=== PATIENT | male | born 1950 | race Caucasian/White ===

== ENCOUNTER 2020-04-01 06:09 | Outpatient (REF) | payer BC, SELFPAY ==
[2020-04-01 07:39] LABS: MANUAL DIFF FLAG NO
[2020-04-01 07:42] LABS: Basophils Percent Auto 0.6 % (0-2); Eosinophils Absolute Auto 0.3 X10*3/uL (0.0-0.4); Eosinophils Percent Auto 5.5 % (0-4); Hematocrit 41.8 % (42-52); Hemoglobin 14.1 g/dl (14.0-18.0); Imm Gran Abs Auto 0.01 X10*3/uL (0.00-0.03); Imm Gran Pct Auto 0.2 % (0.0-0.4); Lymphocytes Absolute Auto 2.1 X10*3/uL (1.2-4.9); Lymphocytes Percent Auto 38.9 % (20-40); Mean Corpuscular HGB Conc 33.7 g/dl (31.0-36.0); Mean Corpuscular Hemoglobin 31.8 pg (27.0-33.0); Mean Corpuscular Volume 94.1 fL (80-98); Mean Platelet Volume 10.7 fL (9.4-12.4); Monocytes Absolute Auto 0.3 X10*3/uL (0.1-1.2); Monocytes Percent Auto 5.9 % (2-11); Neutrophils Absolute Auto 2.6 X10*3/uL (2.0-8.3); Neutrophils Percent Auto 48.9 % (45-73); Platelet Count 244 X10*3/uL (160-400); Red Blood Count 4.44 X10*6/uL (4.60-5.80); Red Cell Distribution Width 11.9 % (11.0-16.0); White Blood Count 5.3 X10*3/uL (4.8-10.8)
[2020-04-01 08:12] LABS: Alanine Aminotransferase 26 U/L (0-40); Albumin Level 4.3 g/dL (3.5-5.0); Alkaline Phosphatase 69 U/L (39-117); Anion Gap 11 (12-20); Aspartate Amino Transferase 19 U/L (5-37); Bilirubin Total 0.5 mg/dL (0.0-1.0); Blood Urea Nitrogen 17 mg/dL (9-16); Calcium 8.5 mg/dL (8.4-10.2); Carbon Dioxide 26 mmol/L (22-29); Chloride 106 mmol/L (96-108); Cholesterol 160 mg/dL; Estimated Glomerular Filt Rate > 60; Glucose Fasting 93 mg/dL (60-99); HDL Cholesterol 41 mg/dL; LDL Cholesterol Calculated 107 mg/dl; Potassium 4.4 mmol/l (3.3-5.1); Sodium 139 mmol/L (135-145); Total Protein 6.2 g/dL (6.5-8.0); Triglycerides 64 mg/dL
[2020-04-01 08:24] LABS: Glucose Urine UA NEG (NEG); Leukocyte Esterase Urine NEG (NEG); Nitrite Urine NEG (NEG); Specific Gravity - Urine 1.025 (1.005-1.025); Urine Blood NEG (NEG); Urine Ketones NEG (NEG); Urine Protein NEG (NEG-TRACE)
[2020-04-01 08:38] LABS: Appearance Urine CLEAR; Color Urine YELLOW; UACC Culture Trigger NO
[2020-04-01 08:42] LABS: Mucus Urine 2+ /LPF; RBC Urine 0 /HPF (0); Squamous Epithelial Cell Urine 1+ /LPF; WBC Urine 0 /HPF (0-4)
== END 2020-04-01 06:10 | disposition home or self-care (01) ==
LOC: HO.LAB 06:09
PROVIDERS: Visit Provider Internal Medicine
DX: E78.5 Hyperlipidemia, unspecified (principal); R73.01 Impaired fasting glucose; M17.9 Osteoarthritis of knee, unspecified; F17.200 Nicotine dependence, unspecified, uncomplicated; N40.0 Benign prostatic hyperplasia without lower urinary tract symptoms; E55.9 Vitamin D deficiency, unspecified; E66.3 Overweight
CPT/HCPCS: 36415; 80053; 80061; 81001; 81003; 82306; 84443; 85025

== ENCOUNTER 2020-05-02 15:05 | Outpatient (REF) | payer MEDICARE, SELFPAY | END 2020-05-02 15:06 | disposition home or self-care (01) | LOC: HO.LAB 15:05 | PROVIDERS: PCP Internal Medicine; Visit Provider Internal Medicine | DX: Z20.828 Contact with and (suspected) exposure to other viral communicable diseases (principal) | CPT/HCPCS: C9803; U0003 ==

== ENCOUNTER 2020-06-07 15:39 | Outpatient (REF) | payer MEDICARE, SELFPAY | END 2020-06-07 15:40 | disposition home or self-care (01) | LOC: HO.LAB 15:39 | PROVIDERS: Visit Provider Internal Medicine | DX: Z20.822 Contact with and (suspected) exposure to COVID-19 (principal) | CPT/HCPCS: 36415; C9803; U0003 ==

== ENCOUNTER 2020-06-28 14:43 | Outpatient (REF) | payer MEDICARE, SELFPAY | END 2020-06-28 14:44 | disposition home or self-care (01) | LOC: HO.LAB 14:43 | PROVIDERS: PCP Internal Medicine; Visit Provider Internal Medicine | DX: Z20.822 Contact with and (suspected) exposure to COVID-19 (principal) | CPT/HCPCS: 36415; C9803; U0003 ==

== ENCOUNTER 2020-07-11 14:45 | Outpatient (REF) | payer MEDICARE, SELFPAY | END 2020-07-11 14:46 | disposition home or self-care (01) | LOC: HO.LAB 14:45 | PROVIDERS: Visit Provider Internal Medicine | DX: Z20.822 Contact with and (suspected) exposure to COVID-19 (principal) | CPT/HCPCS: 36415; C9803; U0003; U0005 ==

== ENCOUNTER 2020-07-23 14:39 | Outpatient (REF) | payer MEDICARE, SELFPAY | END 2020-07-23 14:40 | disposition home or self-care (01) | LOC: HO.LAB 14:39 | PROVIDERS: PCP Internal Medicine; Visit Provider Internal Medicine | DX: Z20.822 Contact with and (suspected) exposure to COVID-19 (principal) | CPT/HCPCS: 36415; C9803; U0003; U0005 ==

== ENCOUNTER 2020-10-07 15:03 | Outpatient (REF) | payer MEDICARE, SELFPAY ==
[2020-10-07 15:23] LABS: COVID-19 Test Negative (Negative)
== END 2020-10-07 15:04 | disposition home or self-care (01) ==
LOC: HO.LAB 15:03
PROVIDERS: Visit Provider Internal Medicine
DX: Z20.822 Contact with and (suspected) exposure to COVID-19 (principal)
CPT/HCPCS: 36415; 87635; C9803

== ENCOUNTER 2021-01-08 15:01 | Outpatient (REF) | payer MEDICARE, SELFPAY | END 2021-01-08 15:02 | disposition home or self-care (01) | LOC: HO.LAB 15:01 | PROVIDERS: PCP Internal Medicine; Visit Provider Internal Medicine | DX: Z20.822 Contact with and (suspected) exposure to COVID-19 (principal) | CPT/HCPCS: C9803; U0003; U0005 ==

== ENCOUNTER 2021-02-06 12:38 | Outpatient (REF) | payer MEDICARE, SELFPAY | END 2021-02-06 12:39 | disposition home or self-care (01) | LOC: HO.LAB 12:38 | PROVIDERS: PCP Internal Medicine; Visit Provider Internal Medicine | DX: Z20.822 Contact with and (suspected) exposure to COVID-19 (principal) | CPT/HCPCS: C9803; U0003; U0005 ==

== ENCOUNTER 2021-05-12 08:56 | Outpatient (REF) | payer MEDICARE, SELFPAY ==
[2021-05-12 09:30] LABS: COVID-19 Test Negative (Negative)
== END 2021-05-12 08:57 | disposition home or self-care (01) ==
LOC: HO.LAB 08:56
PROVIDERS: Visit Provider Internal Medicine
DX: Z20.822 Contact with and (suspected) exposure to COVID-19 (principal)
CPT/HCPCS: 36415; 87635; C9803

== ENCOUNTER 2021-05-22 11:29 | Outpatient (REF) | payer MEDICARE, SELFPAY ==
[2021-05-22 13:19] LABS: COVID-19 Test Negative (Negative)
== END 2021-05-22 11:30 | disposition home or self-care (01) ==
LOC: HO.LAB 11:29
PROVIDERS: Visit Provider Internal Medicine
DX: Z20.822 Contact with and (suspected) exposure to COVID-19 (principal)
CPT/HCPCS: 36415; 87635; C9803

== ENCOUNTER 2021-06-03 10:22 | Outpatient (REF) | payer MEDICARE, SELFPAY ==
[2021-06-03 15:42] LABS: Binax Internal Control QC Valid; Binax Now Covid-19 Ag Negative (Negative)
[2021-06-03 15:43] LABS: Binax Lot number: 9864
== END 2021-06-03 10:23 | disposition home or self-care (01) ==
LOC: HO.LAB 10:22
PROVIDERS: Visit Provider Internal Medicine
DX: Z20.822 Contact with and (suspected) exposure to COVID-19 (principal)
CPT/HCPCS: 36415; C9803

== ENCOUNTER 2021-08-19 06:10 | Outpatient (REF) | payer MEDICARE, SELFPAY ==
[2021-08-19 06:30] LABS: MANUAL DIFF FLAG NO
[2021-08-19 07:30] LABS: Basophils Percent Auto 0.5 % (0-2); Eosinophils Absolute Auto 0.4 X10*3/uL (0.0-0.4); Eosinophils Percent Auto 6.4 % (0-4); Hematocrit 41.4 % (42.0-52.0); Hemoglobin 13.4 g/dl (14.0-18.0); Imm Gran Abs Auto 0.01 X10*3/uL (0.00-0.03); Imm Gran Pct Auto 0.2 % (0.0-0.4); Lymphocytes Absolute Auto 1.8 X10*3/uL (1.2-4.9); Mean Corpuscular HGB Conc 32.4 g/dl (31.0-36.0); Mean Corpuscular Hemoglobin 30.7 pg (27.0-33.0); Mean Platelet Volume 10.5 fL (9.4-12.4); Monocytes Absolute Auto 0.3 X10*3/uL (0.1-1.2); Neutrophils Absolute Auto 3.6 x10*3/uL (2.0-8.3); Neutrophils Percent Auto 58.9 % (45-73); Platelet Count 257 X10*3/uL (160-400); Red Blood Count 4.36 X10*6/uL (4.60-5.80); Red Cell Distribution Width 12.3 % (11.0-16.0); White Blood Count 6.1 X10*3/uL (4.8-10.8)
[2021-08-19 07:42] LABS: Appearance Urine CLEAR; Color Urine YELLOW; Glucose Urine UA NEG (NEG); Leukocyte Esterase Urine NEG (NEG); Nitrite Urine NEG (NEG); Specific Gravity - Urine >= 1.030 (1.005-1.025); Urine Blood NEG (NEG); Urine Ketones NEG (NEG); Urine Protein NEG (NEG-TRACE)
[2021-08-19 08:05] LABS: Estimated Average Glucose 111 mg/dL; Hemoglobin A1c % 5.5 %
[2021-08-19 08:08] LABS: Alanine Aminotransferase 23 U/L (0-40); Albumin Level 4.3 g/dL (3.5-5.0); Alkaline Phosphatase 89 U/L (39-117); Anion Gap 12 (12-20); Aspartate Amino Transferase 19 U/L (5-37); Bilirubin Total 0.7 mg/dL (0.0-1.0); Blood Urea Nitrogen 18 mg/dL (9-16); Calcium 9.7 mg/dL (8.4-10.2); Carbon Dioxide 27 mmol/L (22-29); Chloride 105 mmol/L (96-108); Cholesterol 160 mg/dL; Estimated Glomerular Filt Rate > 60; Glucose Fasting 103 mg/dL (60-99); HDL Cholesterol 47 mg/dL; Sodium 140 mmol/L (135-145); Total Protein 6.5 g/dL (6.5-8.0)
[2021-08-19 08:12] LABS: LDL Cholesterol Calculated 104 mg/dl; Triglycerides 48 mg/dL
[2021-08-19 08:34] LABS: TSH reflex Free T4 1.27 uIU/mL (0.32-4.0)
[2021-08-19 09:04] LABS: Folate 14.2 ng/mL (> or = 4.0); Vitamin B12 208 pg/mL (200-900)
[2021-08-20 07:43] LABS: Syphilis Screen Nonreactive (Nonreactive)
[2021-08-21 14:29] LABS: Vitamin D 25-OH Total 27.4 ng/mL (>30)
== END 2021-08-19 06:11 | disposition home or self-care (01) ==
LOC: HO.LAB 06:10
PROVIDERS: PCP Internal Medicine; Visit Provider Internal Medicine
DX: I10 Essential (primary) hypertension (principal); R73.01 Impaired fasting glucose; R41.3 Other amnesia; E78.00 Pure hypercholesterolemia, unspecified; E55.9 Vitamin D deficiency, unspecified
CPT/HCPCS: 36415; 80053; 80061; 81003; 82306; 82607; 82746; 83036; 84443; 85025; 86780

== ENCOUNTER 2021-09-29 09:37 | Outpatient (REF) | payer MEDICARE, SELFPAY ==
[2021-09-29 11:26] LABS: COVID-19 Test Negative (Negative); IDNOW Serial# 55D5AD1C
== END 2021-09-29 09:38 | disposition home or self-care (01) ==
LOC: HO.LAB 09:37
PROVIDERS: Visit Provider Internal Medicine
DX: Z20.822 Contact with and (suspected) exposure to COVID-19 (principal)
CPT/HCPCS: 87635; C9803

== ENCOUNTER 2022-02-12 09:09 | Day surgery (SDC) | payer MEDICARE, SELFPAY ==
[2022-02-06 11:05] VITALS: BMI 29.0
[2022-02-12 09:41] VITALS: BMI 25.0
[2022-02-12 09:46] VITALS: BP 117/55; PULSE 51; RESP 16; TEMP 36.8; O2SAT 98
--- NOTE | 2022-02-12 10:26 | W.PM.OPN ---
Operative Note Operative Note Date of Service: 02/12/22 Narrative: Preop diagnosis: 1. Right Carpal tunnel syndrome Postop diagnosis: same Procedure: 1. Right Carpal tunnel release Surgeon: Yesenia Poole MD Anesthesia: local block using 1% lidocaine with epinephrine Findings: Thickened transverse carpal ligament. EBL: Less than 5 mL Specimens: None Complications: None Disposition: Brought to recovery room in stable condition Plan: Follow-up for 10-14 days for wound check and suture removal Indications: The patient is a 72 years old, with right carpal tunnel syndrome that has been unresponsive to nonoperative management. The risks and benefits of operative treatment including but not limited to risk of damage to blood vessels, nerves, tendons, infection, persistent pain, persistent symptoms, or possible need for additional surgery were discussed with the patient and the patient wishes to proceed with surgery. Procedure: Once consent was obtained a local block was performed using a combination of 1% lidocaine with epinephrine. The patient was then brought back to the operating suite and placed on the operative table in supine position. A tourniquet was applied to the proximal aspect of the right upper extremity and the limb was prepped and draped in a standard surgical fashion. Once assured that we had a good block, a 2.0 cm longitudinal incision was made centered over the carpal tunnel. The incision was made through the skin to the subcutaneous tissues using a #15 blade. Dissection was made down to the level of the transverse carpal ligament with care being taken to protect the palmar cutaneous nerve. Once the transverse carpal ligament was clearly visualized, a longitudinal incision was made in the transverse carpal ligament 1st using a #15 blade, then using tenotomy scissors under direct visualization. Care was taken to look for and protect the motor branch of the median nerve when seen in this area. Once satisfied with our carpal tunnel release the wound was copiously irrigated with normal saline and hemostasis was obtained with a brief period of local pressure. The skin edges were reapproximated with some 5.0 nylon suture material and a sterile dressing was applied. The patient appears to have tolerated the procedure well and with no complications. All digits were well vascularized at the conclusion of the case.
[2022-02-12 12:09] VITALS: BP 135/62; PULSE 50; RESP 18; O2SAT 98
== END 2022-02-12 12:20 | disposition home or self-care (01) ==
PROVIDERS: PCP Internal Medicine; Visit Provider Orthopaedic Surgery
PROC: (CPT 64721; principal; 2022-02-12 10:40)
DX: G56.01 Carpal tunnel syndrome, right upper limb (principal); R20.0 Anesthesia of skin; R73.01 Impaired fasting glucose; M17.0 Bilateral primary osteoarthritis of knee; E66.3 Overweight; E55.9 Vitamin D deficiency, unspecified; E53.8 Deficiency of other specified B group vitamins; Z68.29 Body mass index [BMI] 29.0-29.9, adult; F17.210 Nicotine dependence, cigarettes, uncomplicated
CPT/HCPCS: 64721; J0171; J2795

== ENCOUNTER 2022-04-15 14:03 | Outpatient (REF) | payer MEDICARE, SELFPAY ==
--- NOTE | 2022-04-15 09:30 | EMG_ITS ---
Please see scanned EMG / Nerve Conduction Report. MTDD
== END 2022-04-15 14:04 | disposition home or self-care (01) ==
LOC: HO.NEURO 14:03
PROVIDERS: PCP Internal Medicine; Visit Provider Nurse Practitioner Family
DX: R20.2 Paresthesia of skin (principal)
CPT/HCPCS: 95885; 95913

== ENCOUNTER 2023-02-18 05:55 | Outpatient (REF) | payer MEDICARE, SELFPAY ==
[2023-02-18 06:12] LABS: MANUAL DIFF FLAG NO
[2023-02-18 07:33] LABS: Appearance Urine Clear; Color Urine Yellow; Glucose Urine UA Negative (Negative); Leukocyte Esterase Urine Negative (Negative); Nitrite Urine Negative (Negative); PH 5.5 (5.0-9.0); Specific Gravity - Urine >= 1.030 (1.005-1.025); Urine Blood Negative (Negative); Urine Ketones Negative (Negative); Urine Protein Trace mg/dL (Neg-Trace)
[2023-02-18 07:38] LABS: Basophils Percent Auto 0.6 % (0-2); Eosinophils Absolute Auto 0.1 X10*3/uL (0.0-0.4); Eosinophils Percent Auto 3.9 % (0-4); Hematocrit 38.8 % (42.0-52.0); Imm Gran Abs Auto 0.01 X10*3/uL (0.00-0.03); Imm Gran Pct Auto 0.3 % (0.0-0.4); Lymphocytes Absolute Auto 1.4 X10*3/uL (1.2-4.9); Mean Corpuscular HGB Conc 33.5 g/dl (31.0-36.0); Mean Corpuscular Hemoglobin 32.9 pg (27.0-33.0); Mean Corpuscular Volume 98.2 fL (80.0-98.0); Mean Platelet Volume 10.4 fL (9.4-12.4); Monocytes Absolute Auto 0.1 X10*3/uL (0.1-1.2); Neutrophils Absolute Auto 1.7 x10*3/uL (2.0-8.3); Neutrophils Percent Auto 50.2 % (45-73); Platelet Count 180 X10*3/uL (160-400); Red Blood Count 3.95 X10*6/uL (4.60-5.80); Red Cell Distribution Width 12.8 % (11.0-16.0); White Blood Count 3.3 X10*3/uL (4.8-10.8)
[2023-02-18 07:53] LABS: Estimated Average Glucose 108 mg/dL; Hemoglobin A1c % 5.4 % (<6.0)
[2023-02-18 08:17] LABS: Alanine Aminotransferase 24 U/L (0-40); Albumin Level 4.1 g/dL (3.5-5.0); Alkaline Phosphatase 67 U/L (39-117); Anion Gap 10 (12-20); Aspartate Amino Transferase 18 U/L (5-37); Bilirubin Total 0.5 mg/dL (0.0-1.0); Blood Urea Nitrogen 17 mg/dL (9-16); Carbon Dioxide 27 mmol/L (22-29); Chloride 109 mmol/L (96-108); Cholesterol 147 mg/dL (<200); Estimated Glomerular Filt Rate > 60; Glucose Fasting 92 mg/dL (60-99); HDL Cholesterol 53 mg/dL (>40); LDL Cholesterol Calculated 88 mg/dL (<100); Potassium 3.8 mmol/L (3.3-5.1); Sodium 142 mmol/L (135-145); Triglycerides 32 mg/dL (<150)
[2023-02-18 08:41] LABS: Vitamin D 25-OH Total 40.6 ng/mL (>30)
[2023-02-18 08:46] LABS: Prostate Specific Antigen 3.68 ng/mL (<0.05-4.0); Vitamin B12 350 pg/mL (200-900)
== END 2023-02-18 05:56 | disposition home or self-care (01) ==
LOC: HO.LAB 05:55
PROVIDERS: PCP Internal Medicine; Visit Provider Internal Medicine
DX: Z00.00 Encounter for general adult medical examination without abnormal findings (principal); E55.9 Vitamin D deficiency, unspecified; E53.8 Deficiency of other specified B group vitamins; E78.00 Pure hypercholesterolemia, unspecified; N40.0 Benign prostatic hyperplasia without lower urinary tract symptoms; R73.9 Hyperglycemia, unspecified; R30.0 Dysuria; Z12.5 Encounter for screening for malignant neoplasm of prostate
CPT/HCPCS: 36415; 80053; 80061; 81003; 82306; 82607; 82746; 83036; 84153; 84443; 85025

== ENCOUNTER 2023-02-18 11:54 | Outpatient (AMB) | payer MEDICARE, SELFPAY ==
[2023-02-18 12:28] VITALS: BP 132/80; PULSE 57; O2SAT 98; BMI 25.0
--- NOTE | 2023-02-18 12:28 | MHC.PC.OV ---
Vital Signs 02/18/23 12:28 Height 6 ft Weight 184 lb 8 oz BMI 25.0 BP 132/80 Blood Pressure Location Lt brachial Position Sitting Pulse 57 Pulse Source Pulse Oximeter Pulse Oximetry (%) 98 Oxygen Delivery Method Room Air Intake Visit Reasons: Retinal detachment repair on R eye, 02/22 Cytology Supervisor Required: No Accompanied by: Self / Same As Patient Allergies No Known Allergies [No Known Allergies*] Allergy (Verified 02/18/23 12:47) Medication List - Last Reconciled 02/18/23 by Monroe Boswell MD cholecalciferol (vitamin D3) 50 mcg PO DAILY ibuprofen 800 mg PO TID PRN mecobalamin (vitamin B12) 1,000 mcg PO DAILY 90 days oxycodone-acetaminophen 10-325 mg 1 tab PO .3 to 4 times a day PRN 28 days terazosin 2 mg PO DAILY 90 days Tobacco use date assessed: 02/18/23 Fall risk assessment: No Falls in past year Last assessed Fall Risk: 02/18/23 Dental Screening Dental Screen Date: 02/18/23 Did you have a dental visit in the last 12 months?: No Did you have a dental problem in the last 6 months where you did not have access to dental care?: No Was dental information given to patient?: No HPI Retinal detachment repair on R eye, 02/22 HPI Details Patient comes in today at the request of Dr. Clem Fuchs for a preoperative medical examination for clearance for surgery He is scheduled for a retinal detachment repair on his right eye under local anesthesia with IV sedation on 02/22/2023 at 1 PM Patient states that he feels okay presently He denies any headaches or dizziness Denies any chest pains, no shortness of breath No nausea/ vomiting, no abdominal pain No change in bowel habits noted States that his chronic joint pains remain adequately controlled on his current medications Had his follow-up labs done earlier today - would like to discuss and go over his results States that he still has not been scheduled for his colonoscopy yet and would like to get his referral renewed again [facility] Medical History Vitamin B12 deficiency Osteoarthritis of knees, bilateral Overweight (BMI 25.0-29.9) Smoker Erectile dysfunction Chronic left shoulder pain Vitamin D deficiency Benign prostatic hyperplasia Impaired fasting glucose Osteoarthritis of knee Dyslipidemia Surgical History Hx of appendectomy No pertinent past surgical history Family History Father CVD (cardiovascular disease) Mother Medical history unknown Social History Housing: House Alcohol intake: never Patient Tobacco Use Status: Current everyday Tobacco user Tobacco use type: Cigarette Cigarette Packs Per Day: 0.5 Cigarettes Per Day: 10 e-Cigarette/Vaping Use: Never Used Second Hand Smoke Exposure: Yes service: No Current occupational status: employed and retired 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 1. Little interest or pleasure in doing things: not at all 2. Feeling down, depressed, or hopeless: not at all 3. Trouble falling or staying asleep, or sleeping too much: not at all 4. Feeling tired or having little energy: not at all 5. Poor appetite or overeating: not at all 6. Feeling bad about yourself - or that you are a failure or have let yourself or your family down: not at all 7. Trouble concentrating on things, such as reading the newspaper or watching television: not at all 8. Moving or speaking so slowly that other people could have noticed. Or the opposite - being so fidgety or restless that you have been moving around a lot more than usual: not at all 9. Thoughts that you would be better off or of hurting yourself in some way: not at all Total score: 0 Depression Screening Interpretation: Negative 51616 - PHQ-9 Billing: Yes Source: Developed by Drs. Erick Gurrola, Genie New, Ector Rosas and colleagues, with an educational neo from [employer]. Thrive Questionnaire Date Thrive assessed: 02/18/23 I am a: Patient What is your living situation today?: I have a steady place to live Within the past 12 months, did the food you bought not last and you didn't have the money to get more?: Never true Within the past 12 months, did you worry whether your food would run out before you got money to buy more?: Never true Do you have trouble paying for medicines?: No Do you have trouble getting transportation to medical appointments?: No Do you have trouble paying your heating and electricity bill?: No Do you have trouble taking care of your child, family member or friend?: No Do you have trouble with day-to-day activities such as bathing, preparing meals, shopping, managing finances, etc.?: No Are you currently unemployed and looking for a job?: No Are you interested in more education?: No Please select the resources that you would like help with: None Currently or been in a relationship where the following occur: no concerns reported AUDIT C Alcohol Use Questionnaire (AUDIT-C) 1. How often do you have a drink containing alcohol?: Never 3. How often do you have six or more drinks on one occasion?: Never Total Score: 0 Score Reviewed/Action Taken: Yes YOLI-7 AMB Questionnaire YOLI-7 Date YOLI - 7 assessed: 02/18/23 Feeling nervous, anxious, or on edge: 0 = Not at all Not being able to stop or control worryin = Not at all Worrying too much about different things: 0 = Not at all Trouble relaxin = Not at all Being so restless that it is hard to sit still: 0 = Not at all Becoming easily annoyed or irritable: 0 = Not at all Feeling afraid as if something awful might happen: 0 = Not at all Total YOLI-7 score (0-4 normal; 5-9 mild; 10-14 moderate; 15-21 severe): 0 Source: Developed by Drs. Erick Gurrola, Genie New, Ector Rosas and colleagues, with an educational neo from [employer]. Review of Systems Const Denies fatigue, Denies fever(s) and Denies headache(s) ENT Denies dysphagia, Denies dizziness, Denies otalgia, Denies headache(s), Denies neck pain, Denies odynophagia and Denies sore throat Card Denies chest pain, Denies rapid heart rate, Denies irregular heart rhythm, Denies palpitations and Denies dyspnea Resp Denies chest congestion, Denies cough, Denies dyspnea and Denies wheezing GI Denies abdominal pain, Denies constipation, Denies dysphagia, Denies diarrhea, Denies nausea, Denies odynophagia and Denies vomiting Denies dysuria, Reports nocturia (improved with Terazosin) and Denies urinary frequency Musc Denies back pain, Reports arthralgias (in both knees (chronic); left shoulder) and Denies neck pain Skin/Breast Denies rash Neuro Denies dizziness, Denies headache(s) and Denies paresthesias Endo Denies fatigue and Denies palpitations Aller/Immun Denies wheezing Physical exam (Primary Care) Vital Signs: Last Vital Signs Pulse 57 02/18/23 12:28 BP 132/80 02/18/23 12:28 Pulse Ox 98 02/18/23 12:28 Oxygen Delivery Method Room Air 02/18/23 12:28 BMI result Body Mass Index 25.0 Tobacco/Smoking Status: Tobacco use Status Tobacco use date assessed 02/18/23 02/18/23 12:33 Patient Tobacco Use Status Current everyday Tobacco 02/18/23 12:33 Tobacco use type Cigarette 02/18/23 12:33 e-Cigarette/Vaping Use Never Used 02/18/23 12:33 PHQ-9: PHQ-9 Score PHQ-9: Total score 0 02/18/23 13:55 Depression Screening Interpretation: Negative Thrive Assessment: Date of Thrive Assessment Date Thrive assessed 02/18/23 02/18/23 12:33 Currently or been in a relationship where the following occur: no concerns reported Const General: no acute distress and alert HENMT Ears: TM's normal bilaterally and EAC's normal Throat: Yes posterior oropharynx normal and Yes tonsils normal (no TP congestion) Neck Neck: Yes no lymphadenopathy and Yes supple Thyroid: Thyroid normal Resp Auscultation: clear to auscultation bilaterally, no rales and no wheezes Cardio Rate: regular rate Rhythm: regular rhythm Heart sounds: no murmurs GI Palpation (GI): Soft to palpation and nontender Auscultation: normal bowel sounds General: Yes no CVA tenderness Back/Spine/Pelvis Back: no CVA tenderness Skin Rashes: no rashes Extrem General: Yes no clubbing, cyanosis or edema Left upper extremity: shoulder/upper arm Details: tenderness Location: of the A-C joint and normal ROM Right lower extremity: knee Details: tenderness; no swelling Left lower extremity: knee Details: tenderness; no swelling Results Reviewed Results Reviewed: Laboratory Tests 02/18/23 06:10 WBC 3.3 L Hgb 13.0 L Hct 38.8 L Plt Count 180 D Sodium 142 Potassium 3.8 Creatinine 0.75 Estimated GFR > 60 Fasting Glucose 92 Hemoglobin A1c % 5.4 Calcium 9.0 D AST 18 ALT 24 Triglycerides 32 Cholesterol 147 LDL Cholesterol, Calc 88 HDL Cholesterol 53 Prostate Specific Ag 3.68 Vitamin B12 350 25-OH Vitamin D Total 40.6 TSH 1.60 Ur Specific Ceiba >= 1.030 H Urine Protein Trace Urine Glucose (UA) Negative Urine Blood Negative Assessment and Plan Assessment & Plan (1) Preoperative examination: Code(s): Z01.818 - Encounter for other preprocedural examination Plan: Patient presents with acceptable risks for planned low cardiac risk procedure He does not have any significant cardiac or pulmonary history and has no contraindications to undergo planned surgery Results of his labs done earlier today reviewed and discussed with patient (2) Retinal detachment, right: Code(s): H33.21 - Serous retinal detachment, right eye Plan: He is scheduled for retinal detachment repair of his right eye under local anesthesia with IV sedation on 02/22/[address] Clem Fuchs (3) Dyslipidemia: Code(s): E78.5 - Hyperlipidemia, unspecified Plan: Reinforced low cholesterol diet (4) Osteoarthritis of knees, bilateral: Code(s): M17.0 - Bilateral primary osteoarthritis of knee Qualifiers: Osteoarthritis type: primary Qualified Code(s): M17.0 - Bilateral primary osteoarthritis of knee Plan: Continue Ibuprofen 800 mg TID PRN and Oxycodone-Acetaminophen 10-325 mg 1 tablet 3 to 4 times a day as needed for increased pain; he is reminded to wean hold his Ibuprofen until his upcoming eye surgery is completed Follow up with orthopedics as scheduled (5) Chronic left shoulder pain: Code(s): M25.512 - Pain in left shoulder; G89.29 - Other chronic pain Plan: States that his shoulder pain has been controlled with cortisone injections from orthopedics every few months when needed Follow up with orthopedics as scheduled (6) Impaired fasting glucose: Code(s): R73.01 - Impaired fasting glucose Plan: Both his HgbA1c (5.4%) and FBS (92 mg/dl) were normal on his labs done earlier today Reinforced low calorie/low carb diet (7) Vitamin D deficiency: Code(s): E55.9 - Vitamin D deficiency, unspecified Plan: Continue Vitamin D3 2000 units QD (8) Vitamin B12 deficiency: Code(s): E53.8 - Deficiency of other specified B group vitamins Plan: Continue Vitamin B12 1000 mcg QD (9) Benign prostatic hyperplasia: Comment: S/P laser prostatectomy Code(s): N40.0 - Benign prostatic hyperplasia without lower urinary tract symptoms Qualifiers: Lower urinary tract symptom detail: urinary frequency Lower urinary tract symptom presence: symptoms present Qualified Code(s): N40.1 - Benign prostatic hyperplasia with lower urinary tract symptoms; R35.0 - Frequency of micturition Plan: Continue Terazosin 2 mg Q HS Advised that his serum PSA level remains mostly unchanged from previous at 3.68 on his recent labs Follow up with urology as scheduled (10) Erectile dysfunction: Code(s): N52.9 - Male erectile dysfunction, unspecified Qualifiers: Erectile dysfunction type: unspecified Qualified Code(s): N52.9 - Male erectile dysfunction, unspecified Plan: Continue Cialis 20 mg QD PRN (11) Smoker: Code(s): F17.200 - Nicotine dependence, unspecified, uncomplicated Plan: Counseled again on smoking cessation (12) Colon cancer screening: Code(s): Z12.11 - Encounter for screening for malignant neoplasm of colon Plan: Per patient request, will refer him again for screening colonoscopy He has been previously referred a few times over the past 2 to 3 years but he was never scheduled Plan He is currently medically optimized and has no medical contraindications to undergo eye surgery as planned - is CLEARED for SURGERY Follow up in 4 months Orders: Referrals Gastroenterology Referral Z12.11 - Encounter for screening for malignant neoplasm of colon Coding Level of Care Code Est Pt Level 4 (21107) Diagnoses Preoperative examination Z01.818 Retinal detachment, right H33.21 Dyslipidemia E78.5 Primary osteoarthritis of both knees M17.0 Osteoarthritis type: primary Chronic left shoulder pain M25.512; G89.29 Impaired fasting glucose R73.01 Vitamin D deficiency E55.9 Vitamin B12 deficiency E53.8 Benign prostatic hyperplasia with urinary frequency N40.1; R35.0 Lower urinary tract symptom detail: urinary frequency Lower urinary tract symptom presence: symptoms present Erectile dysfunction, unspecified erectile dysfunction type N52.9 Erectile dysfunction type: unspecified Smoker F17.200 Colon cancer screening Z12.11
== END 2023-02-18 12:59 | disposition home or self-care (01) ==
PROVIDERS: PCP Internal Medicine; Visit Provider Internal Medicine
DX: H33.21 Serous retinal detachment, right eye (principal); E55.9 Vitamin D deficiency, unspecified; Z01.818 Encounter for other preprocedural examination; F17.210 Nicotine dependence, cigarettes, uncomplicated; E78.5 Hyperlipidemia, unspecified; M17.0 Bilateral primary osteoarthritis of knee; M25.512 Pain in left shoulder; R73.01 Impaired fasting glucose; E53.8 Deficiency of other specified B group vitamins; N40.1 Benign prostatic hyperplasia with lower urinary tract symptoms; R35.0 Frequency of micturition; N52.9 Male erectile dysfunction, unspecified
CPT/HCPCS: 99214

== ENCOUNTER 2023-05-03 12:37 | Outpatient (AMB) | payer MEDICARE, SELFPAY ==
--- NOTE | 2023-05-03 13:05 | HO.NEPHOV ---
HPI Colonoscopy screening HPI Details 73 year old? female here today for pre colonoscopy screening.? Patient was sent to us by his PCP.? This is his first colonoscopy screening.? Patient denies any gastrointestinal symptoms in the past or at present.? Denies any personal or family history of gastrointestinal disease, colon polyps, or cancer.? Denies history of difficulty with sedation or anesthesia in the past.? Negative for history of sleep apnea.? Denies any history of cardiac, renal, pulmonary, or hepatic disease.?? No history of infectious? diseases like hepatitis A, B, C, HIV or tuberculosis.? Patient is not on any anticoagulation therapy. [facility] Medical History Vitamin B12 deficiency Osteoarthritis of knees, bilateral Overweight (BMI 25.0-29.9) Smoker Erectile dysfunction Chronic left shoulder pain Vitamin D deficiency Benign prostatic hyperplasia Impaired fasting glucose Osteoarthritis of knee Dyslipidemia Surgical History Hx of appendectomy No pertinent past surgical history Family History Father CVD (cardiovascular disease) Mother Medical history unknown Social History Housing: House Alcohol intake: never Patient Tobacco Use Status: Current everyday Tobacco user Tobacco use type: Cigarette Cigarette Packs Per Day: 0.5 Cigarettes Per Day: 10 e-Cigarette/Vaping Use: Never Used Second Hand Smoke Exposure: Yes service: No Current occupational status: employed and retired 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 Denies any issues with anesthesia in the past.? Denies any history of sleep apnea.? No history infectious diseases in the past or present.? Not on any anticoagulation therapy.? No family or personal history of colon cancer or polyps.? Patient denies melena, hematochezia, unintentional weight loss or ribbon like stools.? Discussed at length the pre-procedure,? prep, diet & medications as well as what to expect prior, during and after the procedure.?? Stressed the importance of good bowel prep. ?Recommended the use of Vaseline or Calmoseptine OTC & baby wipes with bowel movements to promote comfort.? ?Patient verbalizes understanding and agrees to plan of care.? He was given the opportunity to ask questions and all questions answered.? We will see him after the procedure. Coding Diagnoses Colon cancer screening Z12.11 Results Reviewed Nephrology Results: Hgb 13.0 g/dl (14.0-18.0) L 02/18/23 WBC 3.3 X10*3/uL (4.8-10.8) L 02/18/23 Plt Count 180 X10*3/uL (160-400) 02/18/23 Sodium 142 mmol/L (135-145) 02/18/23 Potassium 3.8 mmol/L (3.3-5.1) 02/18/23 Chloride 109 mmol/L (96-108) H 02/18/23 Carbon Dioxide 27 mmol/L (22-29) 02/18/23 BUN 17 mg/dL (9-16) H 02/18/23 Creatinine 0.75 mg/dL (0.5-1.4) 02/18/23 Calcium 9.0 mg/dL (8.4-10.2) 02/18/23 Urine Protein Trace mg/dL (Neg-Trace) 02/18/23
[2023-05-03 13:06] VITALS: BP 118/61; PULSE 66; BMI 25.8
--- NOTE | 2023-05-03 13:23 | MHC.OFFVIS ---
Intake Vital Signs 05/03/23 13:06 Height 6 ft Weight 190 lb 7.67 oz BMI 25.8 BP 118/61 Blood Pressure Location Lt brachial Position Sitting Pulse 66 Intake Visit Reasons: Colonoscopy screening Intake Note: Patient presents to in office visit today as a new patient for colonoscopy screening. CC: Patient denies having any GI symptoms and states he has never had a colonoscopy. Want Ad Clerk Required: No Allergies No Known Allergies [No Known Allergies*] Allergy (Verified 05/03/23 13:14) HPI Colonoscopy screening HPI Details 73 year old? male here today for pre colonoscopy screening.? Patient was sent to us by his PCP.? This is his first colonoscopy screening.? Patient denies any gastrointestinal symptoms in the past or at present.? Denies any personal or family history of gastrointestinal disease, colon polyps, or cancer.? Denies history of difficulty with sedation or anesthesia in the past.? Negative for history of sleep apnea.? Denies any history of cardiac, renal, pulmonary, or hepatic disease.?? No history of infectious? diseases like hepatitis A, B, C, HIV or tuberculosis.? Patient is not on any anticoagulation therapy. [facility] Medical History Vitamin B12 deficiency Osteoarthritis of knees, bilateral Overweight (BMI 25.0-29.9) Smoker Erectile dysfunction Chronic left shoulder pain Vitamin D deficiency Benign prostatic hyperplasia Impaired fasting glucose Osteoarthritis of knee Dyslipidemia Surgical History Hx of appendectomy No pertinent past surgical history Family History Father CVD (cardiovascular disease) Mother Medical history unknown Social History Housing: House Alcohol intake: never Patient Tobacco Use Status: Current everyday Tobacco user Tobacco use type: Cigarette Cigarette Packs Per Day: 0.5 Cigarettes Per Day: 10 e-Cigarette/Vaping Use: Never Used Second Hand Smoke Exposure: Yes service: No Current occupational status: employed and retired 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 Cognitive needs: No Hearing needs: No Vision needs: Yes Review of Systems Const Denies weight gain and Denies weight loss ENT Reports no additional complaints, Denies dysphagia and Denies odynophagia Card Reports no additional complaints Resp Reports no additional complaints GI Denies abdominal pain, Denies belching, Denies melena, Denies bloating, Denies change in bowel habits, Denies dysphagia, Denies excessive flatus, Denies dyspepsia, Denies heartburn, Denies diarrhea, Denies loose stools, Denies nausea, Denies odynophagia and Denies vomiting Reports no additional complaints Musc Reports no additional complaints Neuro Reports no additional complaints Psych Reports no additional complaints Endo Reports no additional complaints Physical Exam Vital Signs: Last Vital Signs Pulse 66 05/03/23 13:06 BP 118/61 05/03/23 13:06 BMI result Body Mass Index 25.8 Const General: healthy appearing, no acute distress and well developed Nutritional Appearance: well nourished Orientation/consciousness: patient oriented x3 HEENT Head: Yes normal to inspection, Yes normocephalic and Yes atraumatic Face and sinus: Yes normal facial exam Mouth: Normal oral and palatal mucosa present Throat: Yes posterior oropharynx normal, Yes tonsils normal and Yes uvula midline Eyes General: appearance normal, both eyes and all related structures Neck Neck: Yes normal visual inspection, Yes full ROM and Yes trachea midline Thyroid: Thyroid normal Resp Effort & Inspection: normal respiratory effort, able to speak in complete sentences, no tracheal deviation and symmetric chest movement Auscultation: clear to auscultation bilaterally Cardio Rate: regular rate GI Inspection: Yes normal to inspection and No distended Palpation (GI): Soft to palpation, not firm, nontender and No hepatosplenomegaly present Auscultation: normal bowel sounds General: Yes no CVA tenderness Back/Spine/Pelvis Back: no CVA tenderness Skin General skin exam: elasticity normal, turgor normal and dry skin Neuro General: patient oriented x3 Psych Appearance: grossly normal Mental Status: mental status grossly normal Affect: normal affect Assessment & Plan Assessment & Plan (1) Colon cancer screening: Code(s): Z12.11 - Encounter for screening for malignant neoplasm of colon Plan Patient denies any GI, cardiac or respiratory symptoms.? Denies any issues with anesthesia in the past.? Denies any history of sleep apnea.? No history infectious diseases in the past or present.? Not on any anticoagulation therapy.? No family or personal history of colon cancer or polyps.? Patient denies melena, hematochezia, unintentional weight loss or ribbon like stools.? Discussed at length the pre-procedure,? prep, diet & medications as well as what to expect prior, during and after the procedure.?? Stressed the importance of good bowel prep. ?Recommended the use of Vaseline or Calmoseptine OTC & baby wipes with bowel movements to promote comfort.? ?Patient verbalizes understanding and agrees to plan of care.? He was given the opportunity to ask questions and all questions answered.? We will see him after the procedure.? Medications: New bisacodyl (Dulcolax (bisacodyl)) take 4 tabs at noon the day before your colonoscopy 20 mg (4 x 5 mg) PO ONCE 1 day 4 tabs 0RF constipation Z12.11 - Encounter for screening for malignant neoplasm of colon polyethylene glycol 3350 (Miralax) As directed by gastroenterology department at [facility] 238 grams PO ONCE 238 grams 0RF Z12.11 - Encounter for screening for malignant neoplasm of colon Coding Level of Care Code New Pt Level 3 (85571) Diagnoses Colon cancer screening Z12.11 Time Spent (min) 40 Comment 30 minutes spent with patient and additional 10 minutes spent reviewing his records
== END 2023-05-03 13:36 | disposition home or self-care (01) ==
PROVIDERS: PCP Internal Medicine; Visit Provider Nurse Practitioner Family
DX: Z01.818 Encounter for other preprocedural examination (principal); Z12.11 Encounter for screening for malignant neoplasm of colon
CPT/HCPCS: 99202

== ENCOUNTER → 2023-05-03 12:37 | Outpatient (BNVA) | payer MEDICARE, SELFPAY | PROVIDERS: PCP Internal Medicine; Visit Provider Nurse Practitioner Family | DX: Z12.11 Encounter for screening for malignant neoplasm of colon (principal) | CPT/HCPCS: 99202 ==

== ENCOUNTER 2023-06-21 14:26 | Outpatient (AMB) | payer MEDICARE, SELFPAY ==
[2023-06-21 14:29] VITALS: BP 132/86; PULSE 82; O2SAT 98; BMI 25.4
--- NOTE | 2023-06-21 14:29 | MHC.PC.OV ---
Vital Signs 06/21/23 14:29 Height 6 ft Weight 187 lb 4 oz BMI 25.4 BP 132/86 Blood Pressure Location Lt brachial Position Sitting Pulse 82 Pulse Source Pulse Oximeter Pulse Oximetry (%) 98 Oxygen Delivery Method Room Air Intake Visit Reasons[facility] Evs Attendant Required: No Accompanied by: Self / Same As Patient Allergies No Known Allergies [No Known Allergies*] Allergy (Verified 07/22/23 12:36) Tobacco use date assessed: 06/21/23 Fall risk assessment: No Falls in past year Last assessed Fall Risk: 06/21/23 Dental Screening Dental Screen Date: 06/21/23 Did you have a dental visit in the last 12 months?: No Did you have a dental problem in the last 6 months where you did not have access to dental care?: No Was dental information given to patient?: No HPI [facility] HPI Details Patient comes in today for his follow up visit States that he has been experiencing increased fatigued lately Has also noticed that he feels very tired and sleepy throughout the day more often than before over the past several weeks and wants to see if he can get tested for sleep apnea He denies any headaches or dizziness Denies any chest pains, no SOB No nausea/vomiting, no abdominal pain No change in bowel habits noted States that his chronic joint pains remain adequately controlled on his current medications - needs his pain med Rx and Vitamin B12 Rx refilled Adds that he still has ED (ongoing for a few years now) and that his previous Rx of Cialis does not seem to be helping him much lately No follow up labs were ordered or needed for him after he was last seen in January 2023 [facility] Medical History Vitamin B12 deficiency Osteoarthritis of knees, bilateral Overweight (BMI 25.0-29.9) Smoker Erectile dysfunction Chronic left shoulder pain Vitamin D deficiency Benign prostatic hyperplasia Impaired fasting glucose Osteoarthritis of knee Dyslipidemia Surgical History Hx of appendectomy No pertinent past surgical history Family History Father CVD (cardiovascular disease) Mother Medical history unknown Social History Housing: House Alcohol intake: never Patient Tobacco Use Status: Current everyday Tobacco user Tobacco use type: Cigarette Cigarette Packs Per Day: 0.5 Cigarettes Per Day: 10 e-Cigarette/Vaping Use: Never Used Second Hand Smoke Exposure: Yes service: No Current occupational status: employed and retired 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 1. Little interest or pleasure in doing things: not at all 2. Feeling down, depressed, or hopeless: not at all 3. Trouble falling or staying asleep, or sleeping too much: not at all 4. Feeling tired or having little energy: not at all 5. Poor appetite or overeating: not at all 6. Feeling bad about yourself - or that you are a failure or have let yourself or your family down: not at all 7. Trouble concentrating on things, such as reading the newspaper or watching television: not at all 8. Moving or speaking so slowly that other people could have noticed. Or the opposite - being so fidgety or restless that you have been moving around a lot more than usual: not at all 9. Thoughts that you would be better off or of hurting yourself in some way: not at all Total score: 0 Depression Screening Interpretation: Negative Depression Screening Done: Yes 58327 - PHQ-9 Billing: Yes Source: Developed by Drs. Erick Gurrola, Genie New, Ector Rosas and colleagues, with an educational neo from [employer]. Thrive Questionnaire Date Thrive assessed: 06/21/23 I am a: Patient What is your living situation today?: I have a steady place to live Within the past 12 months, did the food you bought not last and you didn't have the money to get more?: Never true Within the past 12 months, did you worry whether your food would run out before you got money to buy more?: Never true Do you have trouble paying for medicines?: No Do you have trouble getting transportation to medical appointments?: No Do you have trouble paying your heating and electricity bill?: No Do you have trouble taking care of your child, family member or friend?: No Do you have trouble with day-to-day activities such as bathing, preparing meals, shopping, managing finances, etc.?: No Are you currently unemployed and looking for a job?: No Are you interested in more education?: No Please select the resources that you would like help with: None Currently or been in a relationship where the following occur: no concerns reported THRIVE Score: 0 AUDIT C Alcohol Use Questionnaire (AUDIT-C) 1. How often do you have a drink containing alcohol?: Never 3. How often do you have six or more drinks on one occasion?: Never Total Score: 0 Score Reviewed/Action Taken: Yes YOLI-7 AMB Questionnaire YOLI-7 Date YOLI - 7 assessed: 06/21/23 Feeling nervous, anxious, or on edge: 0 = Not at all Not being able to stop or control worryin = Not at all Worrying too much about different things: 0 = Not at all Trouble relaxin = Not at all Being so restless that it is hard to sit still: 0 = Not at all Becoming easily annoyed or irritable: 0 = Not at all Feeling afraid as if something awful might happen: 0 = Not at all Total YOLI-7 score (0-4 normal; 5-9 mild; 10-14 moderate; 15-21 severe): 0 Source: Developed by Drs. Erick Gurrola, Genie New, Ector oRsas and colleagues, with an educational neo from [employer]. Review of Systems Const Denies chills, Reports daytime sleepiness, Reports fatigue (increased lately), Denies fever(s) and Denies headache(s) ENT Denies dysphagia, Denies dizziness, Denies otalgia, Denies headache(s), Denies neck pain, Denies odynophagia and Denies sore throat Card Denies chest pain, Denies rapid heart rate, Denies irregular heart rhythm, Denies palpitations and Denies dyspnea Resp Denies chest congestion, Denies cough, Denies dyspnea and Denies wheezing GI Denies abdominal pain, Denies constipation, Denies dysphagia, Denies diarrhea, Denies nausea, Denies odynophagia and Denies vomiting Reports erectile dysfunction, Denies dysuria, Denies nocturia (improved with Terazosin) and Denies urinary frequency Musc Denies back pain, Reports arthralgias (in both knees (chronic); in the left shoulder) and Denies neck pain Skin/Breast Denies rash Neuro Denies dizziness, Denies headache(s) and Denies paresthesias Endo Reports fatigue (increased lately) and Denies palpitations Aller/Immun Denies wheezing Physical exam (Primary Care) Vital Signs: Last Vital Signs Pulse 82 06/21/23 14:29 BP 132/86 06/21/23 14:29 Pulse Ox 98 06/21/23 14:29 Oxygen Delivery Method Room Air 06/21/23 14:29 BMI result Body Mass Index 25.4 Tobacco/Smoking Status: Tobacco use Status Tobacco use date assessed 06/21/23 06/21/23 14:34 Patient Tobacco Use Status Current everyday Tobacco 06/21/23 14:34 Tobacco use type Cigarette 06/21/23 14:34 e-Cigarette/Vaping Use Never Used 06/21/23 14:34 PHQ-9: PHQ-9 Score PHQ-9: Total score 0 06/21/23 15:14 Depression Screening Interpretation: Negative Thrive Assessment: Date of Thrive Assessment Date Thrive assessed 06/21/23 06/21/23 14:34 Currently or been in a relationship where the following occur: no concerns reported Const General: no acute distress and alert HENMT Ears: TM's normal bilaterally and EAC's normal Throat: Yes posterior oropharynx normal and Yes tonsils normal (no TP congestion) Neck Neck: Yes no lymphadenopathy and Yes supple Thyroid: Thyroid normal Resp Auscultation: clear to auscultation bilaterally, no rales and no wheezes Cardio Rate: regular rate Rhythm: regular rhythm Heart sounds: no murmurs GI Palpation (GI): Soft to palpation and nontender Auscultation: normal bowel sounds General: Yes no CVA tenderness Back/Spine/Pelvis Back: no CVA tenderness Thoracic/Lumbar Spine: No lumbar spinal tenderness Skin Rashes: no rashes Extrem General: Yes no clubbing, cyanosis or edema Left upper extremity: shoulder/upper arm Details: tenderness Location: of the A-C joint and normal ROM Right lower extremity: knee Details: tenderness; no swelling Left lower extremity: knee Details: tenderness; no swelling Assessment and Plan Assessment & Plan (1) Fatigue: Code(s): R53.83 - Other fatigue Qualifiers: Fatigue type: unspecified Qualified Code(s): R53.83 - Other fatigue Plan: Have discussed with patient that his recently increasing fatigue is likely multifactorial, including the fact that he is on opioid Rx on a chronic basis, as well as his difficulty sleeping through the night due to his prostate issues As he is concerned about the possibility of sleep apnea, will refer him to Sleep Medicine for further evaluation and management (2) Daytime somnolence: Code(s): R40.0 - Somnolence Plan: Will refer him to Sleep Medicine for further evaluation and to assess for sleep apnea (3) Dyslipidemia: Code(s): E78.5 - Hyperlipidemia, unspecified Plan: Reinforced low cholesterol diet His fasting lipids when last checked in January 2023 were within normal range/at or near goal Will recheck his labs and fasting lipids in a couple of months for follow up (4) Osteoarthritis of knees, bilateral: Code(s): M17.0 - Bilateral primary osteoarthritis of knee Qualifiers: Osteoarthritis type: primary Qualified Code(s): M17.0 - Bilateral primary osteoarthritis of knee Plan: Continue Ibuprofen 800 mg TID PRN and Oxycodone-Acetaminophen 10-325 mg 1 tablet 3 to 4 times a day as needed for increased pain (Rx refilled) Follow up with orthopedics as scheduled (5) Chronic left shoulder pain: Code(s): M25.512 - Pain in left shoulder; G89.29 - Other chronic pain Plan: States that his shoulder pain has been adequately controlled/managed with cortisone injections from orthopedics every few months when needed Follow up with orthopedics as scheduled (6) Impaired fasting glucose: Code(s): R73.01 - Impaired fasting glucose Plan: Both his HgbA1c (5.4%) and FBS (92 mg/dl) were normal on his labs done back in January 2023 Reinforced low calorie/low carb diet (7) Vitamin D deficiency: Code(s): E55.9 - Vitamin D deficiency, unspecified Plan: Continue Vitamin D3 2000 units QD (8) Vitamin B12 deficiency: Code(s): E53.8 - Deficiency of other specified B group vitamins Plan: Continue Vitamin B12 1000 mcg QD (9) Benign prostatic hyperplasia: Comment: S/P laser prostatectomy Code(s): N40.0 - Benign prostatic hyperplasia without lower urinary tract symptoms Qualifiers: Lower urinary tract symptom presence: symptoms present Lower urinary tract symptom detail: urinary frequency Qualified Code(s): N40.1 - Benign prostatic hyperplasia with lower urinary tract symptoms; R35.0 - Frequency of micturition Plan: Continue Terazosin 2 mg Q HS His serum PSA level remained mostly unchanged from previous at 3.68 on his most recent labs Follow up with urology as scheduled (10) Erectile dysfunction: Code(s): N52.9 - Male erectile dysfunction, unspecified Qualifiers: Erectile dysfunction type: unspecified Qualified Code(s): N52.9 - Male erectile dysfunction, unspecified Plan: Was on Cialis 20 mg QD PRN in the past but he states that they are no longer helping as much Will try switching him over to Sildenafil 50 mg PRN (11) Smoker: Code(s): F17.200 - Nicotine dependence, unspecified, uncomplicated Plan: Counseled again on smoking cessation Plan To return in July 2023 for his preop exam and follow up Orders: Orders Complete Blood Count Auto Diff 08/09/23 D64.9 - Anemia, unspecified Vitamin D 25-OH Total 08/09/23 E55.9 - Vitamin D deficiency, unspecified Comprehensive [place]. Panel Fast 08/09/23 E78.00 - Pure hypercholesterolemia, unspecified Lipid Panel 08/09/23 E78.00 - Pure hypercholesterolemia, unspecified TSH reflex Free T4 08/09/23 E78.00 - Pure hypercholesterolemia, unspecified UA CC w/rflx Micro + Cult 08/09/23 R30.0 - Dysuria Referrals Sleep Medicine Referral R53.83 - Other fatigue, R40.0 - Somnolence Medications: New sildenafil administer 30 minutes to 4 hours before activity 50 mg PO DAILY PRN 6 tabs 0RF sexual activity Changed From mecobalamin (vitamin B12) 1,000 mcg PO DAILY 90 days 90 tabs 1RF To mecobalamin (vitamin B12) 1,000 mcg PO DAILY 90 tabs 1RF 90 days Refilled oxycodone-acetaminophen 10-325 mg 1 tab PO .3 to 4 times a day PRN 112 tabs 0RF pain 28 days Coding Level of Care Code Est Pt Level 4 (44002) Diagnoses Fatigue, unspecified type R53.83 Fatigue type: unspecified Daytime somnolence R40.0 Dyslipidemia E78.5 Primary osteoarthritis of both knees M17.0 Osteoarthritis type: primary Chronic left shoulder pain M25.512; G89.29 Impaired fasting glucose R73.01 Vitamin D deficiency E55.9 Vitamin B12 deficiency E53.8 Benign prostatic hyperplasia with urinary frequency N40.1; R35.0 Lower urinary tract symptom presence: symptoms present Lower urinary tract symptom detail: urinary frequency Erectile dysfunction, unspecified erectile dysfunction type N52.9 Erectile dysfunction type: unspecified Smoker F17.200
== END 2023-06-21 15:17 | disposition home or self-care (01) ==
PROVIDERS: PCP Internal Medicine; Visit Provider Internal Medicine
DX: R53.83 Other fatigue (principal); R40.0 Somnolence; E78.5 Hyperlipidemia, unspecified; M17.0 Bilateral primary osteoarthritis of knee; M25.512 Pain in left shoulder; G89.29 Other chronic pain; R73.01 Impaired fasting glucose; E55.9 Vitamin D deficiency, unspecified; E53.8 Deficiency of other specified B group vitamins; N40.1 Benign prostatic hyperplasia with lower urinary tract symptoms; R35.0 Frequency of micturition; N52.9 Male erectile dysfunction, unspecified; F17.200 Nicotine dependence, unspecified, uncomplicated
CPT/HCPCS: 99214

== ENCOUNTER 2023-07-22 11:25 | Outpatient (AMB) | payer MEDICARE, SELFPAY ==
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
== END 2023-07-22 13:05 | disposition home or self-care (01) ==
LOC: HO.HMGH 11:26
PROVIDERS: PCP Internal Medicine; Visit Provider Internal Medicine
DX: F43.10 Post-traumatic stress disorder, unspecified (principal); F32.A Depression, unspecified
CPT/HCPCS: 99442

== ENCOUNTER 2023-09-15 13:14 | Outpatient (AMB) | payer MEDICARE, SELFPAY ==
--- NOTE | 2023-09-15 13:15 | MHC.PC.OV ---
Vital Signs 09/15/23 13:21 Height 6 ft Weight 181 lb 4 oz BMI 24.6 BP 118/56 L Blood Pressure Location Lt brachial Position Sitting Respiration 16 Pulse 70 Pulse Source Pulse Oximeter Pulse Oximetry (%) 97 Oxygen Delivery Method Room Air Intake Visit Reasons: Left eye Cataracts -09/16/23 Intake Note: Patient is here for a Pre-op for Right eye Cataracts surgery scheduled with Dr. Swift on 09/16/23, . 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 Accompanied by: Self / Same As Patient Allergies No Known Allergies [No Known Allergies*] Allergy (Verified 09/15/23 14:18) Medication List - Last Reconciled 09/15/23 by Monroe Boswell MD atropine 1% drps ophthalmic (eye) bisacodyl (Dulcolax (bisacodyl)) 20 mg (4 x 5 mg) PO ONCE 1 day cholecalciferol (vitamin D3) 50 mcg PO DAILY mecobalamin (vitamin B12) 1,000 mcg PO DAILY 90 days oxycodone-acetaminophen 10-325 mg 1 tab PO .3 to 4 times a day PRN 28 days polyethylene glycol 3350 (Miralax) 238 grams PO ONCE prednisolone acetate 1% 1 drp ophthalmic (eye) BID sildenafil 50 mg PO DAILY PRN terazosin 2 mg PO DAILY 90 days Tobacco use date assessed: 07/22/23 Fall risk assessment: No Falls in past year Last assessed Fall Risk: 09/15/23 Dental Screening Dental Screen Date: 07/22/23 HPI Left eye Cataracts -09/16/23 HPI Details Patient comes in today at the request of Dr. Miracle Swift for a preoperative medical examination for clearance for surgery He is scheduled for cataract extraction/phacoemulsification with IOL of the right eye under MAC tomorrow, 09/16/2023 Patient states that he currently feels okay He denies any headaches or dizziness Denies any chest pains, no SOB No nausea/vomiting, no abdominal pain No change in bowel habits noted States that he needs a couple of his Rx refilled PFSH Medical History Vitamin B12 deficiency Osteoarthritis of knees, bilateral Overweight (BMI 25.0-29.9) Smoker Erectile dysfunction Chronic left shoulder pain Vitamin D deficiency Benign prostatic hyperplasia Impaired fasting glucose Osteoarthritis of knee Dyslipidemia Surgical History Hx of appendectomy No pertinent past surgical history Family History Father CVD (cardiovascular disease) Mother Medical history unknown Social History Housing: House Alcohol intake: never Patient Tobacco Use Status: Current everyday Tobacco user Tobacco use type: Cigarette Cigarette Packs Per Day: 0.5 Cigarettes Per Day: 10 e-Cigarette/Vaping Use: Never Used Second Hand Smoke Exposure: Yes service: No Current occupational status: employed and retired 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 Erick Gurrola, Genie New, Ector Rosas and colleagues, with an educational neo from [employer]. Review of Systems Const Reports difficulty sleeping, Denies fatigue, Denies fever(s) and Denies headache(s) Eyes Reports blurry vision (in the right eye) ENT Denies dysphagia, Denies dizziness, Denies otalgia, Denies headache(s), Denies neck pain, Denies odynophagia and Denies sore throat Card Denies chest pain, Denies rapid heart rate, Denies irregular heart rhythm, Denies palpitations and Denies dyspnea Resp Denies chest congestion, Denies cough and Denies dyspnea GI Denies abdominal pain, Denies constipation, Denies dysphagia, Denies diarrhea, Denies nausea, Denies odynophagia and Denies vomiting Denies dysuria, Denies nocturia (improved with Terazosin) and Denies urinary frequency Musc Denies back pain, Reports arthralgias (in both knees (chronic); in the left shoulder) and Denies neck pain Skin/Breast Denies rash Neuro Denies dizziness, Denies headache(s) and Denies paresthesias Psych Reports anxiety and Denies suicidal ideation Endo Denies fatigue and Denies palpitations Physical exam (Primary Care) Vital Signs: Last Vital Signs Pulse 70 09/15/23 13:21 Resp 16 09/15/23 13:21 BP 118/56 L 09/15/23 13:21 Pulse Ox 97 09/15/23 13:21 Oxygen Delivery Method Room Air 09/15/23 13:21 BMI result Body Mass Index 24.6 Tobacco/Smoking Status: Tobacco use Status Tobacco use date assessed 07/22/23 09/15/23 13:15 Patient Tobacco Use Status Current everyday Tobacco 09/15/23 13:15 Tobacco use type Cigarette 09/15/23 13:15 e-Cigarette/Vaping Use Never Used 09/15/23 13:15 Thrive Assessment: Date of Thrive Assessment Date Thrive assessed 07/22/23 09/15/23 13:15 Const General: no acute distress and alert HENMT Throat: Yes posterior oropharynx normal and Yes tonsils normal (no TP congestion) Neck Neck: Yes no lymphadenopathy and Yes supple Thyroid: Thyroid normal Resp Auscultation: clear to auscultation bilaterally, no rales and no wheezes Cardio Rate: regular rate Rhythm: regular rhythm Heart sounds: no murmurs GI Palpation (GI): Soft to palpation and nontender Auscultation: normal bowel sounds General: Yes no CVA tenderness Back/Spine/Pelvis Back: no CVA tenderness Thoracic/Lumbar Spine: No lumbar spinal tenderness Skin Rashes: no rashes Extrem General: Yes no clubbing, cyanosis or edema Left upper extremity: shoulder/upper arm Details: tenderness Location: of the A-C joint and normal ROM Right lower extremity: knee Details: tenderness; no swelling Left lower extremity: knee Details: tenderness; no swelling Assessment and Plan Assessment & Plan (1) Preoperative examination: Code(s): Z01.818 - Encounter for other preprocedural examination Plan: Patient presents with acceptable risks for planned low cardiac risk procedure He currently does not appear to have any medical contraindication for the proposed surgery as he has no significant cardiac history (2) Cataract of right eye: Code(s): H26.9 - Unspecified cataract Qualifiers: Cataract type: unspecified Qualified Code(s): H26.9 - Unspecified cataract Plan: He is scheduled for cataract extraction/phacoemulsification with IOL of the right eye under MAC tomorrow, 09/16/2023, with Dr. Miracle Swift (3) Dyslipidemia: Code(s): E78.5 - Hyperlipidemia, unspecified Plan: Reinforced low cholesterol diet His fasting lipids when last checked in January 2023 were within normal range/at or near goal (4) Osteoarthritis of knees, bilateral: Code(s): M17.0 - Bilateral primary osteoarthritis of knee Qualifiers: Osteoarthritis type: primary Qualified Code(s): M17.0 - Bilateral primary osteoarthritis of knee Plan: Continue Ibuprofen 800 mg TID PRN and Oxycodone-Acetaminophen 10-325 mg 1 tablet 3 to 4 times a day as needed for increased pain (Rx refilled) Follow up with orthopedics as scheduled He is reminded NOT to take his Ibuprofen until his surgery is completed (5) Chronic left shoulder pain: Code(s): M25.512 - Pain in left shoulder; G89.29 - Other chronic pain Plan: States that his shoulder pain has been adequately controlled/managed with cortisone injections from orthopedics every few months when needed Follow up with orthopedics as scheduled (6) Impaired fasting glucose: Code(s): R73.01 - Impaired fasting glucose Plan: Improved / resolved as both his HgbA1c (5.4%) and FBS (92 mg/dl) were normal on his labs done back in January 2023 Reinforced low calorie/low carb diet (7) Vitamin D deficiency: Code(s): E55.9 - Vitamin D deficiency, unspecified Plan: Continue Vitamin D3 2000 units QD (8) Vitamin B12 deficiency: Code(s): E53.8 - Deficiency of other specified B group vitamins Plan: Continue Vitamin B12 1000 mcg QD (9) Benign prostatic hyperplasia: Comment: S/P laser prostatectomy Code(s): N40.0 - Benign prostatic hyperplasia without lower urinary tract symptoms Qualifiers: Lower urinary tract symptom presence: symptoms present Lower urinary tract symptom detail: urinary frequency Qualified Code(s): N40.1 - Benign prostatic hyperplasia with lower urinary tract symptoms; R35.0 - Frequency of micturition Plan: Continue Terazosin 2 mg Q HS His serum PSA level remained mostly unchanged from previous at 3.68 on his most recent labs Follow up with urology as scheduled (10) Erectile dysfunction: Code(s): N52.9 - Male erectile dysfunction, unspecified Qualifiers: Erectile dysfunction type: unspecified Qualified Code(s): N52.9 - Male erectile dysfunction, unspecified Plan: Continue Sildenafil 50 mg PRN as instructed - Rx refilled per request (11) Smoker: Code(s): F17.200 - Nicotine dependence, unspecified, uncomplicated Plan: Counseled again on smoking cessation Plan Patient currently appears medically optimized and has no medical contraindications to undergo right eye surgery as planned - he is MEDICALLY CLEARED for proposed cataract surgery of the right eye under MAC with Dr. Swift tomorrow Follow up in 4 months Medications: Refilled oxycodone-acetaminophen 10-325 mg 1 tab PO .3 to 4 times a day 28 days PRN 112 tabs 0RF pain sildenafil administer 30 minutes to 4 hours before activity 50 mg PO DAILY PRN 6 tabs 0RF sexual activity Coding Level of Care Code Est Pt Level 4 (62712) Diagnoses Preoperative examination Z01.818 Cataract of right eye, unspecified cataract type H26.9 Cataract type: unspecified Dyslipidemia E78.5 Primary osteoarthritis of both knees M17.0 Osteoarthritis type: primary Chronic left shoulder pain M25.512; G89.29 Impaired fasting glucose R73.01 Vitamin D deficiency E55.9 Vitamin B12 deficiency E53.8 Benign prostatic hyperplasia with urinary frequency N40.1; R35.0 Lower urinary tract symptom presence: symptoms present Lower urinary tract symptom detail: urinary frequency Erectile dysfunction, unspecified erectile dysfunction type N52.9 Erectile dysfunction type: unspecified Smoker F17.200
[2023-09-15 13:21] VITALS: BP 118/56; PULSE 70; RESP 16; O2SAT 97; BMI 24.6
== END 2023-09-15 14:29 | disposition home or self-care (01) ==
PROVIDERS: PCP Internal Medicine; Visit Provider Internal Medicine
DX: Z01.818 Encounter for other preprocedural examination (principal); H26.9 Unspecified cataract; E78.5 Hyperlipidemia, unspecified; M17.0 Bilateral primary osteoarthritis of knee; M25.512 Pain in left shoulder; G89.29 Other chronic pain; R73.01 Impaired fasting glucose; E55.9 Vitamin D deficiency, unspecified; E53.8 Deficiency of other specified B group vitamins; N40.1 Benign prostatic hyperplasia with lower urinary tract symptoms; R35.0 Frequency of micturition; N52.9 Male erectile dysfunction, unspecified; F17.200 Nicotine dependence, unspecified, uncomplicated
CPT/HCPCS: 99214

== ENCOUNTER 2023-12-30 12:32 | Outpatient (REF) | payer MEDICARE, SELFPAY ==
--- NOTE | ~2023-12-30 | US_ITS ---
EXAMINATION: US EXTRACRANIAL CAROTID DUPLEX, BILATERAL CLINICAL INFORMATION: Occlusion and stenosis of the carotid arteries COMPARISON: None available. TECHNIQUE: Real-time ultrasound and Doppler techniques (integrating B-mode 2-D vascular images, Doppler spectral analysis and color-flow Doppler imaging) were utilized to interrogate the extracranial carotid arteries, the vertebral arteries and proximal subclavian arteries bilaterally. The degree of stenosis is determined by criteria similar to NASCET. FINDINGS: Right Side: 1. There is no significant atherosclerotic plaque seen in the bifurcation/proximal ICA region. 2. The common carotid artery PSV proximally is 82 cm/s and distally 82 cm/s. 3. The proximal internal carotid artery velocities are 83 cm/s systolic and 35 cm/s diastolic. 4. The proximal external carotid artery PSV is 77 cm/s. 5. The vertebral artery shows antegrade flow. 6. The subclavian artery waveforms are normal. Left Side: 1. There is no significant atherosclerotic plaque seen in the bifurcation/proximal ICA region. 2. The common carotid artery PSV proximally is 126 cm/s and distally 73 cm/s. 3. The proximal internal carotid artery velocities are 58 cm/s systolic and 23 cm/s diastolic. 4. The proximal external carotid artery PSV is 136 cm/s. 5. The vertebral artery shows antegrade flow. 6. The subclavian artery waveforms are normal. US/US carotid duplex BI IMPRESSION: 1. RIGHT: Normal right internal carotid artery without atherosclerotic plaque or hemodynamically significant stenosis. 2. LEFT: Normal left internal carotid artery without atherosclerotic plaque or hemodynamically significant stenosis.
[2023-12-30 13:08] LABS: Eosinophils Absolute Auto 0.1 X10*3/uL (0.0-0.4); Eosinophils Percent Auto 2.4 % (0-4); Hematocrit 36.1 % (42.0-52.0); Hemoglobin 12.6 g/dl (14.0-18.0); Imm Gran Abs Auto 0.01 X10*3/uL (0.00-0.03); Imm Gran Pct Auto 0.2 % (0.0-0.4); Lymphocytes Absolute Auto 2.1 X10*3/uL (1.2-4.9); MANUAL DIFF FLAG SCAN; Mean Corpuscular HGB Conc 34.9 g/dl (31.0-36.0); Mean Corpuscular Hemoglobin 34.4 pg (27.0-33.0); Mean Corpuscular Volume 98.6 fL (80.0-98.0); Monocytes Absolute Auto 0.1 X10*3/uL (0.1-1.2); Monocytes Percent Auto 2.9 % (2-11); Neutrophils Absolute Auto 1.8 x10*3/uL (2.0-8.3); Neutrophils Percent Auto 43.5 % (45-73); Platelet Count 143 X10*3/uL (160-400); Red Blood Count 3.66 X10*6/uL (4.60-5.80); Red Cell Distribution Width 12.8 % (11.0-16.0); SCAN SMEAR FLAG 1; White Blood Count 4.1 X10*3/uL (4.8-10.8)
[2023-12-30 13:10] LABS: Appearance Urine Clear; Color Urine Dark Yellow; Glucose Urine UA Negative (Negative); Leukocyte Esterase Urine Negative (Negative); Nitrite Urine Negative (Negative); PH 5.5 (5.0-9.0); Specific Gravity - Urine >= 1.030 (1.005-1.025); Urine Blood Negative (Negative); Urine Ketones Trace mg/dL (Negative); Urine Protein Trace mg/dL (Neg-Trace)
[2023-12-30 13:19] LABS: Estimated Average Glucose 105 mg/dL; Hemoglobin A1c % 5.3 % (<6.0)
[2023-12-30 13:43] LABS: Alanine Aminotransferase 18 U/L (0-40); Albumin Level 4.3 g/dL (3.5-5.0); Alkaline Phosphatase 66 U/L (39-117); Anion Gap 10 (12-20); Aspartate Amino Transferase 16 U/L (5-37); Bilirubin Total 0.7 mg/dL (0.0-1.0); Blood Urea Nitrogen 19 mg/dL (9-16); Calcium 9.5 mg/dL (8.4-10.2); Carbon Dioxide 27 mmol/L (22-29); Chloride 111 mmol/L (96-108); Cholesterol 168 mg/dL (<200); Estimated Glomerular Filt Rate > 60; Glucose Fasting 99 mg/dL (60-99); HDL Cholesterol 47 mg/dL (>40); LDL Cholesterol Calculated 111 mg/dL (<100); Potassium 3.7 mmol/L (3.3-5.1); Sodium 144 mmol/L (135-145); Total Protein 6.5 g/dL (6.5-8.0); Triglycerides 52 mg/dL (<150)
[2023-12-30 13:44] LABS: SLIDE REVIEW VERIFIED
[2023-12-30 14:00] LABS: TSH reflex Free T4 1.21 uIU/mL (0.32-4.0); Vitamin D 25-OH Total 31.8 ng/mL (>30)
== END 2023-12-30 12:33 | disposition home or self-care (01) ==
LOC: HO.US 12:32
PROVIDERS: PCP Internal Medicine; Visit Provider Internal Medicine
DX: I65.29 Occlusion and stenosis of unspecified carotid artery (principal); R73.9 Hyperglycemia, unspecified; E78.00 Pure hypercholesterolemia, unspecified; R30.0 Dysuria; D64.9 Anemia, unspecified; E55.9 Vitamin D deficiency, unspecified
CPT/HCPCS: 36415; 80053; 80061; 81003; 82306; 83036; 84443; 85025; 93880

== ENCOUNTER 2024-01-28 15:16 | Outpatient (AMB) | payer MEDICARE, SELFPAY ==
[2024-01-28 15:19] VITALS: BP 124/76; PULSE 58; O2SAT 96; BMI 24.3
--- NOTE | 2024-01-28 15:19 | MHC.PC.OV ---
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 Required: No Accompanied by: Self / Same As Patient Allergies No Known Allergies [No Known Allergies*] Allergy (Verified 01/28/24 15:37) Medication List - Last Reconciled 01/28/24 by Monroe Boswell MD atropine 1% drps ophthalmic (eye) bisacodyl (Dulcolax (bisacodyl)) 20 mg (4 x 5 mg) PO ONCE 1 day cholecalciferol (vitamin D3) 50 mcg PO DAILY mecobalamin (vitamin B12) 1,000 mcg PO DAILY 90 days oxycodone-acetaminophen 10-325 mg 1 tab PO .3 to 4 times a day PRN 28 days polyethylene glycol 3350 (Miralax) 238 grams PO ONCE prednisolone acetate 1% 1 drp ophthalmic (eye) BID sildenafil 50 mg PO DAILY PRN terazosin 2 mg PO DAILY 90 days Tobacco use date assessed: 01/28/24 Fall risk assessment: No Falls in past year Last assessed Fall Risk: 01/28/24 Dental Screening Dental Screen Date: 01/28/24 Did you have a dental visit in the last 12 months?: No Did you have a dental problem in the last 6 months where you did not have access to dental care?: No Was dental information given to patient?: No HPI [facility] f/u HPI Details Patient comes in today for his follow up visit States that he feels okay He denies any headaches or dizziness Denies any chest pains, no SOB No nausea/vomiting, no abdominal pain No change in bowel habits noted States that his chronic joint pains remain adequately controlled on his current medications States that Sildenafil has worked better for his ED than his previous Tadalafil and needs his Rx refilled He had his follow up labs done a few weeks ago - to discuss his results [facility] Medical History Vitamin B12 deficiency Osteoarthritis of knees, bilateral Overweight (BMI 25.0-29.9) Smoker Erectile dysfunction Chronic left shoulder pain Vitamin D deficiency Benign prostatic hyperplasia Impaired fasting glucose Osteoarthritis of knee Dyslipidemia Surgical History Hx of appendectomy Family History Father CVD (cardiovascular disease) Mother Medical history unknown Social History Housing: House Alcohol intake: never Patient Tobacco Use Status: Current everyday Tobacco user Tobacco use type: Cigarette Cigarette Packs Per Day: 0.5 Cigarettes Per Day: 10 e-Cigarette/Vaping Use: Never Used Second Hand Smoke Exposure: Yes service: No Current occupational status: employed and retired 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 1. Little interest or pleasure in doing things: more than half the days 2. Feeling down, depressed, or hopeless: not at all 3. Trouble falling or staying asleep, or sleeping too much: nearly every day 4. Feeling tired or having little energy: nearly every day 5. Poor appetite or overeating: not at all 6. Feeling bad about yourself - or that you are a failure or have let yourself or your family down: nearly every day 7. Trouble concentrating on things, such as reading the newspaper or watching television: not at all 8. Moving or speaking so slowly that other people could have noticed. Or the opposite - being so fidgety or restless that you have been moving around a lot more than usual: not at all 9. Thoughts that you would be better off or of hurting yourself in some way: several days Total score: 12 Depression Screening Interpretation: Positive Depression Screening Follow-up: Existing condition and Community Mental Health Worker F/U Depression Screening Done: Yes 79738 - PHQ-9 Billing: Yes Source: Developed by Drs. Erick Gurrola, Genie New, Ector Rosas and colleagues, with an educational neo from [employer]. Thrive Questionnaire Date Thrive assessed: 01/28/24 I am a: Patient What is your living situation today?: I have a steady place to live Within the past 12 months, did the food you bought not last and you didn't have the money to get more?: Never true Within the past 12 months, did you worry whether your food would run out before you got money to buy more?: Never true Do you have trouble paying for medicines?: No Do you have trouble getting transportation to medical appointments?: No Do you have trouble paying your heating and electricity bill?: No Do you have trouble taking care of your child, family member or friend?: No Do you have trouble with day-to-day activities such as bathing, preparing meals, shopping, managing finances, etc.?: No Are you currently unemployed and looking for a job?: No Are you interested in more education?: No Please select the resources that you would like help with: None Currently or been in a relationship where the following occur: No concerns reported THRIVE Score: 0 AUDIT C Alcohol Use Questionnaire (AUDIT-C) 1. How often do you have a drink containing alcohol?: Never 3. How often do you have six or more drinks on one occasion?: Never Total Score: 0 Score Reviewed/Action Taken: Yes YOLI-7 AMB Questionnaire YOLI-7 Date YOLI - 7 assessed: 01/28/24 Feeling nervous, anxious, or on edge: 0 = Not at all Not being able to stop or control worryin = Not at all Worrying too much about different things: 0 = Not at all Trouble relaxin = Not at all Being so restless that it is hard to sit still: 0 = Not at all Becoming easily annoyed or irritable: 0 = Not at all Feeling afraid as if something awful might happen: 0 = Not at all Total YOLI-7 score (0-4 normal; 5-9 mild; 10-14 moderate; 15-21 severe): 0 Source: Developed by Drs. Erick Gurrola, Genie New, Ector Rosas and colleagues, with an educational neo from [employer]. Review of Systems Const Reports difficulty sleeping, Denies fatigue, Denies fever(s) and Denies headache(s) ENT Denies dysphagia, Denies dizziness, Denies headache(s), Denies neck pain, Denies odynophagia and Denies sore throat Card Denies chest pain, Denies rapid heart rate, Denies irregular heart rhythm, Denies palpitations and Denies dyspnea Resp Denies chest congestion, Denies cough, Denies dyspnea and Denies wheezing GI Denies abdominal pain, Denies constipation, Denies dysphagia, Denies diarrhea, Denies nausea, Denies odynophagia and Denies vomiting Reports erectile dysfunction, Denies dysuria, Denies nocturia (improved with Terazosin) and Denies urinary frequency Musc Denies back pain, Reports arthralgias (in both knees (chronic); left shoulder) and Denies neck pain Skin/Breast Denies rash Neuro Denies dizziness, Denies headache(s) and Denies paresthesias Psych Reports anxiety (better controlled lately) Endo Denies fatigue and Denies palpitations Aller/Immun Denies wheezing Physical exam (Primary Care) Vital Signs: Last Vital Signs Pulse 58 01/28/24 15:19 BP 124/76 01/28/24 15:19 Pulse Ox 96 01/28/24 15:19 Oxygen Delivery Method Room Air 01/28/24 15:19 BMI result Body Mass Index 24.3 Tobacco/Smoking Status: Tobacco use Status Tobacco use date assessed 01/28/24 01/28/24 15:27 Patient Tobacco Use Status Current everyday Tobacco 01/28/24 15:27 Tobacco use type Cigarette 01/28/24 15:27 e-Cigarette/Vaping Use Never Used 01/28/24 15:27 PHQ-9: PHQ-9 Score PHQ-9: Total score 12 01/28/24 15:27 Depression Screening Interpretation: Positive Depression Screening Follow-up: Existing condition and Community Mental Health Worker F/U Thrive Assessment: Date of Thrive Assessment Date Thrive assessed 01/28/24 01/28/24 15:27 Currently or been in a relationship where the following occur: No concerns reported Const General: no acute distress and alert HENMT Ears: TM's normal bilaterally and EAC's normal Throat: Yes posterior oropharynx normal and Yes tonsils normal (no TP congestion) Neck Neck: Yes no lymphadenopathy and Yes supple Thyroid: Thyroid normal Resp Auscultation: clear to auscultation bilaterally, no rales and no wheezes Cardio Rate: regular rate Rhythm: regular rhythm Heart sounds: no murmurs GI Palpation (GI): Soft to palpation and nontender Auscultation: normal bowel sounds General: Yes no CVA tenderness Back/Spine/Pelvis Back: no CVA tenderness Thoracic/Lumbar Spine: No lumbar spinal tenderness Skin Rashes: no rashes Extrem General: Yes no clubbing, cyanosis or edema Left upper extremity: shoulder/upper arm Details: tenderness Location: of the A-C joint and normal ROM Right lower extremity: knee Details: tenderness; no swelling Left lower extremity: knee Details: tenderness; no swelling Results Reviewed Results Reviewed: Laboratory Tests 12/30/23 12/30/23 12:37 12:45 WBC 4.1 L Hgb 12.6 L Hct 36.1 L Plt Count 143 L Sodium 144 Potassium 3.7 Creatinine 0.77 Estimated GFR > 60 Fasting Glucose 99 Hemoglobin A1c % 5.3 Calcium 9.5 AST 16 ALT 18 Triglycerides 52 Cholesterol 168 LDL Cholesterol, Calc 111 H HDL Cholesterol 47 25-OH Vitamin D Total 31.8 TSH 1.21 Ur Specific Prosser >= 1.030 H Urine Protein Trace Urine Glucose (UA) Negative Urine Blood Negative Urine Nitrite Negative Ur Leukocyte Esterase Negative Assessment and Plan Assessment & Plan (1) Fatigue: Code(s): R53.83 - Other fatigue Qualifiers: Fatigue type: unspecified Qualified Code(s): R53.83 - Other fatigue Plan: Have discussed previously with patient that his increasing fatigue is likely multifactorial, including the fact that he is on opioid Rx on a chronic basis, as well as his difficulty sleeping through the night due to his prostate issues As he is concerned about the possibility of sleep apnea, we have referred him to Sleep Medicine for further evaluation and management - states that he had to cancel his appt recently and he is now rescheduled to be seen for initial visit by sleep medicine on 04/26/2024 (2) Daytime somnolence: Code(s): R40.0 - Somnolence Plan: He has been referred to Sleep Medicine for further evaluation and to assess for sleep apnea - is scheduled to be seen now on 04/26/2024 (3) Dyslipidemia: Code(s): E78.5 - Hyperlipidemia, unspecified Plan: Results of his labs done a few weeks ago reviewed and discussed with patient - is advised that his cholesterol levels are still within normal range but they have increased from last year (January 2023) Reinforced low cholesterol diet Will recheck his labs and fasting lipids in 4 months for follow up (4) Mild chronic anemia: Code(s): D64.9 - Anemia, unspecified Plan: Patient is advised that he continues to present with mild anemia on his recent follow up labs He has never had a screening colonoscopy done in the past (by personal choice) but is now agreeable to get one done to further evaluation his chronic anemia Will refer him to GI for screening colonoscopy (5) Osteoarthritis of knees, bilateral: Code(s): M17.0 - Bilateral primary osteoarthritis of knee Qualifiers: Osteoarthritis type: primary Qualified Code(s): M17.0 - Bilateral primary osteoarthritis of knee Plan: Continue Ibuprofen 800 mg TID PRN and Oxycodone-Acetaminophen 10-325 mg 1 tablet 3 to 4 times a day as needed for increased pain Follow up with orthopedics as scheduled (6) Chronic left shoulder pain: Code(s): M25.512 - Pain in left shoulder; G89.29 - Other chronic pain Plan: States that his shoulder pain has been adequately controlled/managed with cortisone injections from orthopedics every few months when needed Follow up with orthopedics as scheduled (7) Impaired fasting glucose: Code(s): R73.01 - Impaired fasting glucose Plan: Both his HgbA1c (5.3%) and FBS (99 mg/dl) were normal on his labs done a few weeks ago Reinforced low calorie/low carb diet (8) Vitamin D deficiency: Code(s): E55.9 - Vitamin D deficiency, unspecified Plan: Continue Vitamin D3 2000 units QD (9) Vitamin B12 deficiency: Code(s): E53.8 - Deficiency of other specified B group vitamins Plan: Continue Vitamin B12 1000 mcg QD (10) Benign prostatic hyperplasia: Comment: S/P laser prostatectomy Code(s): N40.0 - Benign prostatic hyperplasia without lower urinary tract symptoms Qualifiers: Lower urinary tract symptom presence: symptoms present Lower urinary tract symptom detail: urinary frequency Qualified Code(s): N40.1 - Benign prostatic hyperplasia with lower urinary tract symptoms; R35.0 - Frequency of micturition Plan: Continue Terazosin 2 mg Q HS His serum PSA level remained mostly unchanged from previous at 3.68 when last checked Follow up with urology as scheduled (11) Erectile dysfunction: Code(s): N52.9 - Male erectile dysfunction, unspecified Qualifiers: Erectile dysfunction type: unspecified Qualified Code(s): N52.9 - Male erectile dysfunction, unspecified Plan: Continue Sildenafil 50 mg PRN - Rx refilled (12) Smoker: Code(s): F17.200 - Nicotine dependence, unspecified, uncomplicated Plan: Counseled again on smoking cessation Plan Follow up in 4 months Orders: Orders UA CC w/rflx Micro + Cult 4 Months R30.0 - Dysuria Complete Blood Count Auto Diff 4 Months D64.9 - Anemia, unspecified Lipid Panel 4 Months E78.00 - Pure hypercholesterolemia, unspecified Comprehensive Holiday. Panel Fast 4 Months E78.00 - Pure hypercholesterolemia, unspecified Vitamin D 25-OH Total 4 Months E55.9 - Vitamin D deficiency, unspecified Vitamin B12 and Folate 4 Months E53.8 - Deficiency of other specified B group vitamins Referrals Gastroenterology Referral Z12.11 - Encounter for screening for malignant neoplasm of colon Medications: Refilled sildenafil administer 30 minutes to 4 hours before activity 50 mg PO DAILY PRN 6 tabs 2RF sexual activity Coding Level of Care Code Est Pt Level 4 (88914) Complex EM visit Add On G2211 Diagnoses Fatigue, unspecified type R53.83 Fatigue type: unspecified Daytime somnolence R40.0 Dyslipidemia E78.5 Mild chronic anemia D64.9 Primary osteoarthritis of both knees M17.0 Osteoarthritis type: primary Chronic left shoulder pain M25.512; G89.29 Impaired fasting glucose R73.01 Vitamin D deficiency E55.9 Vitamin B12 deficiency E53.8 Benign prostatic hyperplasia with urinary frequency N40.1; R35.0 Lower urinary tract symptom presence: symptoms present Lower urinary tract symptom detail: urinary frequency Erectile dysfunction, unspecified erectile dysfunction type N52.9 Erectile dysfunction type: unspecified Smoker F17.200
== END 2024-01-28 15:50 | disposition home or self-care (01) ==
PROVIDERS: PCP Internal Medicine; Visit Provider Internal Medicine
DX: R53.83 Other fatigue (principal); R40.0 Somnolence; E78.5 Hyperlipidemia, unspecified; D64.9 Anemia, unspecified; M17.0 Bilateral primary osteoarthritis of knee; M25.512 Pain in left shoulder; G89.29 Other chronic pain; R73.01 Impaired fasting glucose; E55.9 Vitamin D deficiency, unspecified; E53.8 Deficiency of other specified B group vitamins; N40.1 Benign prostatic hyperplasia with lower urinary tract symptoms; R35.0 Frequency of micturition; N52.9 Male erectile dysfunction, unspecified; F17.200 Nicotine dependence, unspecified, uncomplicated
CPT/HCPCS: 99214; G2211

== ENCOUNTER 2024-04-26 12:08 | Outpatient (REF) | payer MEDICARE, SELFPAY ==
[2024-04-26 13:36] LABS: Appearance Urine Clear; Color Urine Orange; Leukocyte Esterase Urine Negative (Negative); UMIC TRIGGER UACC YES; Urine Blood Negative (Negative); Urine Ketones Negative (Negative)
[2024-04-26 13:42] LABS: Bacteria Urine None Seen (None Seen); Hyaline Casts Urine 0-2 /LPF (0-2); RBC Urine 0-2 /HPF (0-2); Squamous Epithelial Cell Urine 0-2 /HPF (0-2); WBC Urine 0-5 /HPF (0-5)
== END 2024-04-26 12:09 | disposition home or self-care (01) ==
LOC: HO.LAB 12:08
PROVIDERS: PCP Internal Medicine; Visit Provider Internal Medicine
DX: R06.83 Snoring (principal); G47.10 Hypersomnia, unspecified; G47.50 Parasomnia, unspecified; W10.8XXA Fall (on) (from) other stairs and steps, initial encounter; R30.0 Dysuria
CPT/HCPCS: 81001; 99202

== ENCOUNTER 2024-04-26 14:18 | Outpatient (AMB) | payer MEDICARE, SELFPAY ==
--- NOTE | 2024-04-26 14:26 | MHC.OFFVIS ---
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: No Accompanied by: Daughter Allergies No Known Allergies [No Known Allergies*] Allergy (Verified 04/26/24 14:28) Medication List - Last Reconciled 04/26/24 by REBECCA Vargas atropine 1% krishna ophthalmic (eye) bisacodyl (Dulcolax (bisacodyl)) 20 mg PO ONCE PRN cholecalciferol (vitamin D3) 50 mcg PO DAILY mecobalamin (vitamin B12) 1,000 mcg PO DAILY 90 days oxycodone-acetaminophen 10-325 mg 1 tab PO .3 to 4 times a day PRN 28 days polyethylene glycol 3350 (Miralax) 238 grams PO ONCE PRN sildenafil 50 mg PO DAILY PRN terazosin 2 mg PO DAILY 90 days HPI Comments Details: 74-yr-old male presents for new in-person patient visit for sleep consultation. Pt is accompanied by his dtrLaura. Patient reports he has had loud snoring even with using breathe-right type nasal strips. Pt also notes he recently moved in with his dtr/dtr's family apporx 5 weeks ago due to his health issues. He notes he had a fall 6 weeks ago, became dizzy and fell down a flight of stairs, was found laying on the floor by his roommate and when he tried to get up, fell back down. He denies LOC, however it is not clear that he did not have LOC. He did not seek medical attention for this. His dtr states that the fall was likely triggered by a COVID-19 inefction, and taking Paxlovid w/ his usual oxycodone dose. Dtr also notes that pt seems more fidgety w/ his hands, gait changes- shuffling, STM difficulties, parasomnias. Pt denies tremor, restlessness, significant memory issues. States writing is scribbly. Sleep history questionnaire: Have you ever been diagnosed with a sleep disorder? No Have you ever had a sleep study in the past? No Have you ever been treated for a sleep disorder? No Do you take medications/supplements for a sleep disorder? No Current sleep symptom questionnaire: Pt reports he easily falls asleep. Pt reports daytime sleepiness, easily falls asleep when inactive. Pt reports snoring, nocturnal gasping. Pt reprots drooling- during the day and night Pt reports endentulous status Pt reports occasional constipation. Scheduled for a routine colonoscopy. Pt reports nocturia, 2 times per night and easily falls back asleep. Pt denies RLS. Pt dtr reports hand movement in sleep, and some hand fidgeting when awake. Pt's dtr reports occasional sleep talking, yelling out in his sleep. Pt reports his memory is not as good as it used to be- some difficulty w/ name recall. 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 Pt endorses family h/o similar sleep s/s- father was a heavy snorer. 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 Usual bedtime is at 6-8pm Usual time to fall asleep 6-8pm Usual wake-up time 4am Usual out of bed time is at 4am Naps: Takes unintentional unscheduled naps Sleep environment: comfortable, cool, quiet Electronic use in bedroom: TV- sleeps w/ TV on and volume low Exercise: Regular exercise: takes a 1/2 mile walk a day Caffeine or other stimulants: 1 cups of coffee per day in am only. [facility] Medical History Vitamin B12 deficiency Osteoarthritis of knees, bilateral Overweight (BMI 25.0-29.9) Smoker Erectile dysfunction Chronic left shoulder pain Vitamin D deficiency Benign prostatic hyperplasia Impaired fasting glucose Osteoarthritis of knee Dyslipidemia Surgical History Hx of appendectomy Family History Father CVD (cardiovascular disease) Mother Medical history unknown Social History Housing: House Alcohol intake: never Patient Tobacco Use Status: Current everyday Tobacco user Tobacco use type: Cigarette Cigarette Packs Per Day: 0.5 Cigarettes Per Day: 10 e-Cigarette/Vaping Use: Never Used Second Hand Smoke Exposure: Yes service: No Current occupational status: employed and retired 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 Cognitive needs: No Hearing needs: No Vision needs: Yes Physical Exam Vital Signs: Last Vital Signs Pulse 61 04/26/24 14:28 BP 114/60 04/26/24 14:28 Pulse Ox 97 04/26/24 14:28 Oxygen Delivery Method Room Air 04/26/24 14:28 BMI result Body Mass Index 24.9 Const General: no acute distress Orientation/consciousness: patient oriented x3 HEENT Other: Mallampati stage 4 Resp Effort & Inspection: normal respiratory effort and able to speak in complete sentences Auscultation: clear to auscultation bilaterally Cardio Rate: regular rate Rhythm: regular rhythm Neuro Other: Soft voice Hand fidgeting with edge of shirt at rest. BUE mild rigidity Stands slowly, slight stoop, right shoulder drooped, decreased arm swing w/ right hand finger movements, shorter steps w/ feet scuffing the floor. General: patient oriented x3 Psych Mental Status: mental status grossly normal Speech and movement: Clear speech present Attitude: cooperative Assessment & Plan Assessment & Plan (1) Snoring: Code(s): R06.83 - Snoring Category: Medical (2) Hypersomnia: Code(s): G47.10 - Hypersomnia, unspecified Category: Medical (3) Parasomnia: Code(s): G47.50 - Parasomnia, unspecified Category: Medical (4) Fall down stairs: Code(s): W10.8XXA - Fall (on) (from) other stairs and steps, initial encounter Category: Medical Plan Pt is advised to undergo in-lab sleep study to assess for sleep apnea. Upon review of sleep study results, will f/u with pt to discuss results and appropriate treatment options. Pt advised to undergo brain MRI w/o to assess for intracranial process s/p fall down a flight of stairs in setting of gait changes, STM loss, parasomnias. Alprazolam prior to MRI. Monitor clinical s/s of movement d/o- drooling, fidgeting, ? hallucinations, parasomnias, STM difficulties, gait changes. Pt seen in c/w Dr Perlita Foley . Orders: Orders RT PSG in-lab sleep study Today REBECCA Vargas G47.10 - Hypersomnia, unspecified, G47.50 - Parasomnia, unspecified, R06.83 - Snoring MR head/brain wo con Today REBECCA Vargas G47.50 - Parasomnia, unspecified, R26.9 - Unspecified abnormalities of gait and mobility, W10.8XXA - Fall (on) (from) other stairs and steps, initial encounter Medications: New alprazolam 0.25 mg orally 1 tab 30 minutes prior to MRI, may repeat x's 1; 1 day 2 tabs 0RF REBECCA Vargas Changed From bisacodyl (Dulcolax (bisacodyl)) take 4 tabs at noon the day before your colonoscopy 20 mg (4 x 5 mg) PO ONCE 1 day 4 tabs 0RF constipation Z12.11 - Encounter for screening for malignant neoplasm of colon To bisacodyl (Dulcolax (bisacodyl)) take 4 tabs at noon the day before your colonoscopy 20 mg PO ONCE PRN constipation Z12.11 - Encounter for screening for malignant neoplasm of colon REBECCA Short-BC From polyethylene glycol 3350 (Miralax) As directed by gastroenterology department at [facility] 238 grams PO ONCE 238 grams 0RF Z12.11 - Encounter for screening for malignant neoplasm of colon To polyethylene glycol 3350 (Miralax) As directed by gastroenterology department at [facility] 238 grams PO ONCE PRN Z12.11 - Encounter for screening for malignant neoplasm of colon REBECCA Short-BC Coding Level of Care Code New Pt Level 4 (16470) Diagnoses Snoring R06.83 Hypersomnia G47.10 Parasomnia G47.50 Fall down stairs W10.8XXA [place] Sleepiness Scale Questions Sitting and reading: high chance of dozing Watching TV: high chance of dozing Sitting inactive in a theater, movie etc.: high chance of dozing As a passenger in a car for an hour without break: high chance of dozing Lying down in the afternoon when circumstances permit: high chance of dozing Sitting and talking to someone: would never doze Sitting quietly after lunch without alcohol: high chance of dozing In a car, while stopped for a few minutes in the traffic: would never doze ESS < 10: normal, ESS > 12: pathologic: 18
[2024-04-26 14:28] VITALS: BP 114/60; PULSE 61; O2SAT 97; BMI 24.9
== END 2024-04-26 15:16 | disposition home or self-care (01) ==
PROVIDERS: PCP Internal Medicine; Visit Provider Nurse Practitioner Family
DX: R06.83 Snoring (principal); G47.10 Hypersomnia, unspecified; G47.50 Parasomnia, unspecified; W10.8XXA Fall (on) (from) other stairs and steps, initial encounter
CPT/HCPCS: 99204

== ENCOUNTER 2024-05-22 12:39 | Outpatient (AMB) | payer MEDICARE, SELFPAY ==
[2024-05-22 12:41] VITALS: BP 122/80; PULSE 47; O2SAT 98; BMI 25.3
--- NOTE | 2024-05-22 12:41 | MHC.PC.OV ---
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 Required: No Accompanied by: Daughter Allergies No Known Allergies [No Known Allergies*] Allergy (Verified 05/22/24 15:22) Medication List - Last Reconciled 05/22/24 by Monroe Boswell MD alprazolam 0.25 mg orally 1 tab 30 minutes prior to MRI, september repeat x's 1; 1 day atropine 1% drps ophthalmic (eye) bisacodyl (Dulcolax (bisacodyl)) 20 mg PO ONCE PRN cholecalciferol (vitamin D3) 50 mcg PO DAILY mecobalamin (vitamin B12) 1,000 mcg PO DAILY 90 days oxycodone-acetaminophen 10-325 mg 1 tab PO .3 to 4 times a day PRN 28 days polyethylene glycol 3350 (Miralax) 238 grams PO ONCE PRN sildenafil 50 mg PO DAILY PRN terazosin 2 mg PO DAILY 90 days Tobacco use date assessed: 05/22/24 Fall risk assessment: 2 + Falls in past year Last assessed Fall Risk: 05/22/24 Dental Screening Dental Screen Date: 05/22/24 Did you have a dental visit in the last 12 months?: No Did you have a dental problem in the last 6 months where you did not have access to dental care?: No Was dental information given to patient?: No HPI 4 mo f/u HPI Details Patient comes in today for his follow up visit - is accompanied by his daughter today (Laura) Patient states that he is no longer driving due to problems with his vision States that he has very limited vision in his right eye - he is currently still seeing a retina specialist and needs his referral [facility] renewed He first suffered a retinal detachment in his right eye earlier this year and he underwent surgery to reattach his retina He also had cataract surgery done but his vision did not improve much with surgery as he supposedly had an increased growth of blood vessels and he is currently receiving injections into his eye to help control this Review of his report from the retina surgeon indicated central retinal vein occlusion as well as neovascular glaucoma as to what he currently has He is scheduled for laser surgery to his eye next month to attempt salvaging some of his vision Patient also admits to experiencing on and off visual hallucinations for a few months now, often seeing people that are not there His daughter has mentioned that patient has also been declining cognitively for the past couple of years and has had episodes of confusion and agitation at times in addition to increasing forgetfulness and states that these are mostly the reasons that she is no longer allowing patient to drive Patient denies any headaches or dizziness Denies any chest pains, no increased SOB No nausea/vomiting, no abdominal pain No change in bowel habits noted He was seen by Sleep Medicine last month and is being sent for MRI of the brain for further evaluation - this is scheduled for 06/11/2024 He also has an in-lab sleep study scheduled for 06/04/2024 to help assess him for sleep apnea He was not able to get his follow up labs done prior to his appointment today [facility] Medical History (Updated 05/22/24 @ 18:56 by Monroe Boswell MD) 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) Vitamin B12 deficiency Osteoarthritis of knees, bilateral Overweight (BMI 25.0-29.9) Smoker Erectile dysfunction Chronic left shoulder pain Vitamin D deficiency Benign prostatic hyperplasia Impaired fasting glucose Osteoarthritis of knee Dyslipidemia Surgical History Hx of appendectomy Family History Father CVD (cardiovascular disease) Mother Medical history unknown Social History Housing: House Alcohol intake: never Patient Tobacco Use Status: Current everyday Tobacco user Tobacco use type: Cigarette Cigarette Packs Per Day: 0.5 Cigarettes Per Day: 10 e-Cigarette/Vaping Use: Never Used Second Hand Smoke Exposure: Yes service: No Current occupational status: employed and retired 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 1. Little interest or pleasure in doing things: more than half the days 2. Feeling down, depressed, or hopeless: not at all 3. Trouble falling or staying asleep, or sleeping too much: nearly every day 4. Feeling tired or having little energy: nearly every day 5. Poor appetite or overeating: not at all 6. Feeling bad about yourself - or that you are a failure or have let yourself or your family down: nearly every day 7. Trouble concentrating on things, such as reading the newspaper or watching television: not at all 8. Moving or speaking so slowly that other people could have noticed. Or the opposite - being so fidgety or restless that you have been moving around a lot more than usual: not at all 9. Thoughts that you would be better off or of hurting yourself in some way: several days Total score: 12 Depression Screening Interpretation: Positive Depression Screening Follow-up: Existing condition and Community Mental Health Worker F/U Depression Screening Done: Yes 43186 - PHQ-9 Billing: Yes Source: Developed by Drs. Erick Gurrola, Genie New, Ector Rosas and colleagues, with an educational neo from [employer] Thrive Questionnaire Date Thrive assessed: 05/22/24 I am a: Patient What is your living situation today?: I have a steady place to live Within the past 12 months, did the food you bought not last and you didn't have the money to get more?: Never true Within the past 12 months, did you worry whether your food would run out before you got money to buy more?: Never true Do you have trouble paying for medicines?: No Do you have trouble getting transportation to medical appointments?: No Do you have trouble paying your heating and electricity bill?: No Do you have trouble taking care of your child, family member or friend?: No Do you have trouble with day-to-day activities such as bathing, preparing meals, shopping, managing finances, etc.?: No Are you currently unemployed and looking for a job?: No Are you interested in more education?: No Please select the resources that you would like help with: None Currently or been in a relationship where the following occur: No concerns reported THRIVE Score: 0 AUDIT C Alcohol Use Questionnaire (AUDIT-C) 1. How often do you have a drink containing alcohol?: Never 3. How often do you have six or more drinks on one occasion?: Never Total Score: 0 Score Reviewed/Action Taken: Yes YOLI-7 AMB Questionnaire YOLI-7 Date YOLI - 7 assessed: 05/22/24 Feeling nervous, anxious, or on edge: 0 = Not at all Not being able to stop or control worryin = Not at all Worrying too much about different things: 0 = Not at all Trouble relaxin = Not at all Being so restless that it is hard to sit still: 0 = Not at all Becoming easily annoyed or irritable: 0 = Not at all Feeling afraid as if something awful might happen: 0 = Not at all Total YOLI-7 score (0-4 normal; 5-9 mild; 10-14 moderate; 15-21 severe): 0 Source: Developed by Drs. Erick Gurrola, Genie New, Ector Rosas and colleagues, with an educational neo from [employer] Review of Systems Const Denies chills, Reports difficulty sleeping, Denies fatigue, Denies fever(s) and Denies headache(s) Eyes Reports blurry vision (in the right eye) ENT Denies dysphagia, Denies dizziness, Denies headache(s), Denies neck pain, Denies odynophagia and Denies sore throat Card Denies chest pain, Denies rapid heart rate, Denies irregular heart rhythm, Denies palpitations and Denies dyspnea Resp Denies chest congestion, Denies cough, Denies dyspnea and Denies wheezing GI Denies abdominal pain, Denies constipation, Denies dysphagia, Denies diarrhea, Denies nausea, Denies odynophagia and Denies vomiting Reports erectile dysfunction, Denies dysuria, Denies nocturia (improved with Terazosin) and Denies urinary frequency Musc Denies back pain, Reports arthralgias (in both knees (chronic); left shoulder) and Denies neck pain Skin/Breast Denies rash Neuro Reports behavioral changes (agitation at times), Denies dizziness, Denies headache(s), Reports memory loss (per daughter) and Denies paresthesias Psych Reports anxiety (better controlled lately), Reports behavioral changes (agitation at times), Reports memory loss (per daughter) and Reports visual hallucinations Endo Denies fatigue and Denies palpitations Aller/Immun Denies wheezing Physical exam (Primary Care) Vital Signs: Last Vital Signs Pulse 47 L 05/22/24 12:41 BP 122/80 05/22/24 12:41 Pulse Ox 98 05/22/24 12:41 Oxygen Delivery Method Room Air 05/22/24 12:41 BMI result Body Mass Index 25.3 Tobacco/Smoking Status: Tobacco use Status Tobacco use date assessed 05/22/24 05/22/24 12:46 Patient Tobacco Use Status Current everyday Tobacco 05/22/24 12:46 Tobacco use type Cigarette 05/22/24 12:46 e-Cigarette/Vaping Use Never Used 05/22/24 12:46 PHQ-9: PHQ-9 Score PHQ-9: Total score 12 05/22/24 17:33 Depression Screening Interpretation: Positive Depression Screening Follow-up: Existing condition and Community Mental Health Worker F/U Thrive Assessment: Date of Thrive Assessment Date Thrive assessed 05/22/24 05/22/24 12:46 Currently or been in a relationship where the following occur: No concerns reported Const General: no acute distress and alert HENMT Ears: TM's normal bilaterally and EAC's normal Throat: Yes posterior oropharynx normal and Yes tonsils normal (no TP congestion) Neck Neck: Yes no meningeal signs, Yes supple and No lymphadenopathy Thyroid: Thyroid normal Resp Auscultation: clear to auscultation bilaterally, no rales and no wheezes Cardio Rate: regular rate Rhythm: regular rhythm Heart sounds: no murmurs GI Palpation (GI): Soft to palpation and nontender Auscultation: normal bowel sounds General: Yes no CVA tenderness Back/Spine/Pelvis Back: no CVA tenderness Thoracic/Lumbar Spine: No lumbar spinal tenderness Skin Rashes: no rashes Neuro Other: (+) on and off confusion - per patient's daughter General: moves all extremities, no meningeal signs, no focal motor deficits and CN's II-XI intact bilaterally Extrem General: Yes no clubbing, cyanosis or edema Left upper extremity: shoulder/upper arm Details: tenderness Location: of the A-C joint and normal ROM Right lower extremity: knee Details: tenderness; no swelling Left lower extremity: knee Details: tenderness; no swelling Coding Level of Care Code Est Pt Level 4 (38837) Diagnoses Fatigue, unspecified type R53.83 Fatigue type: unspecified Dyslipidemia E78.5 Mild chronic anemia D64.9 Primary osteoarthritis of both knees M17.0 Osteoarthritis type: primary Chronic left shoulder pain M25.512; G89.29 Impaired fasting glucose R73.01 Vitamin D deficiency E55.9 Vitamin B12 deficiency E53.8 Retinal detachment, right H33.21 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) H40.50X0; H34.8192 Memory impairment R41.3 Visual hallucinations R44.1 Benign prostatic hyperplasia with urinary frequency N40.1; R35.0 Lower urinary tract symptom detail: urinary frequency Lower urinary tract symptom presence: symptoms present Smoker F17.200 Additional Codes PHQ-9 - 63459 - PHQ-9 Billing: Yes ([id number]) Assessment & Plan Assessment & Plan (1) Fatigue: Code(s): R53.83 - Other fatigue Category: Medical Qualifiers: Fatigue type: unspecified Qualified Code(s): R53.83 - Other fatigue Plan: Have again discussed with patient that his increasing fatigue over the past year is likely multifactorial, including the fact that he is on opioid Rx on a chronic basis, as well as his difficulty sleeping through the night due to his prostate issues He was also referred to Sleep Medicine to assess for the possibility of sleep apnea and he is currently scheduled to have an in-lab sleep study done early next month (2) Dyslipidemia: Code(s): E78.5 - Hyperlipidemia, unspecified Category: Medical Plan: He was not able to get his follow up labs done prior to his appointment today and he is advised to try to get these done JORGE Reinforced low cholesterol diet (3) Mild chronic anemia: Code(s): D64.9 - Anemia, unspecified Category: Medical Plan: Patient has been presenting with mild anemia on his follow up labs often over the past year He has never had a screening colonoscopy done in the past (by personal choice) but agreed to get one done to further evaluation his chronic anemia He is now also scheduled to have a screening colonoscopy done early next month (4) Osteoarthritis of knees, bilateral: Code(s): M17.0 - Bilateral primary osteoarthritis of knee Category: Medical Qualifiers: Osteoarthritis type: primary Qualified Code(s): M17.0 - Bilateral primary osteoarthritis of knee Plan: He is on Ibuprofen 800 mg TID PRN and Oxycodone-Acetaminophen 10-325 mg 1 tablet 3 to 4 times a day as needed for increased pain but is currently advised to try cutting back on his Rx, especially his opioid Rx, in light of his recent and ongoing visual hallucinations and per his daughter, some cognitive changes lately Follow up with orthopedics as scheduled (5) Chronic left shoulder pain: Code(s): M25.512 - Pain in left shoulder; G89.29 - Other chronic pain Category: Medical Plan: Patient states that his shoulder pain has been adequately controlled/managed with cortisone injections from orthopedics every few months when needed Follow up with orthopedics as scheduled (6) Impaired fasting glucose: Code(s): R73.01 - Impaired fasting glucose Category: Medical Plan: Both his HgbA1c (5.3%) and FBS (99 mg/dl) were normal when they were previously checked Reinforced low calorie/low carb diet He is instructed to try getting his previously ordered follow up labs done JORGE (7) Vitamin D deficiency: Code(s): E55.9 - Vitamin D deficiency, unspecified Category: Medical Plan: Continue Vitamin D3 2000 units QD (8) Vitamin B12 deficiency: Code(s): E53.8 - Deficiency of other specified B group vitamins Category: Medical Plan: Continue Vitamin B12 1000 mcg QD (9) Retinal detachment, right: Code(s): H33.21 - Serous retinal detachment, right eye Category: Medical Plan: Patient suffered a retinal detachment in his right eye earlier this year S/P surgical repair but he continues to have problems with vision in his right eye Follow up with ophthalmology/retina specialist as scheduled - per request, referral to [facility] renewed (10) 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): Code(s): H40.50X0 - Glaucoma secondary to other eye disorders, unspecified eye, stage unspecified; H34.8192 - Central retinal vein occlusion, unspecified eye, stable Category: Medical Plan: He is currently receiving injections into his right eye from ophthalmology Follow up with ophthalmology as scheduled (11) Memory impairment: Code(s): R41.3 - Other amnesia Category: Medical Plan: Discussed concerns about possibility of cognitive impairment/decline He is currently seeing neurology for further evaluation and management and is scheduled for MRI of the brain for further evaluation in a couple of months Have advised patient's daughter to help patient manage his meds, especially his opioids, and not to let patient handle his meds on his own until his neurologic evaluation is complete and it is determined that he does not have any significant cognitive impairment Have also discussed with patient that we should plan on cutting back on his opioid Rx, especially if he is determined to have some cognitive impairment or condition, as continuing on opioids in these situations can be detrimental to his overall condition (12) Visual hallucinations: Code(s): R44.1 - Visual hallucinations Category: Medical Plan: Discussed possibility of dementia as a source of these hallucinations Due to his current ophthalmic impairment, Chris Bonnet Syndrome is also a likely consideration He is currently scheduled to have a brain MRI done in a couple of months for further evaluation Follow up with neurology as scheduled (13) Benign prostatic hyperplasia: Comment: S/P laser prostatectomy Code(s): N40.0 - Benign prostatic hyperplasia without lower urinary tract symptoms Category: Medical Qualifiers: Lower urinary tract symptom detail: urinary frequency Lower urinary tract symptom presence: symptoms present Qualified Code(s): N40.1 - Benign prostatic hyperplasia with lower urinary tract symptoms; R35.0 - Frequency of micturition Plan: Continue Terazosin 2 mg Q HS Follow up with urology as scheduled (14) Smoker: Code(s): F17.200 - Nicotine dependence, unspecified, uncomplicated Category: Social Hx Plan: Patient is counseled again on complete smoking cessation Plan To return as scheduled in July 2024 for his next annual physical examination Orders: Referrals Ophthalmology Referral H33.21 - Serous retinal detachment, right eye
== END 2024-05-22 13:45 | disposition home or self-care (01) ==
PROVIDERS: PCP Internal Medicine; Visit Provider Internal Medicine
DX: R53.83 Other fatigue (principal); E78.5 Hyperlipidemia, unspecified; D64.9 Anemia, unspecified; H34.8192 Central retinal vein occlusion, unspecified eye, stable; M17.0 Bilateral primary osteoarthritis of knee; M25.512 Pain in left shoulder; G89.29 Other chronic pain; R73.01 Impaired fasting glucose; E55.9 Vitamin D deficiency, unspecified; E53.8 Deficiency of other specified B group vitamins; H33.21 Serous retinal detachment, right eye; H40.50X0 Glaucoma secondary to other eye disorders, unspecified eye, stage unspecified

== ENCOUNTER → 2024-05-22 12:39 | Outpatient (BNVA) | payer MEDICARE, SELFPAY | PROVIDERS: PCP Internal Medicine; Visit Provider Internal Medicine | DX: R53.83 Other fatigue (principal); E78.5 Hyperlipidemia, unspecified; D64.9 Anemia, unspecified; M17.0 Bilateral primary osteoarthritis of knee; M25.512 Pain in left shoulder; G89.29 Other chronic pain; R73.01 Impaired fasting glucose; E55.9 Vitamin D deficiency, unspecified; E53.8 Deficiency of other specified B group vitamins; H33.21 Serous retinal detachment, right eye; H40.50X0 Glaucoma secondary to other eye disorders, unspecified eye, stage unspecified; R41.3 Other amnesia; R44.1 Visual hallucinations; N40.1 Benign prostatic hyperplasia with lower urinary tract symptoms; R35.0 Frequency of micturition; F17.200 Nicotine dependence, unspecified, uncomplicated; Z71.6 Tobacco abuse counseling | CPT/HCPCS: 96127; 99212 ==

== ENCOUNTER → 2024-06-11 09:13 | Outpatient (BNV) | payer MEDICARE, SELFPAY | PROVIDERS: PCP Internal Medicine; Visit Provider Radiology Diagnostic Radiology | DX: R40.0 Somnolence (principal) | CPT/HCPCS: 70551 ==

== ENCOUNTER 2024-06-11 09:15 | Outpatient (REF) | payer MEDICARE, SELFPAY ==
--- NOTE | ~2024-06-11 | MR_ITS ---
EXAMINATION: MR BRAIN WITHOUT IV CONTRAST HISTORY: W10.8XXA - Fall (on) (from) other stairs and steps, initial encounter TECHNIQUE: Sagittal T1, coronal FLAIR, and axial T1, FLAIR, T2, gradient echo, and diffusion weighted MR images of the brain were obtained. COMPARISON: None FINDINGS: There is mild prominence of the ventricular system and cortical sulci, consistent with atrophy. Bacon/white differentiation is normal. There is no mass effect or midline shift. No intra or extra-axial fluid collections are identified. There are no foci of restricted diffusion. Normal vascular flow voids are noted in the basilar and carotid arteries. The visualized paranasal sinuses are clear. MR/MR head/brain wo con IMPRESSION: No acute intracranial abnormality. Electronically signed by: Erick Cruz MD 06/13/2024 08:10 AM [facility] [place]
== END 2024-06-11 09:16 | disposition home or self-care (01) ==
LOC: HO.MRI 09:15
PROVIDERS: PCP Internal Medicine; Visit Provider Nurse Practitioner Family
DX: R26.9 Unspecified abnormalities of gait and mobility (principal); G47.50 Parasomnia, unspecified; W10.8XXD Fall (on) (from) other stairs and steps, subsequent encounter
CPT/HCPCS: 70551

== ENCOUNTER 2024-07-05 09:20 | Outpatient (AMB) | payer MEDICARE, SELFPAY ==
--- NOTE | 2024-07-05 09:22 | MHC.OFFVIS ---
Vital Signs 07/05/24 09:23 Height 6 ft Weight 189 lb BMI 25.6 BP 124/80 Blood Pressure Location Rt brachial Position Sitting Pulse 50 Pulse Source Pulse Oximeter Pulse Oximetry (%) 95 Oxygen Delivery Method Room Air Intake Visit Reasons: Follow up Intake Note: wants to take about medication before taking, also next steps regarding MRI. Allergies No Known Allergies [No Known Allergies*] Allergy (Verified 07/05/24 09:25) HPI Comments Details: 74-yr-old male presents for urgent follow-up of worsening hallucinations.. Pt is accompanied by his dtrLaura. Pt's dtr had called last week with concerns that pt is having increased hallucinations. Patient has not been having signs of active infection. We had placed in an order for Quetiapine, however pt was hesitant to take these d/t risk for side effects- including the black box warning, risk for cataracts. They describe his hallucinations as seeing people in or outside [facility]. He may talk to the people. He may try to bring them food or clothes or tell them to leave. He states that some of the people do talk to him- dtr reinforces that pt is having a back and forth conversation with them. Sometimes when he comes around the corner, they will stop working or leave as they know he will go right through them . Sometimes they moves stuff on him. He continues to have difficulty sleeping. His sleep study is scheduled for later this month. Dtr notes he has had a couple of falls. Is using a cane. He has had issues with retinal detachment since Feb 2023, and underwent cataract surgery August 2023, and has been living with [facility] since fall. He served from [id number], in the [email or web address]. [facility]. 04/26/2025, Initial HPI: 74-yr-old male presents for new in-person patient visit for sleep consultation. Pt is accompanied by his dtrLaura. Patient reports he has had loud snoring even with using breathe-right type nasal strips. Pt also notes he recently moved in with his dtr/dtr's family apporx 5 weeks ago due to his health issues. He notes he had a fall 6 weeks ago, became dizzy and fell down a flight of stairs, was found laying on the floor by his roommate and when he tried to get up, fell back down. He denies LOC, however it is not clear that he did not have LOC. He did not seek medical attention for this. His dtr states that the fall was likely triggered by a COVID-19 inefction, and taking Paxlovid w/ his usual oxycodone dose. Dtr also notes that pt seems more fidgety w/ his hands, gait changes- shuffling, STM difficulties, parasomnias. Pt denies tremor, restlessness, significant memory issues. States writing is scribbly. Sleep history questionnaire: Have you ever been diagnosed with a sleep disorder? No Have you ever had a sleep study in the past? No Have you ever been treated for a sleep disorder? No Do you take medications/supplements for a sleep disorder? No Current sleep symptom questionnaire: Pt reports he easily falls asleep. Pt reports daytime sleepiness, easily falls asleep when inactive. Pt reports snoring, nocturnal gasping. Pt reprots drooling- during the day and night Pt reports endentulous status Pt reports occasional constipation. Scheduled for a routine colonoscopy. Pt reports nocturia, 2 times per night and easily falls back asleep. Pt denies RLS. Pt dtr reports hand movement in sleep, and some hand fidgeting when awake. Pt's dtr reports occasional sleep talking, yelling out in his sleep. Pt reports his memory is not as good as it used to be- some difficulty w/ name recall. 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 Pt endorses family h/o similar sleep s/s- father was a heavy snorer. 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 Usual bedtime is at 6-8pm Usual time to fall asleep 6-8pm Usual wake-up time 4am Usual out of bed time is at 4am Naps: Takes unintentional unscheduled naps Sleep environment: comfortable, cool, quiet Electronic use in bedroom: TV- sleeps w/ TV on and volume low Exercise: Regular exercise: takes a 1/2 mile walk a day Caffeine or other stimulants: 1 cups of coffee per day in am only. 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) Vitamin B12 deficiency Osteoarthritis of knees, bilateral Overweight (BMI 25.0-29.9) Smoker Erectile dysfunction Chronic left shoulder pain Vitamin D deficiency Benign prostatic hyperplasia Impaired fasting glucose Osteoarthritis of knee Dyslipidemia Surgical History Hx of appendectomy Family History Father CVD (cardiovascular disease) Mother Medical history unknown Social History Housing: House Alcohol intake: never Patient Tobacco Use Status: Current everyday Tobacco user Tobacco use type: Cigarette Cigarette Packs Per Day: 0.5 Cigarettes Per Day: 10 e-Cigarette/Vaping Use: Never Used Second Hand Smoke Exposure: Yes service: No Current occupational status: employed and retired 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 No rest or postural tremor. BUE REM, slightly decreased bilaterally. BUE, left greater than right, mild rigidity Fine finger movements, decreased bilaterally, more so on left Foot taps slightly decreased bilaterally. Stands slowly, slight stoop, right shoulder drooped, decreased arm swing w/ right hand finger movements, shorter steps w/ antalgic gait with low floor clearance was obtained. Unsteady with retropulsion during quick turn. General: patient oriented x3 Psych Mental Status: mental status grossly normal Speech and movement: Clear speech present Attitude: cooperative Results Reviewed Results Reviewed: Date of Service: 06/11/24 Procedure(s): MR head/brain wo con COMPARISON: None FINDINGS: There is mild prominence of the ventricular system and cortical sulci, consistent with atrophy. Bacon/white differentiation is normal. There is no mass effect or midline shift. No intra or extra-axial fluid collections are identified. There are no foci of restricted diffusion. Normal vascular flow voids are noted in the basilar and carotid arteries. The visualized paranasal sinuses are clear. IMPRESSION: No acute intracranial abnormality. Assessment & Plan Assessment & Plan (1) Visual hallucinations: Code(s): R44.1 - Visual hallucinations Category: Medical (2) Hallucinations: Code(s): R44.3 - Hallucinations, unspecified Category: Medical (3) Gait abnormality: Code(s): R26.9 - Unspecified abnormalities of gait and mobility Category: Medical (4) Parasomnia: Code(s): G47.50 - Parasomnia, unspecified Category: Medical (5) Hypersomnia: Code(s): G47.10 - Hypersomnia, unspecified Category: Medical Plan Reviewed brain MRI- no findings to account for pt's symptoms. Discussed that though visual hallucinations can be seen in visual disorders and Chris Bonnet syndrome, however pt is having complex auditory hallucinations/delusions, which are not c/w a Chris- Bonnet Syndrome. Thus, pt is advised to undergo DaTscan to assess for dopaminergic neurodegenerative process. Reviewed benefits and risks of trying Quetipaine, reducing risk for harm/injury r/t bothersome hallucinations/delusions. Pt agrees to trial quetiapine, 12.5mg qhs, with 12.5mg qd prn hallucinations. Sleep study as ordered. Orders: Orders DaTscan 07/05/24 R26.9 - Unspecified abnormalities of gait and mobility, R29.6 - Repeated falls, R44.1 - Visual hallucinations, R44.3 - Hallucinations, unspecified Coding Level of Care Code Est Pt Level 4 ([id number]) Diagnoses Visual hallucinations R44.1 Hallucinations R44.3 Gait abnormality R26.9 Parasomnia G47.50 Hypersomnia G47.10
[2024-07-05 09:23] VITALS: BP 124/80; PULSE 50; O2SAT 95; BMI 25.6
== END 2024-07-05 10:25 | disposition home or self-care (01) ==
PROVIDERS: PCP Internal Medicine; Visit Provider Nurse Practitioner Family
DX: R44.1 Visual hallucinations (principal); R44.3 Hallucinations, unspecified; R26.9 Unspecified abnormalities of gait and mobility; G47.50 Parasomnia, unspecified; G47.10 Hypersomnia, unspecified
CPT/HCPCS: 99214

== ENCOUNTER → 2024-07-05 09:20 | Outpatient (BNVA) | payer MEDICARE, SELFPAY | PROVIDERS: PCP Internal Medicine; Visit Provider Nurse Practitioner Family | DX: R44.1 Visual hallucinations (principal); R26.9 Unspecified abnormalities of gait and mobility; G47.50 Parasomnia, unspecified; G47.10 Hypersomnia, unspecified; R29.6 Repeated falls | CPT/HCPCS: 99212 ==

== ENCOUNTER 2024-07-10 12:15 | Outpatient (REF) | payer MEDICARE, SELFPAY ==
[2024-07-10 12:35] LABS: MANUAL DIFF FLAG NO
[2024-07-10 12:39] LABS: Basophils Percent Auto 0.3 % (0-2); Eosinophils Absolute Auto 0.1 X10*3/uL (0.0-0.4); Eosinophils Percent Auto 3.5 % (0-4); Hematocrit 38.8 % (42.0-52.0); Hemoglobin 13.1 g/dl (14.0-18.0); Lymphocytes Absolute Auto 1.2 X10*3/uL (1.2-4.9); Lymphocytes Percent Auto 40.3 % (20-40); Mean Corpuscular HGB Conc 33.8 g/dl (31.0-36.0); Mean Corpuscular Hemoglobin 32.5 pg (27.0-33.0); Mean Corpuscular Volume 96.3 fL (80.0-98.0); Mean Platelet Volume 9.3 fL (9.4-12.4); Monocytes Absolute Auto 0.1 X10*3/uL (0.1-1.2); Monocytes Percent Auto 3.8 % (2-11); Neutrophils Absolute Auto 1.5 x10*3/uL (2.0-8.3); Neutrophils Percent Auto 52.1 % (45-73); Platelet Count 179 X10*3/uL (160-400); Red Blood Count 4.03 X10*6/uL (4.60-5.80); Red Cell Distribution Width 12.9 % (11.0-16.0); White Blood Count 2.9 X10*3/uL (4.8-10.8)
[2024-07-10 13:16] LABS: Alanine Aminotransferase 24 U/L (0-40); Albumin Level 4.1 g/dL (3.5-5.0); Alkaline Phosphatase 109 U/L (39-117); Anion Gap 10 (12-20); Aspartate Amino Transferase 23 U/L (5-37); Bilirubin Total 0.4 mg/dL (0.0-1.0); Blood Urea Nitrogen 17 mg/dL (9-16); Calcium 8.6 mg/dL (8.4-10.2); Carbon Dioxide 25 mmol/L (22-29); Chloride 112 mmol/L (96-108); Cholesterol 166 mg/dL (<200); Estimated Glomerular Filt Rate > 60; Glucose Fasting 91 mg/dL (60-99); HDL Cholesterol 40 mg/dL (>40); LDL Cholesterol Calculated 109 mg/dL (<100); Potassium 3.9 mmol/L (3.3-5.1); Sodium 143 mmol/L (135-145); Total Protein 6.7 g/dL (6.5-8.0); Triglycerides 87 mg/dL (<150)
[2024-07-10 13:30] LABS: Vitamin D 25-OH Total 30.3 ng/mL (>30)
[2024-07-10 13:41] LABS: Folate 11.4 ng/mL (> or = 4.0); Vitamin B12 950 pg/mL (200-900)
[2024-07-10 13:55] LABS: Appearance Urine Clear; Color Urine Yellow; Glucose Urine UA Negative (Negative); Leukocyte Esterase Urine Negative (Negative); Nitrite Urine Negative (Negative); Specific Gravity - Urine 1.025 (1.005-1.025); Urine Blood Negative (Negative); Urine Ketones Negative (Negative); Urine Protein Negative (Neg-Trace)
== END 2024-07-10 12:16 | disposition home or self-care (01) ==
LOC: HO.LAB 12:15
PROVIDERS: PCP Internal Medicine; Visit Provider Internal Medicine
DX: D64.9 Anemia, unspecified (principal); E55.9 Vitamin D deficiency, unspecified; R30.0 Dysuria; E78.00 Pure hypercholesterolemia, unspecified; E53.8 Deficiency of other specified B group vitamins
CPT/HCPCS: 36415; 80053; 80061; 81003; 82306; 82607; 82746; 85025

== ENCOUNTER 2024-07-11 15:55 | Outpatient (AMB) | payer MEDICARE, SELFPAY ==
[2024-07-11 16:23] VITALS: BP 138/86; PULSE 68; O2SAT 97; BMI 26.0
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
== END 2024-07-11 17:02 | disposition home or self-care (01) ==
PROVIDERS: PCP Internal Medicine; Visit Provider Internal Medicine
DX: Z00.00 Encounter for general adult medical examination without abnormal findings (principal); E78.5 Hyperlipidemia, unspecified; D64.9 Anemia, unspecified; M17.0 Bilateral primary osteoarthritis of knee; M25.512 Pain in left shoulder; G89.29 Other chronic pain; R73.01 Impaired fasting glucose; E55.9 Vitamin D deficiency, unspecified; E53.8 Deficiency of other specified B group vitamins; H33.21 Serous retinal detachment, right eye; H40.50X0 Glaucoma secondary to other eye disorders, unspecified eye, stage unspecified; H34.8192 Central retinal vein occlusion, unspecified eye, stable; R41.3 Other amnesia; R44.1 Visual hallucinations; N40.1 Benign prostatic hyperplasia with lower urinary tract symptoms; R35.0 Frequency of micturition; F17.200 Nicotine dependence, unspecified, uncomplicated; Z12.11 Encounter for screening for malignant neoplasm of colon

== ENCOUNTER → 2024-07-11 15:55 | Outpatient (BNVA) | payer MEDICARE, SELFPAY | PROVIDERS: PCP Internal Medicine; Visit Provider Internal Medicine | DX: Z00.01 Encounter for general adult medical examination with abnormal findings (principal); E78.5 Hyperlipidemia, unspecified; D64.9 Anemia, unspecified; M17.0 Bilateral primary osteoarthritis of knee; M25.512 Pain in left shoulder; G89.29 Other chronic pain; R73.01 Impaired fasting glucose; E55.9 Vitamin D deficiency, unspecified; E53.8 Deficiency of other specified B group vitamins; H33.21 Serous retinal detachment, right eye; R41.3 Other amnesia; R44.1 Visual hallucinations; N40.1 Benign prostatic hyperplasia with lower urinary tract symptoms; R35.0 Frequency of micturition; H40.50X0 Glaucoma secondary to other eye disorders, unspecified eye, stage unspecified; H34.8192 Central retinal vein occlusion, unspecified eye, stable; F17.200 Nicotine dependence, unspecified, uncomplicated; Z71.6 Tobacco abuse counseling | CPT/HCPCS: 96127; 99397 ==

== ENCOUNTER 2024-08-16 14:06 | Outpatient (AMB) | payer MEDICARE, SELFPAY ==
[2024-08-16 14:11] VITALS: BP 108/80; PULSE 66; O2SAT 95; BMI 26.0
--- NOTE | 2024-08-16 14:11 | A.OFFPC_ITS ---
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: No Accompanied by: Self / Same As Patient Allergies No Known Allergies [No Known Allergies*] Allergy (Verified 08/16/24 14:24) Medication List - Last Reconciled 08/16/24 by Monroe Boswell MD alprazolam 0.25 mg orally 1 tab 30 minutes prior to MRI, may repeat x's 1; 1 day atropine 1% drps ophthalmic (eye) bisacodyl (Dulcolax (bisacodyl)) 20 mg PO ONCE PRN cholecalciferol (vitamin D3) 50 mcg PO DAILY mecobalamin (vitamin B12) 1,000 mcg PO DAILY 90 days oxycodone-acetaminophen 10-325 mg 1 tab PO .3 to 4 times a day PRN 28 days polyethylene glycol 3350 (Miralax) 238 grams PO ONCE PRN quetiapine 25 mg PO BID 30 days sildenafil 50 mg PO DAILY PRN terazosin 2 mg PO DAILY 90 days Tobacco use date assessed: 08/16/24 Fall risk assessment: 2 + Falls in past year Last assessed Fall Risk: 08/16/24 Dental Screening Dental Screen Date: 08/16/24 Did you have a dental visit in the last 12 months?: No Did you have a dental problem in the last 6 months where you did not have access to dental care?: No Was dental information given to patient?: No HPI follow up prescription HPI Details Patient comes in today for his follow up visit - he is again accompanied by his daughter Laura, who helps him get to his appointments as he is still not allowed to drive a motor vehicle at this time States that he is still experiencing on and off visual hallucinations, which has been going on since last year - he reports often seeing people that are not there and at times engages in conversations and interactions with these hallucinatory people He continues to follow up with [facility] and had a brain MRI done in May 2024 that came out negative He was sent for a Dopamine Transporter scan, which was done at [facility] last month, and the study came back (+) for a significantly decreased radiotracer uptake in the left putamen He has been previously referred to and is scheduled to see Dr. Aleman next month for a 2nd opinion I suspect at this time that patient is suffering from Lewy body dementia based on his recent symptoms but we will wait and see what Dr. Aleman recommends next month Patient has been started on Quetiapine 25 mg at dinner and at bedtime (4 hours apart) by neurology - he initially was very hesitant about starting this medication but he finally agreed to start taking this and just started on the Rx 2 days ago He continues to struggle with decreased vision in his right eye from a retinal detachment that he suffered last year He underwent surgery to reattach his retina and also had cataract surgery done and has been receiving injections into his right eye to help control his neovascular glaucoma and to help correct his central retinal vein occlusion but he reports no significant improvement in his vision so far He supposedly also underwent laser surgery to his eye a couple of months ago, wi th limited improvement He denies any headaches or dizziness Denies any chest pains, no increased shortness of breath No nausea/vomiting, no abdominal pain No change in bowel habits noted [facility] Medical History (Updated 08/16/24 @ 14:49 by Monroe Boswell MD) Lewy body dementia with mood disturbance 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) Vitamin B12 deficiency Osteoarthritis of knees, bilateral Overweight (BMI 25.0-29.9) Smoker Erectile dysfunction Chronic left shoulder pain Vitamin D deficiency Benign prostatic hyperplasia Impaired fasting glucose Osteoarthritis of knee Dyslipidemia Surgical History Hx of appendectomy Family History Father CVD (cardiovascular disease) Mother Medical history unknown Social History Housing: House Alcohol intake: never Patient Tobacco Use Status: Current everyday Tobacco user Tobacco use type: Cigarette Cigarette Packs Per Day: 0.5 Cigarettes Per Day: 10 e-Cigarette/Vaping Use: Never Used Second Hand Smoke Exposure: Yes service: No Current occupational status: employed and retired 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 1. Little interest or pleasure in doing things: several days 2. Feeling down, depressed, or hopeless: not at all 3. Trouble falling or staying asleep, or sleeping too much: more than half the days 4. Feeling tired or having little energy: several days 5. Poor appetite or overeating: not at all 6. Feeling bad about yourself - or that you are a failure or have let yourself or your family down: not at all 7. Trouble concentrating on things, such as reading the newspaper or watching television: not at all 8. Moving or speaking so slowly that other people could have noticed. Or the opposite - being so fidgety or restless that you have been moving around a lot more than usual: not at all 9. Thoughts that you would be better off or of hurting yourself in some way: not at all Total score: 4 Depression Screening Interpretation: Positive Depression Screening Follow-up: Existing condition and In treatment Depression Screening Done: Yes 31393 - PHQ-9 Billing: Yes Source: Developed by Drs. Erick Gurrola, Genie New, Ector Rosas and colleagues, with an educational neo from [employer]. Thrive Questionnaire Date Thrive assessed: 08/16/24 I am a: Patient What is your living situation today?: I have a steady place to live Within the past 12 months, did the food you bought not last and you didn't have the money to get more?: Never true Within the past 12 months, did you worry whether your food would run out before you got money to buy more?: Never true Do you have trouble paying for medicines?: I choose not to answer this question Do you have trouble getting transportation to medical appointments?: I choose not to answer this question Do you have trouble paying your heating and electricity bill?: No Do you have trouble taking care of your child, family member or friend?: No Do you have trouble with day-to-day activities such as bathing, preparing meals, shopping, managing finances, etc.?: I choose not to answer this question Are you currently unemployed and looking for a job?: No Are you interested in more education?: No Please select the resources that you would like help with: Care for elder or disabled Currently or been in a relationship where the following occur: I choose not to answer THRIVE Score: 0 AUDIT C Alcohol Use Questionnaire (AUDIT-C) 1. How often do you have a drink containing alcohol?: Never 3. How often do you have six or more drinks on one occasion?: Never Total Score: 0 Score Reviewed/Action Taken: Yes YOLI-7 AMB Questionnaire YLOI-7 Date YOLI - 7 assessed: 08/16/24 Feeling nervous, anxious, or on edge: 1 = Several days Not being able to stop or control worryin = Several days Worrying too much about different things: 0 = Not at all Trouble relaxin = Several days Being so restless that it is hard to sit still: 1 = Several days Becoming easily annoyed or irritable: 1 = Several days Feeling afraid as if something awful might happen: 0 = Not at all Total YOLI-7 score (0-4 normal; 5-9 mild; 10-14 moderate; 15-21 severe): 5 Source: Developed by Drs. Erick Gurrola, Genie New, Ector Rosas and colleagues, with an educational neo from [employer]. Review of Systems Const Denies chills, Denies fatigue, Denies fever(s) and Denies headache(s) Eyes Reports blurry vision (in the right eye - see HPI), Denies irritation, Denies itchy eyes, Denies eye pain and Denies photophobia ENT Denies dysphagia, Denies dizziness, Denies otalgia, Denies headache(s), Denies nasal congestion, Denies neck pain, Denies odynophagia and Denies sore throat Card Denies chest pain, Denies rapid heart rate, Denies irregular heart rhythm, Denies palpitations and Denies dyspnea Resp Denies chest congestion, Denies cough and Denies dyspnea GI Denies abdominal pain, Denies constipation, Denies dysphagia, Denies heartburn, Denies diarrhea, Denies nausea, Denies odynophagia and Denies vomiting Denies hematuria, Denies difficulty urinating, Denies dysuria and Denies urinary frequency Musc Denies back pain, Reports arthralgias (in both knees (chronic) and left shoulder) and Denies neck pain Skin/Breast Denies rash Neuro Reports behavioral changes (agitation at times), Denies dizziness, Denies headache(s), Reports memory loss (per daughter) and Denies paresthesias Psych Reports anxiety (better controlled ), Reports behavioral changes (agitation at times), Reports memory loss (per daughter) and Reports visual hallucinations (see HPI) Endo Denies fatigue and Denies palpitations Aller/Immun Denies itchy eyes Physical exam (Primary Care) Vital Signs: Last Vital Signs Pulse 66 08/16/24 14:11 BP 108/80 08/16/24 14:11 Pulse Ox 95 08/16/24 14:11 Oxygen Delivery Method Room Air 08/16/24 14:11 BMI result Body Mass Index 26.0 Tobacco/Smoking Status: Tobacco use Status Tobacco use date assessed 08/16/24 08/16/24 14:16 Patient Tobacco Use Status Current everyday Tobacco 08/16/24 14:16 Tobacco use type Cigarette 08/16/24 14:16 e-Cigarette/Vaping Use Never Used 08/16/24 14:16 PHQ-9: PHQ-9 Score PHQ-9: Total score 4 08/16/24 14:28 Depression Screening Interpretation: Positive Depression Screening Follow-up: Existing condition and In treatment Thrive Assessment: Date of Thrive Assessment Date Thrive assessed 08/16/24 08/16/24 14:16 Currently or been in a relationship where the following occur: I choose not to answer Const General: no acute distress and alert HENMT Ears: TM's normal bilaterally and EAC's normal Throat: Yes posterior oropharynx normal and Yes tonsils normal (no TP congestion) Eyes Direct Ophthalmoscopy: No photophobia Neck Neck: Yes supple and No lymphadenopathy Thyroid: Thyroid normal Resp Auscultation: clear to auscultation bilaterally, no rales and no wheezes Cardio Rate: regular rate Rhythm: regular rhythm Heart sounds: no murmurs GI Palpation (GI): Soft to palpation and nontender Auscultation: normal bowel sounds General: Yes no CVA tenderness Back/Spine/Pelvis Back: no CVA tenderness Thoracic/Lumbar Spine: No lumbar spinal tenderness Skin Rashes: no rashes Neuro Other: (+) on and off confusion - per patient's daughter Extrem General: Yes no clubbing, cyanosis or edema Left upper extremity: shoulder/upper arm Details: tenderness Location: of the A- C joint and normal ROM Right lower extremity: knee Details: tenderness; no swelling Left lower extremity: knee Details: tenderness; no swelling Coding Level of Care Code Est Pt Level 4 (38275) Complex EM visit Add On G2211 Diagnoses Lewy body dementia with mood disturbance, unspecified dementia severity G31.83; F02.83 Dementia severity: unspecified severity Memory impairment R41.3 Dyslipidemia E78.5 Mild chronic anemia D64.9 Primary osteoarthritis of both knees M17.0 Osteoarthritis type: primary Chronic left shoulder pain M25.512; G89.29 Impaired fasting glucose R73.01 Vitamin D deficiency E55.9 Vitamin B12 deficiency E53.8 Retinal detachment, right H33.21 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) H40.50X0; H34.8192 Benign prostatic hyperplasia with urinary frequency N40.1; R35.0 Lower urinary tract symptom presence: symptoms present Lower urinary tract symptom detail: urinary frequency Smoker F17.200 Additional Codes PHQ-9 - 83324 - PHQ-9 Billing: Yes ([id number]) Assessment & Plan Assessment & Plan (1) Lewy body dementia with mood disturbance: Code(s): G31.83 - Neurocognitive disorder with Lewy bodies; F02.83 - Dementia in other diseases classified elsewhere, unspecified severity, with mood disturbance Category: Medical Qualifiers: Dementia severity: unspecified severity Qualified Code(s): G31.83 - Neurocognitive disorder with Lewy bodies; F02.83 - Dementia in other diseases classified elsewhere, unspecified severity, with mood disturbance Plan: I suspect that patient is suffering from Lewy body dementia, based on his recent symptoms and hallucinations and apparent cognitive decline He continues to report experiencing visual hallucinations and per his daughter, has had conversations and interactions with these hallucinations He had a brain MRI done a couple months ago that came out negative He was sent for a dopamine transporter scan, which he had done at [facility] last month, and the scan came back showing significantly decreased radiotracer uptake in the left putamen His Quetiapine was just recently increased to 25 mg at dinner and at bedtime by [facility], and per his daughter, patient just started taking this about 2 days ago He has been referred to Dr. Aleman, per his daughter's request, for a second opinion and he is now scheduled to be seen by Dr. Aleman next month (2) Memory impairment: Code(s): R41.3 - Other amnesia Category: Medical Plan: Have discussed with patient again my concerns about the likelihood of cognitive impairment/decline on his part and patient himself has admitted that he has been getting more forgetful lately He is currently following up with [facility] but he is also scheduled to see Dr. Aleman next month for a 2nd opinion Have advised patient's daughter again to help patient manage his medications, especially his opioids, and to not let patient handle his meds on his own Have also discussed with patient that we should also plan on cutting back on his opioid Rx, especially if he is determined to have some cognitive impairment or condition, as continuing on opioids in these situations can be detrimental to his overall condition Patient's daughter states that she would sometimes not give the patient his pain meds unless he asks for them and has noticed that he can sometimes go for a whole day without taking them until he somehow remembers them Have advised patient's daughter that as patient himself is apparently not able to manage his medications on his own at this time, I will try to cut back on his dose to half his original dose when his next refill is up and we will see how he does on the reduced dose (3) Dyslipidemia: Code(s): E78.5 - Hyperlipidemia, unspecified Category: Medical Plan: Reinforced low cholesterol diet (4) Mild chronic anemia: Code(s): D64.9 - Anemia, unspecified Category: Medical Plan: Patient has been presenting with mild anemia on his follow up labs often over the past year and he still has mild anemia on his most recent labs He has never had a screening colonoscopy done in the past (by personal choice) but agreed to get one done to further evaluation his chronic anemia He has been referred to gastroenterology for a screening colonoscopy and he is now scheduled to be seen by GI for a pre colonoscopy visit in September 2024 (5) Osteoarthritis of knees, bilateral: Code(s): M17.0 - Bilateral primary osteoarthritis of knee Category: Medical Qualifiers: Osteoarthritis type: primary Qualified Code(s): M17.0 - Bilateral primary osteoarthritis of knee Plan: He is on Oxycodone-Acetaminophen 10-325 mg 1 tablet 3 to 4 times a day as needed for increased pain but is again advised to try cutting back on his opioid Rx, especially in light of his recent and ongoing visual hallucinations and cognitive changes Have advised patient's daughter that when his next prescription is up for refill, I am considering cutting back on his dose gradually and we will see how he does on his reduced dose Follow up with orthopedics as scheduled (6) Chronic left shoulder pain: Code(s): M25.512 - Pain in left shoulder; G89.29 - Other chronic pain Category: Medical Plan: Patient states that his shoulder pain has been adequately controlled/managed with cortisone injections from orthopedics every few months when needed Follow up with orthopedics as scheduled (7) Impaired fasting glucose: Code(s): R73.01 - Impaired fasting glucose Category: Medical Plan: Both his HgbA1c (5.3%) and FBS (99 mg/dl) were normal when they were previously checked His fasting glucose was again normal at 91 mg/dL on his recent labs Reinforced low calorie/low carb diet (8) Vitamin D deficiency: Code(s): E55.9 - Vitamin D deficiency, unspecified Category: Medical Plan: Continue Vitamin D3 2000 units QD (9) Vitamin B12 deficiency: Code(s): E53.8 - Deficiency of other specified B group vitamins Category: Medical Plan: Continue Vitamin B12 1000 mcg QD (10) Retinal detachment, right: Code(s): H33.21 - Serous retinal detachment, right eye Category: Medical Plan: Patient suffered a retinal detachment in his right eye early last year S/P surgical repair but he continues to have problems with vision in his right eye - reportedly now has central retinal vein occlusion as well as neovascular glaucoma in the eye Follow up with ophthalmology/retina specialist as scheduled (11) 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): Code(s): H40.50X0 - Glaucoma secondary to other eye disorders, unspecified eye, stage unspecified; H34.8192 - Central retinal vein occlusion, unspecified eye, stable Category: Medical Plan: He is currently still receiving injections into his right eye from ophthalmology Follow up with ophthalmology as scheduled (12) Benign prostatic hyperplasia: Comment: S/P laser prostatectomy Code(s): N40.0 - Benign prostatic hyperplasia without lower urinary tract symptoms Category: Medical Qualifiers: Lower urinary tract symptom presence: symptoms present Lower urinary tract symptom detail: urinary frequency Qualified Code(s): N40.1 - Benign prostatic hyperplasia with lower urinary tract symptoms; R35.0 - Frequency of micturition Plan: Continue Terazosin 2 mg Q HS Follow up with urology as scheduled (13) Smoker: Code(s): F17.200 - Nicotine dependence, unspecified, uncomplicated Category: Social Hx Plan: Patient is counseled again on complete smoking cessation Plan Follow up as scheduled in September 2024 Medications: New 2 memantine 21 mg PO DAILY 30 days 30 ea 3RF
== END 2024-08-16 14:46 | disposition home or self-care (01) ==
LOC: HO.HMCH 14:07
PROVIDERS: PCP Internal Medicine; Visit Provider Internal Medicine
DX: E78.5 Hyperlipidemia, unspecified (principal); G31.83 Neurocognitive disorder with Lewy bodies; F02.83 Dementia in other diseases classified elsewhere, unspecified severity, with mood disturbance; H34.8192 Central retinal vein occlusion, unspecified eye, stable; R41.3 Other amnesia; D64.9 Anemia, unspecified; M17.0 Bilateral primary osteoarthritis of knee; M25.512 Pain in left shoulder; G89.29 Other chronic pain; R73.01 Impaired fasting glucose; E55.9 Vitamin D deficiency, unspecified; E53.8 Deficiency of other specified B group vitamins; H33.21 Serous retinal detachment, right eye

== ENCOUNTER → 2024-08-16 14:06 | Outpatient (BNVA) | payer MEDICARE, SELFPAY | PROVIDERS: PCP Internal Medicine; Visit Provider Internal Medicine | DX: G31.83 Neurocognitive disorder with Lewy bodies (principal); F02.83 Dementia in other diseases classified elsewhere, unspecified severity, with mood disturbance; R41.3 Other amnesia; E78.5 Hyperlipidemia, unspecified; D64.9 Anemia, unspecified; M17.0 Bilateral primary osteoarthritis of knee; M25.512 Pain in left shoulder; G89.29 Other chronic pain; R73.01 Impaired fasting glucose; E55.9 Vitamin D deficiency, unspecified; E53.8 Deficiency of other specified B group vitamins; H33.21 Serous retinal detachment, right eye; R35.0 Frequency of micturition; H40.50X0 Glaucoma secondary to other eye disorders, unspecified eye, stage unspecified; F17.200 Nicotine dependence, unspecified, uncomplicated; Z71.6 Tobacco abuse counseling | CPT/HCPCS: 96127; 99212 ==

== ENCOUNTER 2024-10-09 14:20 | Outpatient (AMB) | payer MEDICARE, SELFPAY ==
[2024-10-09 14:21] VITALS: BP 116/80; PULSE 67; O2SAT 95; BMI 27.4
--- NOTE | 2024-10-09 14:21 | MHC.PC.OV ---
Vital Signs 10/09/24 14:21 Height 6 ft Weight 202 lb 4 oz BMI 27.4 BP 116/80 Blood Pressure Location Lt brachial Position Sitting Pulse 67 Pulse Source Pulse Oximeter Pulse Oximetry (%) 95 Oxygen Delivery Method Room Air Intake Visit Reasons: 4 month f/u Enrober Required: No Accompanied by: Self / Same As Patient Allergies No Known Allergies [No Known Allergies*] Allergy (Verified 10/13/24 15:14) Medication List - Last Reconciled 10/09/24 by Monroe Boswell MD alprazolam 0.25 mg orally 1 tab 30 minutes prior to MRI, may repeat x's 1; 1 day atropine 1% drps ophthalmic (eye) bisacodyl (Dulcolax (bisacodyl)) 20 mg PO ONCE PRN cholecalciferol (vitamin D3) 50 mcg PO DAILY mecobalamin (vitamin B12) 1,000 mcg PO DAILY 90 days memantine 21 mg PO DAILY 30 days oxycodone-acetaminophen 10-325 mg 1 tab PO .3 to 4 times a day PRN 28 days polyethylene glycol 3350 (Miralax) 238 grams PO ONCE PRN quetiapine 25mg qam and 50mg qhs orally .; 30 days sildenafil 50 mg PO DAILY PRN terazosin 2 mg PO DAILY 90 days Tobacco use date assessed: 10/09/24 Fall risk assessment: 2 + Falls in past year Last assessed Fall Risk: 10/09/24 Dental Screening Dental Screen Date: 10/09/24 Did you have a dental visit in the last 12 months?: No Did you have a dental problem in the last 6 months where you did not have access to dental care?: No Was dental information given to patient?: No HPI 4 month f/u HPI Details Patient comes in today for his follow up visit - is accompanied as usual by his daughter Laura His daughter states that patient continues to experience recurrent visual hallucinations, which has been going on for over a year now Patient reports that he often sees people all around him and he often tries to engage in conversation and interacts with them but they sometimes do not respond to him at all Adds that he has a hard time sleeping at night even with his current meds - states that he often only gets a couple of hours of sleep and often wakes up due to very vivid dreams, and his daughter describes his reactions to something similar to a person who has night terrors He is also still dealing with decreased vision in his right eye from a retinal detachment that he suffered last year and he continues to follow up with his [facility] and retina specialist for this issue He denies any headaches or dizziness Denies any chest pains, no increased SOB No nausea/vomiting, no abdominal pain No change in bowel habits noted PFS Medical History Retinal detachment Lewy body dementia with mood disturbance 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) Vitamin B12 deficiency Osteoarthritis of knees, bilateral Overweight (BMI 25.0-29.9) Smoker Erectile dysfunction Chronic left shoulder pain Vitamin D deficiency Benign prostatic hyperplasia Impaired fasting glucose Osteoarthritis of knee Dyslipidemia Surgical History Hx of appendectomy Family History Father CVD (cardiovascular disease) Mother Medical history unknown Social History Housing: House Alcohol intake: never Patient Tobacco Use Status: Current everyday Tobacco user Tobacco use type: Cigarette Cigarette Packs Per Day: 0.5 Cigarettes Per Day: 10 e-Cigarette/Vaping Use: Never Used Second Hand Smoke Exposure: Yes service: No Current occupational status: employed and retired 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 1. Little interest or pleasure in doing things: several days 2. Feeling down, depressed, or hopeless: not at all 3. Trouble falling or staying asleep, or sleeping too much: more than half the days 4. Feeling tired or having little energy: several days 5. Poor appetite or overeating: not at all 6. Feeling bad about yourself - or that you are a failure or have let yourself or your family down: not at all 7. Trouble concentrating on things, such as reading the newspaper or watching television: several days 8. Moving or speaking so slowly that other people could have noticed. Or the opposite - being so fidgety or restless that you have been moving around a lot more than usual: several days 9. Thoughts that you would be better off or of hurting yourself in some way: not at all Total score: 6 Depression Screening Interpretation: Positive Depression Screening Follow-up: Existing condition and In treatment Depression Screening Done: Yes 65018 - PHQ-9 Billing: Yes Source: Developed by Drs. Erick Gurrola, Genie New, Ector Rosas and colleagues, with an educational neo from [employer]. Thrive Questionnaire Date Thrive assessed: 10/09/24 I am a: Patient What is your living situation today?: I have a steady place to live Within the past 12 months, did the food you bought not last and you didn't have the money to get more?: Never true Within the past 12 months, did you worry whether your food would run out before you got money to buy more?: Never true Do you have trouble paying for medicines?: I choose not to answer this question Do you have trouble getting transportation to medical appointments?: I choose not to answer this question Do you have trouble paying your heating and electricity bill?: No Do you have trouble taking care of your child, family member or friend?: No Do you have trouble with day-to-day activities such as bathing, preparing meals, shopping, managing finances, etc.?: I choose not to answer this question Are you currently unemployed and looking for a job?: No Are you interested in more education?: No Please select the resources that you would like help with: Care for elder or disabled Currently or been in a relationship where the following occur: I choose not to answer THRIVE Score: 0 AUDIT C Alcohol Use Questionnaire (AUDIT-C) 1. How often do you have a drink containing alcohol?: Never 3. How often do you have six or more drinks on one occasion?: Never Total Score: 0 Score Reviewed/Action Taken: Yes YOLI-7 AMB Questionnaire YOLI-7 Date YOLI - 7 assessed: 10/09/24 Feeling nervous, anxious, or on edge: 1 = Several days Not being able to stop or control worryin = Several days Worrying too much about different things: 0 = Not at all Trouble relaxin = Several days Being so restless that it is hard to sit still: 1 = Several days Becoming easily annoyed or irritable: 1 = Several days Feeling afraid as if something awful might happen: 0 = Not at all Total YOLI-7 score (0-4 normal; 5-9 mild; 10-14 moderate; 15-21 severe): 5 Source: Developed by Drs. Erick Gurrola, Genie New, Ector Rosas and colleagues, with an educational neo from [employer]. Review of Systems Const Denies chills, Reports difficulty sleeping, Denies fatigue, Denies fever(s) and Denies headache(s) Eyes Reports blurry vision (in the right eye ), Denies irritation, Denies itchy eyes, Denies eye pain and Denies photophobia ENT Denies dysphagia, Denies dizziness, Denies otalgia, Denies headache(s), Denies nasal congestion, Denies neck pain, Denies odynophagia and Denies sore throat Card Denies chest pain, Denies rapid heart rate, Denies irregular heart rhythm, Denies palpitations and Denies dyspnea Resp Denies chest congestion, Denies cough and Denies dyspnea GI Denies abdominal pain, Denies constipation, Denies dysphagia, Denies heartburn, Denies diarrhea, Denies nausea, Denies odynophagia and Denies vomiting Denies hematuria, Denies difficulty urinating, Denies dysuria and Denies urinary frequency Musc Denies back pain, Reports arthralgias (in both knees (chronic) and left shoulder) and Denies neck pain Skin/Breast Denies rash Neuro Reports behavioral changes (agitation at times), Denies dizziness, Denies headache(s), Reports memory loss (per daughter) and Denies paresthesias Psych Reports anxiety (better controlled ), Reports behavioral changes (agitation at times), Reports memory loss (per daughter) and Reports visual hallucinations (see HPI) Endo Denies fatigue and Denies palpitations Aller/Immun Denies itchy eyes Physical exam (Primary Care) Vital Signs: Last Vital Signs Pulse 67 10/09/24 14:21 BP 116/80 10/09/24 14:21 Pulse Ox 95 10/09/24 14:21 Oxygen Delivery Method Room Air 10/09/24 14:21 BMI result Body Mass Index 27.4 Tobacco/Smoking Status: Tobacco use Status Tobacco use date assessed 10/09/24 10/09/24 14:24 Patient Tobacco Use Status Current everyday Tobacco 10/09/24 14:24 Tobacco use type Cigarette 10/09/24 14:24 e-Cigarette/Vaping Use Never Used 10/09/24 14:24 PHQ-9: PHQ-9 Score PHQ-9: Total score 6 10/09/24 15:55 Depression Screening Interpretation: Positive Depression Screening Follow-up: Existing condition and In treatment Thrive Assessment: Date of Thrive Assessment Date Thrive assessed 10/09/24 10/09/24 14:24 Currently or been in a relationship where the following occur: I choose not to answer Const General: no acute distress and alert HENMT Ears: TM's normal bilaterally and EAC's normal Throat: Yes posterior oropharynx normal and Yes tonsils normal (no TP congestion) Eyes Direct Ophthalmoscopy: No photophobia Neck Neck: Yes supple and No lymphadenopathy Thyroid: Thyroid normal Resp Auscultation: clear to auscultation bilaterally, no rales and no wheezes Cardio Rate: regular rate Rhythm: regular rhythm Heart sounds: no murmurs GI Palpation (GI): Soft to palpation and nontender Auscultation: normal bowel sounds General: Yes no CVA tenderness Back/Spine/Pelvis Back: no CVA tenderness Thoracic/Lumbar Spine: No lumbar spinal tenderness Skin Rashes: no rashes Neuro Other: (+) on and off confusion - per patient's daughter Extrem General: Yes no clubbing, cyanosis or edema Left upper extremity: shoulder/upper arm Details: tenderness Location: of the A-C joint and normal ROM Right lower extremity: knee Details: tenderness; no swelling Left lower extremity: knee Details: tenderness; no swelling Coding Level of Care Code Est Pt Level 4 (45743) Diagnoses Lewy body dementia with mood disturbance, unspecified dementia severity G31.83; F02.83 Dementia severity: unspecified severity Parasomnia, unspecified type G47.50 Parasomnia type: unspecified parasomnia Dyslipidemia E78.5 Mild chronic anemia D64.9 Primary osteoarthritis of both knees M17.0 Osteoarthritis type: primary Chronic left shoulder pain M25.512; G89.29 Impaired fasting glucose R73.01 Vitamin D deficiency E55.9 Vitamin B12 deficiency E53.8 Retinal detachment, right H33.21 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) H40.50X0; H34.8192 Benign prostatic hyperplasia with urinary frequency N40.1; R35.0 Lower urinary tract symptom detail: urinary frequency Lower urinary tract symptom presence: symptoms present Smoker F17.200 Additional Codes PHQ-9 - 60022 - PHQ-9 Billing: Yes ([id number]) Assessment & Plan Assessment & Plan (1) Lewy body dementia with mood disturbance: Code(s): G31.83 - Neurocognitive disorder with Lewy bodies; F02.83 - Dementia in other diseases classified elsewhere, unspecified severity, with mood disturbance Category: Medical Qualifiers: Dementia severity: unspecified severity Qualified Code(s): G31.83 - Neurocognitive disorder with Lewy bodies; F02.83 - Dementia in other diseases classified elsewhere, unspecified severity, with mood disturbance Plan: Patient was seen by Dr. Thorne recently and he concurred that patient is suffering from Lewy body dementia and his daughter states that they were reportedly advised to continue following up with [facility] since they have been seeing patient all this time and Dr. Thorne was just for a second opinion His Quetiapine was increased by Dr. Thorne to 25 mg in AM and 50 mg at bedtime but due to his issues with sleeping at night (see HPI), I will go ahead and increase his bedtime dose up to 100 mg Q HS Have reminded patient's daughter again that she is to help patient manage his medications, especially his opioids, and to not let patient handle his meds on his own due to his dementia Have previously also discussed with patient that we should also plan on cutting back on his opioid Rx, as continuing him on opioids in his current situation can be detrimental to his overall condition Patient's daughter has stated that she would sometimes not give the patient his pain meds unless he asks for them and has noticed that he can sometimes go for a whole day without taking them until he remembers them Have advised patient's daughter that as patient himself is apparently not able to manage his medications on his own at this time, I will try to cut back on his dose to half his original dose when his next refill is up and we will see how he does on the reduced dose (2) Parasomnia: Code(s): G47.50 - Parasomnia, unspecified Category: Medical Qualifiers: Parasomnia type: unspecified parasomnia Qualified Code(s): G47.50 - Parasomnia, unspecified Plan: Will try increasing his bedtime dose of Quetiapine to 100 mg QHS Will also try starting him on Prazosin 1 mg Q HS Follow up with neurology as scheduled (3) Dyslipidemia: Code(s): E78.5 - Hyperlipidemia, unspecified Category: Medical Plan: Reinforced low cholesterol diet Will have patient recheck his labs and fasting lipids in 3 months for follow up (4) Mild chronic anemia: Code(s): D64.9 - Anemia, unspecified Category: Medical Plan: Patient has been presenting with mild anemia on his follow up labs often over the past year and he still has mild anemia on his most recent labs He has never had a screening colonoscopy done in the past (by personal choice) but agreed to get one done to further evaluation his chronic anemia He has been referred to gastroenterology for a screening colonoscopy and he is now scheduled to be seen by GI for a pre colonoscopy visit sometime this month (5) Osteoarthritis of knees, bilateral: Code(s): M17.0 - Bilateral primary osteoarthritis of knee Category: Medical Qualifiers: Osteoarthritis type: primary Qualified Code(s): M17.0 - Bilateral primary osteoarthritis of knee Plan: He is on Oxycodone-Acetaminophen 10-325 mg 1 tablet 3 to 4 times a day as needed for increased pain but is again advised to try cutting back on his opioid Rx, especially in light of his recent and ongoing visual hallucinations and cognitive changes Have advised patient's daughter that when his next prescription is up for refill, I am considering cutting back on his dose gradually and we will see how he does on his reduced dose Follow up with orthopedics as scheduled (6) Chronic left shoulder pain: Code(s): M25.512 - Pain in left shoulder; G89.29 - Other chronic pain Category: Medical Plan: Patient states that his shoulder pain has been adequately controlled/managed with cortisone injections from orthopedics every few months when needed Follow up with orthopedics as scheduled (7) Impaired fasting glucose: Code(s): R73.01 - Impaired fasting glucose Category: Medical Plan: Both his HgbA1c (5.3%) and FBS (99 mg/dl) were normal when they were previously checked His fasting glucose was again normal at 91 mg/dL on his most recent labs Reinforced low calorie/low carb diet (8) Vitamin D deficiency: Code(s): E55.9 - Vitamin D deficiency, unspecified Category: Medical Plan: Continue Vitamin D3 2000 units QD (9) Vitamin B12 deficiency: Code(s): E53.8 - Deficiency of other specified B group vitamins Category: Medical Plan: Continue Vitamin B12 1000 mcg QD (10) Retinal detachment, right: Code(s): H33.21 - Serous retinal detachment, right eye Category: Medical Plan: Patient suffered a retinal detachment in his right eye early last year S/P surgical repair but he continues to have problems with vision in his right eye - reportedly now has central retinal vein occlusion as well as neovascular glaucoma in the eye Follow up with ophthalmology/retina specialist as scheduled (11) 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): Code(s): H40.50X0 - Glaucoma secondary to other eye disorders, unspecified eye, stage unspecified; H34.8192 - Central retinal vein occlusion, unspecified eye, stable Category: Medical Plan: He is currently still receiving injections into his right eye from ophthalmology Follow up with ophthalmology as scheduled (12) Benign prostatic hyperplasia: Comment: S/P laser prostatectomy Code(s): N40.0 - Benign prostatic hyperplasia without lower urinary tract symptoms Category: Medical Qualifiers: Lower urinary tract symptom detail: urinary frequency Lower urinary tract symptom presence: symptoms present Qualified Code(s): N40.1 - Benign prostatic hyperplasia with lower urinary tract symptoms; R35.0 - Frequency of micturition Plan: Continue Terazosin 2 mg Q HS Follow up with urology as scheduled (13) Smoker: Code(s): F17.200 - Nicotine dependence, unspecified, uncomplicated Category: Social Hx Plan: Patient is counseled again on complete smoking cessation Plan Follow up in 3 months Orders: Orders Complete Blood Count Auto Diff 3 Months D64.9 - Anemia, unspecified Lipid Panel 3 Months E78.00 - Pure hypercholesterolemia, unspecified Comprehensive [place]. Panel Fast 3 Months E78.00 - Pure hypercholesterolemia, unspecified TSH reflex Free T4 3 Months E78.00 - Pure hypercholesterolemia, unspecified UA CC w/rflx Micro + Cult 3 Months R30.0 - Dysuria Vitamin B12 and Folate 3 Months E53.8 - Deficiency of other specified B group vitamins Vitamin D 25-OH Total 3 Months E55.9 - Vitamin D deficiency, unspecified B Type Natriuretic Peptide 3 Months I50.9 - Heart failure, unspecified Medications: New quetiapine 100 mg PO BEDTIME 30 days 30 tabs 3RF prazosin 1 mg PO BEDTIME 30 days 30 caps 3RF nightmares Changed From quetiapine 25mg qam and 50mg qhs orally .; 30 days 90 tabs 5RF To quetiapine 25 mg PO QAM 30 days 30 tabs 5RF
== END 2024-10-09 15:16 | disposition home or self-care (01) ==
LOC: HO.HMCH 14:20
PROVIDERS: PCP Internal Medicine; Visit Provider Internal Medicine
DX: G47.50 Parasomnia, unspecified (principal); G31.83 Neurocognitive disorder with Lewy bodies; H34.8192 Central retinal vein occlusion, unspecified eye, stable; F02.83 Dementia in other diseases classified elsewhere, unspecified severity, with mood disturbance; E78.5 Hyperlipidemia, unspecified; D64.9 Anemia, unspecified; M17.0 Bilateral primary osteoarthritis of knee; M25.512 Pain in left shoulder; G89.29 Other chronic pain; R73.01 Impaired fasting glucose; E55.9 Vitamin D deficiency, unspecified; E53.8 Deficiency of other specified B group vitamins

== ENCOUNTER → 2024-10-09 14:20 | Outpatient (BNVA) | payer MEDICARE, SELFPAY | PROVIDERS: PCP Internal Medicine; Visit Provider Internal Medicine | DX: G31.83 Neurocognitive disorder with Lewy bodies (principal); F02.83 Dementia in other diseases classified elsewhere, unspecified severity, with mood disturbance; G47.50 Parasomnia, unspecified; E78.5 Hyperlipidemia, unspecified; D64.9 Anemia, unspecified; M17.0 Bilateral primary osteoarthritis of knee; M25.512 Pain in left shoulder; G89.29 Other chronic pain; R73.01 Impaired fasting glucose; E55.9 Vitamin D deficiency, unspecified; E53.8 Deficiency of other specified B group vitamins; H33.21 Serous retinal detachment, right eye; H40.50X0 Glaucoma secondary to other eye disorders, unspecified eye, stage unspecified; H34.8192 Central retinal vein occlusion, unspecified eye, stable; N40.1 Benign prostatic hyperplasia with lower urinary tract symptoms; R35.0 Frequency of micturition; F17.200 Nicotine dependence, unspecified, uncomplicated; Z79.891 Long term (current) use of opiate analgesic | CPT/HCPCS: 96127; 99212 ==

== ENCOUNTER 2024-10-13 15:10 | Outpatient (AMB) | payer MEDICARE, SELFPAY ==
--- NOTE | 2024-10-13 15:12 | A.OFFVIS_ITS ---
Vital Signs 10/13/24 15:14 Height 6 ft Weight 202 lb BMI 27.4 BP 136/60 Blood Pressure Location Rt brachial Position Sitting Pulse 58 Pulse Source Pulse Oximeter Pulse Oximetry (%) 98 Oxygen Delivery Method Room Air Intake Visit Reasons: IVETT 2022. [place] scrn. NS x1 prev. Intake Note: ESTABLISHED PATIENT for rescreening for colo. Last seen 2022. No colo performed. Previously refused per PCP note. Pt also has chronic anemia. CC; Pt denies any GI sx or concerns at this time. Denies ever having colo. 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 En[place] scrn. NS x1 prev.: Details: LAST VISIT 05/03/2023 Colon cancer screening Plan Patient denies any GI, cardiac or respiratory symptoms.? Denies any issues with anesthesia in the past.? Denies any history of sleep apnea.? No history infectious diseases in the past or present.? Not on any anticoagulation therapy.? No family or personal history of colon cancer or polyps.? Patient denies melena, hematochezia, unintentional weight loss or ribbon like stools.? Discussed at length the pre-procedure,? prep, diet & medications as well as what to expect prior, during and after the procedure.?? Stressed the importance of good bowel prep. ?Recommended the use of Vaseline or Calmoseptine OTC & baby wipes with bowel movements to promote comfort.? ?Patient verbalizes understanding and agrees to plan of care.? He was given the opportunity to ask questions and all questions answered.? We will see him after the procedure.? Medications New bisacodyl (Dulcolax (bisacodyl)) take 4 tabs at noon the day before your colonoscopy 20 mg (4 x 5 mg) PO ONCE 1 day 4 tabs 0RF constipation Z12.11 polyethylene glycol 3350 (Miralax) As directed by gastroenterology department at [facility] 238 grams PO ONCE 238 grams 0RF Z12.11 * TODAY'S VISIT Patient is here today to discuss going for colonoscopy. Patient recently diagnosed with Lewy body dementia and is living with his daughter. Patient finally decided to go had and agreed to the procedure. Patient is here with his daughter. Patient currently lives with her and she is his healthcare proxy. Patient denies any GI concerning symptoms. Denies any issues with anesthesia in the past. No history of sleep apnea. Not on any anticoagulation medication. Denies any cardiac or respiratory symptoms. Reports that he is moving his bowels without any issues. Denies melena, hematochezia. Denies dyspepsia, dysphagia or odynophagia. 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) Vitamin B12 deficiency Osteoarthritis of knees, bilateral Overweight (BMI 25.0-29.9) Smoker Erectile dysfunction Chronic left shoulder pain Vitamin D deficiency Benign prostatic hyperplasia Impaired fasting glucose Osteoarthritis of knee Dyslipidemia Surgical History Hx of appendectomy Family History Father CVD (cardiovascular disease) Mother Medical history unknown Social History Housing: House Alcohol intake: never Patient Tobacco Use Status: Current everyday Tobacco user Tobacco use type: Cigarette Cigarette Packs Per Day: 0.5 Cigarettes Per Day: 10 e-Cigarette/Vaping Use: Never Used Second Hand Smoke Exposure: Yes service: No Current occupational status: employed and retired 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 Cognitive needs: No Hearing needs: No Vision needs: Yes Review of Systems Const Denies weight gain and Denies weight loss ENT Reports no additional complaints, Denies dysphagia and Denies odynophagia Card Reports no additional complaints Resp Reports no additional complaints GI Denies abdominal pain, Denies belching, Denies melena, Denies bloating, Denies change in bowel habits, Denies dysphagia, Denies excessive flatus, Denies d yspepsia, Denies heartburn, Denies diarrhea, Denies loose stools, Denies nausea, Denies odynophagia and Denies vomiting Reports no additional complaints Musc Reports no additional complaints Neuro Reports no additional complaints Psych Reports no additional complaints Endo Reports no additional complaints Physical Exam Vital Signs: Last Vital Signs Pulse 58 10/13/24 15:14 BP 136/60 10/13/24 15:14 Pulse Ox 98 10/13/24 15:14 Oxygen Delivery Method Room Air 10/13/24 15:14 BMI result Body Mass Index 27.4 Const General: healthy appearing, no acute distress and well developed Nutritional Appearance: well nourished Orientation/consciousness: patient oriented x3 Resp Effort & Inspection: normal respiratory effort, able to speak in complete sentences, no tracheal deviation and symmetric chest movement Auscultation: clear to auscultation bilaterally Cardio Rate: regular rate GI Inspection: Yes normal to inspection and No distended Palpation (GI): Soft to palpation, not firm, nontender and No hepatosplenomegaly present Auscultation: normal bowel sounds General: Yes no CVA tenderness Back/Spine/Pelvis Back: no CVA tenderness Skin General skin exam: elasticity normal, turgor normal and dry skin Neuro General: patient oriented x3 Psych Appearance: grossly normal Mental Status: mental status grossly normal Assessment & Plan Assessment & Plan (1) Colon cancer screening: Code(s): Z12.11 - Encounter for screening for malignant neoplasm of colon Category: Medical Plan Patient denies any GI, cardiac or respiratory symptoms.? Denies any issues with anesthesia in the past.? Denies any history of sleep apnea.? No history infectious diseases in the past or present.? Not on any anticoagulation therapy.? No family or personal history of colon cancer or polyps.? Patient denies melena, hematochezia, unintentional weight loss or ribbon like stools.? Discussed at length the pre-procedure,? prep, diet & medications as well as what to expect prior, during and after the procedure.?? Stressed the importance of good bowel prep.? Both patient and his daughter are agreeable to plan of care and verbalizes understanding of instructions. They were given the opportunity to ask questions and all questions answered. Medications: New polyethylene glycol 3350 (Miralax) As directed by gastroenterology department at [facility] 238 grams PO ONCE 238 grams 0RF Z12.11 - Encounter for screening for malignant neoplasm of colon bisacodyl (Dulcolax (bisacodyl)) take 4 tabs at noon the day before your colonoscopy 20 mg (4 x 5 mg) PO ONCE 1 day 4 tabs 0RF Z12.11 - Encounter for screening for malignant neoplasm of colon Coding Level of Care Code Est Pt Level 3 (96891) Diagnoses Colon cancer screening Z12.11 Time Spent (min) 35 Comment 25 minutes spent with patient and additional 10 minutes spent reviewing his records
[2024-10-13 15:14] VITALS: BP 136/60; PULSE 58; O2SAT 98; BMI 27.4
== END 2024-10-13 15:57 | disposition home or self-care (01) ==
LOC: HO.HGI 15:10
PROVIDERS: PCP Internal Medicine; Visit Provider Nurse Practitioner Family
DX: Z12.11 Encounter for screening for malignant neoplasm of colon (principal)
CPT/HCPCS: 99024

== ENCOUNTER → 2024-10-13 15:10 | Outpatient (BNVA) | payer MEDICARE, SELFPAY | PROVIDERS: PCP Internal Medicine; Visit Provider Nurse Practitioner Family | DX: Z01.818 Encounter for other preprocedural examination (principal) | CPT/HCPCS: 99212 ==

== ENCOUNTER 2024-10-27 09:39 | Outpatient (AMB) | payer MEDICARE, SELFPAY ==
[2024-10-27 10:13] VITALS: BP 120/68; PULSE 58; O2SAT 96; BMI 26.2
--- NOTE | 2024-10-27 10:13 | A.OFFVIS_ITS ---
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 Accompanied by: Daughter Allergies No Known Allergies [No Known Allergies*] Allergy (Verified 10/27/24 10:16) Medication List - Last Reconciled 10/27/24 by REBECCA Vargas alprazolam 0.25 mg orally 1 tab 30 minutes prior to MRI, may repeat x's 1; 1 day atropine 1% drjuan ophthalmic (eye) bisacodyl (Dulcolax (bisacodyl)) 20 mg (4 x 5 mg) PO ONCE 1 day cholecalciferol (vitamin D3) 50 mcg PO DAILY mecobalamin (vitamin B12) 1,000 mcg PO DAILY 90 days memantine 21 mg PO DAILY 30 days oxycodone-acetaminophen 10-325 mg 1 tab PO .3 to 4 times a day PRN 28 days polyethylene glycol 3350 (Miralax) 238 grams PO ONCE prazosin 1 mg PO BEDTIME 30 days quetiapine 25 mg PO QAM 30 days quetiapine 100 mg PO BEDTIME 30 days sildenafil 50 mg PO DAILY PRN terazosin 2 mg PO DAILY 90 days HPI Comments Details: 74-yr-old male presents for urgent follow-up of worsening hallucinations.. Pt is accompanied by his dtr, Laura. Pt is concerned about persistent hallucinations. 08/03/2024, brain angela SPECT study, showed asymmetrical decreased radiotracer in bilateral basal ganglia with decreased uptake in the region of the left putamen. Normal radiotracer uptake in the right basal ganglia. Impression: Significantly decreased radiotracer uptake in the left putamen. ADL status: Ind, has been given an aide to help with socks IADL status: needs assist Fine-motor skills: shaky writing Changes in writing or micrographia: shaking writing Vision changes: [dry eye,] [diplopia] Voice changes or Hypophonia: denies Hyposmia: denies Dysphagia: pt denies, but dtr has noticed a couple of episodes of food going down wrong Drooling: some drooling- attributes to his dentures Orthostatic lightheadedness: denies GI: Denies constipation. : denies Musculoskeletal issues: knee pain pain, stiffness, legs stiffen up Paresthesias: denies Slowness: pt denies, dtr feels he is a bit slower Stiffness: just in the knees/legs Tremor: maybe a little bit in hands Involuntary movements: denies Dyskinesia: denies Gait changes: Feels his knees legs are getting stronger, but balance is off. Uses a cane. Dtr notes a slight shuffle- more so when he wears his slippers. Freezing episodes: denies Falls: He has had 2 falls- going up the stairs, dtr states it looks like he is losing his momentum. And 1 fall out of bed- while fighting in a dream. Mood concerns: states he becomes crabby in the afternoon- dtr feels he is more discouraged and frustration. Memory impairment: fair Sleep difficulty: states he is sleeping about 4 hours a night, but sleeps in the chair throughout the day. He has been sleeping in his chair since the recent falling out of bed. He has a regular bed Parasomnias: Acting out his dreams- as above. Hallucinations: Has visual hallucinations all the day- sees ghosts- sometimes they are scary, other times he sees them using the ottoman as a toilet. He becomes frustrated when he cannot get the ghosts to leave. Usual exercise: Walking about 1/4 mile in the am, and walks around the house. History of concussion/head injury? Denies History of neuroleptic (metoclopramide/antipsychotics) use? denies prior to starting quetiapine recently History of psychiatric hospitalizations? none History of occupational chemical exposures? served from [id number], in the [employer] force. Worked with [employer] in [place]. Family history of movement disorders? His father at age 89- he did have hallucinations in the last 3 yrs of his life, at the time when he stopped recognizing his family members- he was a marine, served in WWII, and had malaria. states his mother probably had AD as well- had progressive forgetfulness, mood changes, falls. His sister had NPH x's 6 yrs- w/ prominent dizziness, cognitive difficulties- but much imrpoved s/p GARNETT FIXER shunt placement. Family history of mood disorder or suicide? None 07/05/2024, previous HPI: 74-yr-old male presents for urgent follow-up of worsening hallucinations.. Pt is accompanied by his dtr, Laura. Pt's dtr had called last week with concerns that pt is having increased hallucinations. Patient has not been having signs of active infection. We had placed in an order for Quetiapine, however pt was hesitant to take these d/t risk for side effects- including the black box warning, risk for cataracts. They describe his hallucinations as seeing people in or outside the house. He may talk to the people. He may try to bring them food or clothes or tell them to leave. He states that some of the people do talk to him- dtr reinforces that pt is having a back and forth conversation with them. Sometimes when he comes around the corner, they will stop working or leave as they know he will go right through them . Sometimes they moves stuff on him. He continues to have difficulty sleeping. His sleep study is scheduled for later this month. Dtr notes he has had a couple of falls. Is using a cane. He has had issues with retinal detachment since Feb 2023, and underwent cataract surgery August 2023, and has been living with [facility] since fall. He served from [id number], in the [employer]. [facility] 04/26/2025, Initial HPI: 74-yr-old male presents for new in-person patient visit for sleep consultation. Pt is accompanied by his dtr, Laura. Patient reports he has had loud snoring even with using breathe-right type nasal strips. Pt also notes he recently moved in with his dtr/dtr's family apporx 5 weeks ago due to his health issues. He notes he had a fall 6 weeks ago, became dizzy and fell down a flight of stairs, was found laying on the floor by his roommate and when he tried to get up, fell back down. He denies LOC, however it is not clear that he did not have LOC. He did not seek medical attention for this. His dtr states that the fall was likely triggered by a COVID-19 inefction, and taking Paxlovid w/ his usual oxycodone dose. Dtr also notes that pt seems more fidgety w/ his hands, gait changes- shuffling, STM difficulties, parasomnias. Pt denies tremor, restlessness, significant memory issues. States writing is scribbly. Sleep history questionnaire: Have you ever been diagnosed with a sleep disorder? No Have you ever had a sleep study in the past? No Have you ever been treated for a sleep disorder? No Do you take medications/supplements for a sleep disorder? No Current sleep symptom questionnaire: Pt reports he easily falls asleep. Pt reports daytime sleepiness, easily falls asleep when inactive. Pt reports snoring, nocturnal gasping. Pt reprots drooling- during the day and night Pt reports endentulous status Pt reports occasional constipation. Scheduled for a routine colonoscopy. Pt reports nocturia, 2 times per night and easily falls back asleep. Pt denies RLS. Pt dtr reports hand movement in sleep, and some hand fidgeting when awake. Pt's dtr reports occasional sleep talking, yelling out in his sleep. Pt reports his memory is not as good as it used to be- some difficulty w/ name recall. 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 Pt endorses family h/o similar sleep s/s- father was a heavy snorer. 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 Usual bedtime is at 6-8pm Usual time to fall asleep 6-8pm Usual wake-up time 4am Usual out of bed time is at 4am Naps: Takes unintentional unscheduled naps Sleep environment: comfortable, cool, quiet Electronic use in bedroom: TV- sleeps w/ TV on and volume low Exercise: Regular exercise: takes a 1/2 mile walk a day Caffeine or other stimulants: 1 cups of coffee per day in am only. 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) Vitamin B12 deficiency Osteoarthritis of knees, bilateral Overweight (BMI 25.0-29.9) Smoker Erectile dysfunction Chronic left shoulder pain Vitamin D deficiency Benign prostatic hyperplasia Impaired fasting glucose Osteoarthritis of knee Dyslipidemia Surgical History Hx of appendectomy Family History Father CVD (cardiovascular disease) Mother Medical history unknown Social History Housing: House Alcohol intake: never Patient Tobacco Use Status: Current everyday Tobacco user Tobacco use type: Cigarette Cigarette Packs Per Day: 0.5 Cigarettes Per Day: 10 e-Cigarette/Vaping Use: Never Used Second Hand Smoke Exposure: Yes service: No Current occupational status: employed and retired 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 No rest or postural tremor. BUE, left greater than right, mild rigidity Fine finger movements, decreased bilaterally, more so on left Foot taps decreased and poor fluidity bilaterally. Stands slowly, slight stoop, right shoulder drooped, decreased arm swing w/ right hand finger movements, shorter steps w/ antalgic gait with low floor clearance was obtained. Unsteady with retropulsion during quick turn. Psych Mental Status: mental status grossly normal Speech and movement: Clear speech present Attitude: cooperative Assessment & Plan Assessment & Plan (1) Visual hallucinations: Code(s): R44.1 - Visual hallucinations Category: Medical (2) Gait abnormality: Code(s): R26.9 - Unspecified abnormalities of gait and mobility Category: Medical (3) Parasomnia: Code(s): G47.50 - Parasomnia, unspecified Category: Medical Qualifiers: Parasomnia type: unspecified parasomnia Qualified Code(s): G47.50 - Parasomnia, unspecified (4) Hypersomnia: Code(s): G47.10 - Hypersomnia, unspecified Category: Medical (5) REM sleep behavior disorder: Code(s): G47.52 - REM sleep behavior disorder Category: Medical (6) Dementia due to Parkinson's disease, with psychotic disturbance, without dyskinesia: Code(s): G20.A1 - Parkinson's disease without dyskinesia, without mention of fluctuations; F02.82 - Dementia in other diseases classified elsewhere, unspecified severity, with psychotic disturbance Category: Medical Plan Reviewed results of recent [facility]AN, which are consistent with a progressive neurodegenerative dopaminergic deficiency process. Patient does have progressive motor symptoms, including gait changes, stiffness, bradykinesia. Continue quetiapine 25 mg daily in the morning and 100 mg daily at bedtime. Start Nuplazid 34 mg daily in a.m.. Prazosin 1 mg daily at bedtime- patient feels this exacerbated his REM sleep behaviors Start clonazepam 0.25-0.5 mg daily at bedtime to prevent REM sleep behaviors. Discussed importance of keeping area around bed/sleep area free of clutter, trip hazards. Consider placing bumper protections on furniture dear patient's sleep environment. Consider placing an alarm on patient's bedroom door, to alert family if patient starts sleepwalking at night-W has not done this at this point. Avoid using bed rails, as this may increase risk for injury from REM sleep behavior. Patient previously declined in-lab sleep study- we will reconsider in follow-up. Pt to follow-up in 3-6 months or sooner prn. Medications: New clonazepam administer 30 minutes before bedtime 0.25 - 0.5 mg (0.5 - 1 x 0.5 mg) PO BEDTIME 30 days 30 tabs 2RF G47.52 - REM sleep behavior disorder pimavanserin (Nuplazid) 34 mg PO DAILY 30 days 30 caps 6RF Discontinued prazosin Discontinued Reason: Doctor's Order 1 mg PO BEDTIME 30 days 30 caps 1RF nightmares Coding Level of Care Code Est Pt Level 4 (07630) Diagnoses Visual hallucinations R44.1 Gait abnormality R26.9 Parasomnia, unspecified type G47.50 Parasomnia type: unspecified parasomnia Hypersomnia G47.10 REM sleep behavior disorder G47.52 Dementia due to Parkinson's disease, with psychotic disturbance, without dyskinesia G20.A1; F02.82
== END 2024-10-27 11:17 | disposition home or self-care (01) ==
LOC: HO.HSMS 09:39
PROVIDERS: PCP Internal Medicine; Visit Provider Nurse Practitioner Family
DX: R44.1 Visual hallucinations (principal); R26.9 Unspecified abnormalities of gait and mobility; G47.50 Parasomnia, unspecified; G47.10 Hypersomnia, unspecified; G47.52 REM sleep behavior disorder; G20.A1 Parkinson's disease without dyskinesia, without mention of fluctuations; F02.82 Dementia in other diseases classified elsewhere, unspecified severity, with psychotic disturbance
CPT/HCPCS: 99214

== ENCOUNTER → 2024-10-27 09:39 | Outpatient (BNVA) | payer MEDICARE, SELFPAY | PROVIDERS: PCP Internal Medicine; Visit Provider Nurse Practitioner Family | DX: R44.1 Visual hallucinations (principal); R26.9 Unspecified abnormalities of gait and mobility; G47.50 Parasomnia, unspecified; G47.10 Hypersomnia, unspecified; G47.52 REM sleep behavior disorder; G20.A1 Parkinson's disease without dyskinesia, without mention of fluctuations; F02.82 Dementia in other diseases classified elsewhere, unspecified severity, with psychotic disturbance | CPT/HCPCS: 99212 ==

== ENCOUNTER 2024-11-22 08:02 | Emergency (ER) | payer MEDICARE, SELFPAY ==
--- NOTE | 2024-11-22 | ECG_ITS ---
Test Reason : AMS Blood Pressure : */* mmHG Vent. Rate : 65 BPM Atrial Rate : 65 BPM P-R Int : 178 ms QRS Dur : 90 ms QT Int : 424 ms P-R-T Axes : 10 -42 -8 degrees QTcB Int : 440 ms Normal sinus rhythm Left axis deviation Abnormal ECG When compared with ECG of 24-Aug-2011 13:29, QRS axis Shifted left Borderline criteria for Inferior infarct are no longer Present T wave amplitude has decreased in Anterolateral leads Referred By: Generic ED Physician Electronically Signed By: ASHLYN HASTINGS
--- NOTE | ~2024-11-22 | CT_ITS ---
EXAMINATION: CT ANGIOGRAM HEAD AND NECK and unenhanced head CT COMPARISON: MRI brain June 11, 2024 and ultrasound carotid Doppler December 30, 2023 CLINICAL INFORMATION: Slurred speech, confusion TECHNIQUE: The degree of stenosis determined by NASCET criteria. Noncontrast axial imaging of the head was performed. This was followed by test bolus sequences and head and neck intravenous bolus administration 70mL of Omnipaque 350. Helical imaging was performed in the axial plane from the aortic arch to the skull vertex. The data was processed at the operating room surgical technologist's workstation for generation of MIP sequences. Angled MIPs and volume rendered reformatted images were also generated at an offline 3D workstation. Stenoses are assessed in accordance with NASCET criteria unless otherwise indicated. This CT examination was performed using dose optimization techniques as appropriate, variously including the following: *Automated exposure control *Adjustment of mA and/or kV according to patient size (this includes techniques or standardized protocols for targeted exams where dose is matched to indication/reason for exam; i.e. extremities or head) *Use of iterative reconstruction technique DLP: 1549 mGy*cm FINDINGS: NONCONTRAST HEAD CT: There is mild generalized atrophy. There is no evidence of intracranial hemorrhage or extra-axial fluid collection. There is no mass effect, or edema. No CT evidence of acute territorial infarct. Ventricles, sulci, and cisterns are normal in size and configuration for patient age. No hydrocephalus. No midline shift. There is minimal white matter hypodensity. Globes and orbital contents image normally. No extracranial soft tissue abnormalities. The paranasal sinuses, mastoid air cells, and tympanic cavities are normally aerated. No suspicious bony abnormalities. NECK CTA: -AORTIC ARCH: Normal in caliber. Mild atheromatous calcification. Three-vessel branching pattern. -GREAT VESSEL ORIGINS: Widely patent. No stenosis. -RIGHT COMMON CAROTID ARTERY: Normal in course and caliber to the level of the bifurcation. Punctate calcification is present in the distal common carotid artery. -CERVICAL RIGHT INTERNAL CAROTID ARTERY: Normal opacification without focal stenosis or occlusion. -LEFT COMMON CAROTID ARTERY: There is multifocal calcified plaque without hemodynamically significant stenosis. -CERVICAL LEFT INTERNAL CAROTID ARTERY: No calcified plaque. No hemodynamically significant stenosis. -CERVICAL RIGHT VERTEBRAL ARTERY: Codominant. Focal calcified plaque is present at the origin without hemodynamically significant stenosis -CERVICAL LEFT VERTEBRAL ARTERY: Codominant. The origin is moderately obscured by beam hardening artifact related to inflow of contrast through the left subclavian vein. OTHER, SOFT TISSUES: -No lymphadenopathy or mass. No abnormal fluid collection or soft tissue swelling. -Normal thyroid. -Imaged superior mediastinal structures normal. -Imaged lung apices clear. CTA OF THE BRAIN: -INTRACRANIAL INTERNAL CAROTID ARTERIES: No focal stenosis or occlusion. -RIGHT ANTERIOR CEREBRAL ARTERY: Normal A1 segment.. Normal arborization of the distal segments. -LEFT ANTERIOR CEREBRAL ARTERY: Normal A1 segment.. Normal arborization of the distal segments. -ANTERIOR COMMUNICATING ARTERY: Normal. -RIGHT MIDDLE CEREBRAL ARTERY: Normal M1 segment of the MCA without focal stenosis or occlusion. Normal bifurcation. Normal arborization of the distal segments. -LEFT MIDDLE CEREBRAL ARTERY: Normal M1 segment of the MCA without focal stenosis or occlusion. Normal bifurcation. Normal arborization of the distal segments. -RIGHT VERTEBRAL ARTERY V4: Normal in course and caliber. Normal PICA branch. -LEFT VERTEBRAL ARTERY V4: Normal in course and caliber. PICA branch not well demonstrated. It is partially obscured by beam hardening artifact related to the skull base. -BASILAR ARTERY: Normal without focal stenosis or occlusion. Normal appearance of the proximal superior cerebellar arteries. Normal basilar tip. -RIGHT POSTERIOR CEREBRAL ARTERY: Normal P1 segment. Normal opacification of the distal [employer] segments. -LEFT POSTERIOR CEREBRAL ARTERY: Normal P1 segment. Normal opacification of the distal [employer] segments. -POSTERIOR COMMUNICATING ARTERIES: Not well seen and probably absent. CT/CT angio head neck IMPRESSION: NONCONTRAST HEAD CT: No intracranial hemorrhage or mass effect. No CT evidence of a large acute territorial infarct. CTA NECK: No hemodynamically significant stenosis. There is calcified plaque in the left common carotid artery. CTA HEAD: Left posterior inferior cerebellar artery is not well visualized. In part, it may be obscured by beam hardening artifact related to the skull base. However, patency is not clearly demonstrated. No other areas concerning for hemodynamically significant stenosis. Posterior communicating arteries are not clearly demonstrated and may be absent. Communicated to GIDEON Banks Electronically signed by: Bernabe Perez MD 11/22/2024 11:57 AM EDT
[2024-11-22 08:08] VITALS: BP 144/73; PULSE 75; RESP 20; TEMP 36.5; O2SAT 98; BMI 31.4
[2024-11-22 08:43] VITALS: BP 143/93; PULSE 78; RESP 14; O2SAT 95
[2024-11-22 08:45] LABS: Basophils Percent Auto 0.4 % (0-2); Hemoglobin 13.2 g/dl (14.0-18.0); Red Cell Distribution Width 13.4 % (11.0-16.0)
[2024-11-22 08:50] LABS: Eosinophils Absolute Auto 0.1 X10*3/uL (0.0-0.4); Eosinophils Percent Auto 3.1 % (0-4); Hematocrit 37.2 % (42.0-52.0); Lymphocytes Absolute Auto 1.4 X10*3/uL (1.2-4.9); Lymphocytes Percent Auto 53.5 % (20-40); Mean Corpuscular HGB Conc 35.5 g/dl (31.0-36.0); Mean Corpuscular Hemoglobin 32.9 pg (27.0-33.0); Mean Corpuscular Volume 92.8 fL (80.0-98.0); Mean Platelet Volume 9.2 fL (9.4-12.4); Monocytes Absolute Auto 0.1 X10*3/uL (0.1-1.2); Monocytes Percent Auto 3.5 % (2-11); Neutrophils Percent Auto 39.5 % (45-73); Red Blood Count 4.01 X10*6/uL (4.60-5.80)
[2024-11-22 08:55] LABS: White Blood Count 2.5 X10*3/uL (4.8-10.8)
[2024-11-22 08:56] LABS: Platelet Count 111 X10*3/uL (160-400)
[2024-11-22 09:01] LABS: Alanine Aminotransferase 22 U/L (0-40); Albumin Level 4.4 g/dL (3.5-5.0); Alkaline Phosphatase 89 U/L (39-117); Anion Gap 10 (12-20); Aspartate Amino Transferase 26 U/L (5-37); Bilirubin Total 0.7 mg/dL (0.0-1.0); Blood Urea Nitrogen 18 mg/dL (9-16); Carbon Dioxide 25 mmol/L (22-29); Chloride 113 mmol/L (96-108); Estimated Glomerular Filt Rate > 60; Glucose Random 92 mg/dL (60-115); Potassium 3.3 mmol/L (3.3-5.1); Sodium 145 mmol/L (135-145); Total Protein 6.5 g/dL (6.5-8.0)
--- NOTE | 2024-11-22 09:16 | ED_ITS ---
HPI - Neuro Symptoms/Deficit General Chief Complaint: Neuro Symptoms/Deficit Stated Complaint: confused, unstable on his feet Time Seen by Provider: 11/22/24 09:13 Source: patient and family (patient's daughter) Mode of arrival: ambulatory Limitations: altered mental status History of Present Illness ED Provider: Kallie Finney PA-C HPI Narrative: Patient is a 74 year old assigned male at with a history of Lewy body dementia, parkinson's, glaucoma, PTSD, BPH, and OA presenting to the emergency department today with worsening confusion. Patient states that he feels fine and he has no complaints. When asked what year it is - he states it is 2054. When asked who the president is - he states it is [place]. When asked why everyone was wearing masks for the last 5 years - he states COVID-19. Patient's daughter states that the patient has had worsening weakness, slurred speech / mumbling, hallucinations, and confusion. Patient's daughter states that the patient has been having new and more frequent hallucinations. Related Data Home Medications ?Medication ?Instructions ?Recorded ?Confirmed brimonidine 0.2 % eye drops 1 drp ophthalmic-Right TID 11/22/24 11/22/24 dorzolamide 22.3 mg-timolol 6.8 1 drp ophthalmic-Right TID 11/22/24 11/22/24 mg/mL eye drops latanoprost 0.005 % eye drops 1 drp ophthalmic-Right B EDTIME 11/22/24 11/22/24 memantine 21 mg capsule 21 mg PO DAILY 11/22/2410/30 sprinkle,extended release 24hr prazosin 1 mg capsule 1 mg PO BEDTIME nightmares 0 11/22/24 11/22/24 Previous Rx's ?Medication ?Instructions ?Recorded terazosin 2 mg capsule 2 mg PO DAILY 90 days #90 ca ps 09/12/24 quetiapine 25 mg tablet 25 mg PO QAM 30 days #30 tab s 10/09/24 quetiapine 100 mg tablet 100 mg PO BEDTIME 30 days #3 0 tabs 10/12/24 clonazepam 0.5 mg tablet 0.25 - 0.5 mg (0.5 - 1 x 0.5 mg) 10/27/24 PO BEDTIME 30 days #30 tabs pimavanserin 34 mg capsule 34 mg PO DAILY 30 days #30 caps 11/10/24 (Nuplazid) Allergies Allergy/AdvReac Type Severity Reaction Status Date / Time No Known Allergies (No Known Allergy Verified 11/22/24 08:11 Allergies*) Review of Systems 2 Constitutional: Constitutional: Reports no additional constitutional complaints, Denies chills, Denies fever(s) and Denies night sweats Eyes: Eyes: Reports no additional eye complaints, Denies blurry vision, Denies change in vision, Denies diplopia, Denies eye discharge, Denies loss of vision and Denies eye pain ENT: Denies dizziness Cardiovascular: Cardiovascular: Reports no additional cardiovascular complaints, Denies chest pain, Denies lightheadedness, Denies Loss of Consciousness and Denies dyspnea Respiratory: Respiratory: Reports no additional respiratory complaints and Denies dyspnea Gastrointestinal: Gastrointestinal: Reports no additional gastrointestinal complaints, Denies abdominal pain, Denies melena, Denies hematochezia, Denies change in bowel habits and Denies change in stool character Genitourinary: Genitourinary: Reports no additional male genitourinary complaints, Denies hematuria, Denies oliguria, Denies difficulty urinating, Denies dysuria, Denies urinary frequency, Denies urinary hesitancy, Denies urinary incontinence and Denies urinary urgency Musculoskeletal: Musculoskeletal: Reports no additional musculoskeletal complaints, Denies numbness and Denies tingling Neurologic: Reports confusion, Denies dizziness, Denies loss of vision, Denies numbness and Denies tingling Psychiatric: Psychiatric: Reports no additional psychiatric complaints, Reports confusion and Reports visual hallucinations Endocrine: Endocrine: Reports no additional endocrine complaints Hematologic/Lymphatic: Hematologic/Lymphatic: Reports no additional hematologic/lymphatic complaints Allergic/Immunologic: Allergic/Immunologic: Reports no additional allergic/immunologic complaints [facility] Past Medical History Attestation statement: The following information was validated with the patient. 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) Vitamin B12 deficiency Osteoarthritis of knees, bilateral Overweight (BMI 25.0-29.9) Smoker Erectile dysfunction Chronic left shoulder pain Vitamin D deficiency Benign prostatic hyperplasia Impaired fasting glucose Osteoarthritis of knee Dyslipidemia Surgical History Hx of appendectomy Family History Family History Father CVD (cardiovascular disease) Mother Medical history unknown Social History Social History Housing: House Alcohol intake: never Patient Tobacco Use Status: Current everyday Tobacco user Tobacco use type: Cigarette Cigarette Packs Per Day: 0.5 Cigarettes Per Day: 10 Smoked in Last 30 Days: No e-Cigarette/Vaping Use: Never Used Second Hand Smoke Exposure: Yes Use of substances other than those prescribed or required for medical reasons: No Advance Directives: No Advance Directives Information Provided: Yes service: No Current occupational status: employed and retired 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 Cognitive needs: No Hearing needs: No Vision needs: Yes Physical Exam 2 Vital Signs: Vital Signs: Last Vital Signs Temp 96.8 F 11/23/24 05:03 Pulse 55 11/23/24 05:03 Resp 20 11/23/24 05:03 BP 107/53 L 11/23/24 08:46 Pulse Ox 95 11/23/24 05:03 O2 Del Method Room Air 11/23/24 05:03 BMI result Body Mass Index 31.4 Const: General: confusion Nutritional Appearance: well nourished O rientation/consciousness: oriented to person, oriented to place, No oriented to time and confusion HEENT: Head: Yes normal to inspection and Yes atraumatic Ears: hearing grossly normal bilaterally and external ears normal General nose exam: Normal external nose present, no nasal discharge noted and no epistaxis Face and sinus: Yes normal facial exam, No abrasion and No laceration Mouth: Normal oral and palatal mucosa present, no drooling and no muffled voice Eyes: General: appearance normal, both eyes and all related structures P eriorbital: periorbital findings normal Eyelids: Yes eyelids normal C onjunctivae: conjunctivae normal Pupils: Equal, round and reactive pupils present EOM: EOMs intact bilaterally Neck: Neck: Yes normal visual inspection, Yes full ROM and Yes no lymphadenopathy Resp: Effort & Inspection: normal respiratory effort and able to speak in complete sentences Neuro: General: oriented to person, oriented to place, No oriented to time and confusion Cranial nerves: Yes Equal, round and reactive pupils present C ognition (Neuro): normal cognition Extrem: General: Yes normal to inspection, Yes full ROM and Yes capillary refill normal Psych: Appearance: grossly normal Mental Status: mental status grossly normal Affect: normal affect Attitude: cooperative Thought process: N ormal thought process present Thought content: Normal thought content present Insight: Good insight present (Psych) Course Reevaluation(s) Reevaluation #1: Time: :45 Date: 11/23/24 Provider: GIDEON Wooten Patient remained in physician observation overnight. There was no acute events. Vital signs are stable. Taking all home p.o. meds without issue. Has been cleared to be discharged to short-term rehab. patient does not require medical admission to the hospital at this time. They are stable for discharge, patient and family updated on plan of care. Physician observation ended at 9:45am. Patient to be placed at a rehab facility. Time: :45 Medications Administered Generic Name Dose Route Start Last Admin Trade Name Dwayne PRN Reason Stop Dose Admin Brimonidine Tartrate 1 drop 11/22/24 21:00 11/23/24 09:19 Brimonidine Tartrate 0.2% Oph 5 Ml Bottle EYE-RIGHT Not Given TID ERVIN Clonazepam 0.5 mg 11/22/24 21:00 11/22/24 21:19 Clonazepam 0.5 Mg Tablet PO 0.5 mg BEDTIME ERVIN Administration Dorzolamide/Timolol 1 drop 11/22/24 21:00 11/23/24 09:19 Dorzolamide/Timolo 2.23%/0.68% 10 Ml Drbtl EYE-RIGHT Not Given TID ERVIN Doxazosin Mesylate 2 mg 11/23/24 09:00 11/23/24 08:46 Doxazosin Mesylate 2 Mg Tablet PO 2 mg DAILY ERVIN Administration Latanoprost 1 drop 11/22/24 21:00 11/22/24 21:19 Latanoprost 0.005 % Ophth Marie 2.5 Ml Drops EYE-RIGHT 1 drop BEDTIME ERVIN Administration Prazosin HCl 1 mg 11/22/24 21:00 11/22/24 21:19 Prazosin Hcl 1 Mg Capsule PO 1 mg BEDTIME ERVIN Administration Protocol Quetiapine Fumarate 25 mg 11/23/24 09:00 11/23/24 08:46 Quetiapine Fumarate 25 Mg Tablet PO 25 mg DAILY ERVIN Administration Quetiapine Fumarate 100 mg 11/22/24 21:00 11/22/24 21:19 Quetiapine Fumarate 100 Mg Tablet PO 100 mg BEDTIME ERVIN Administration Discontinued Medications Generic Name Dose Route Start Last Admin Trade Name Dwayne PRN Reason Stop Dose Admin Iohexol 70 ml 11/22/24 10:46 11/22/24 10:47 Iohexol 350 Mg/Ml 100 Ml Infus..Btl IV 11/22/24 10:47 70 ml ONCE ONE Administration Medical Decision Making Medical Decision Making MDM Narrative: Patient is a 74 year old assigned male at with a history of Lewy body dementia, parkinson's, glaucoma, PTSD, BPH, and OA presenting to the emergency department today with worsening confusion. Patient's physical exam was as noted in the physical exam portion of this note. Patient's blood work was unremarkable. Patient's urine showed no acute process. Patient's EKG was unremarkable. Patient's CTA head/neck showed no acute process but did mention not being able to visualize the left posterior inferior cerebellar artery. I discussed this CTA finding with Dr. Rondon who evaluated the patient and recommended no additional work up or MRI. Patient's clinical presentation is most consistent with worsening Lewy Body dementia. I explained my physical exam findings as well as all test results to the patient and the patient's daughter. I answered all questions asked by the patient and the patient's daughter. I had an extensive conversation with the patient and his daughter about goals of care. Together, we completed a MOLST form confirming the patient is DNR/DNI. Patient to be evaluated with the physical therapy and case management teams for possible placement. Patient placed in observation pending evaluations. Differential Diagnosis Differential Diagnoses: The differential diagnosis associated with the presentation includes Worsening Lewy body dementia Hallucinations Altered mental status Admission/Observation Consideration of admission/observation: Escalation of care including admission/observation considered Patient would have been admitted to the hospital had his work up had any findings where hospital admission was appropriate and his clinical presentation warranted hospital admission. Lab Data [facility] Lab Attestation statement: I reviewed the patient's lab results. My interpretation of these results are in the MDM Rationale portion of this note. 11/22/24 08:36 11/22/24 08:36 Labs: Lab Results 11/22/24 11/22/24 11/22/24 Range/Units 08:36 09:37 13:23 WBC 2.5 L (4.8-10.8) X10*3/uL RBC 4.01 L (4.60-5.80) X10*6/uL Hgb 13.2 L (14.0-18.0) g/dl Hct 37.2 L (42.0-52.0) % MCV 92.8 (80.0-98.0) fL MCH 32.9 (27.0-33.0) pg MCHC 35.5 (31.0-36.0) g/dl RDW 13.4 (11.0-16.0) % Plt Count 111 L D (160-400) X10*3/uL MPV 9.2 L (9.4-12.4) fL Immature Gran % (Auto) 0.0 (0.0-0.4) % Neut % (Auto) 39.5 L (45-73) % Lymph % (Auto) 53.5 H (20-40) % Bailey % (Auto) 3.5 (2-11) % Eos % (Auto) 3.1 (0-4) % Baso % (Auto) 0.4 (0-2) % Lymph # (Auto) 1.4 (1.2-4.9) X10*3/uL Bailey # (Auto) 0.1 (0.1-1.2) X10*3/uL Eos # (Auto) 0.1 (0.0-0.4) X10*3/uL Baso # (Auto) 0.0 (0.0-0.2) X10*3/uL Abs Immat Gran (auto) 0.00 (0.00-0.03) X10*3/uL Absolute Neuts (auto) 1.0 L (2.0-8.3) x10*3/uL Absolute Nucleated RBC 0.000 (0.0-0.012) X10*3/uL Nucleated RBC % (auto) 0.0 (0.0-0.2) /100WBC Sodium 145 (135-145) mmol/L Potassium 3.3 (3.3-5.1) mmol/L Chloride 113 H (96-108) mmol/L Carbon Dioxide 25 (22-29) mmol/L Anion Gap 10 L (12-20) BUN 18 H (9-16) mg/dL Creatinine 0.83 (0.5-1.4) mg/dL Estim Creat Clear Calc 80.0 Estimated GFR > 60 Random Glucose 92 (60-115) mg/dL Calcium 9.0 (8.4-10.2) mg/dL Total Bilirubin 0.7 (0.0-1.0) mg/dL AST 26 (5-37) U/L ALT 22 (0-40) U/L Alkaline Phosphatase 89 (39-117) U/L Ammonia 27 (13-55) umol/L Total Protein 6.5 (6.5-8.0) g/dL Albumin 4.4 (3.5-5.0) g/dL Urine Color Yellow Urine Appearance Clear Urine pH 6.5 (5.0-9.0) Ur Specific Coila 1.010 (1.005-1.025) Urine Protein Negative (Neg-Trace) mg/dL Urine Glucose (UA) Negative (Negative) mg/dL Urine Ketones Negative (Negative) mg/dL Urine Blood Negative (Negative) Urine Nitrite Negative (Negative) Ur Leukocyte Esterase Negative (Negative) Urine RBC 0-2 (0-2) /HPF Urine WBC 0-5 (0-5) /HPF Ur Squamous Epith Cells 0-2 (0-2) /HPF Urine Bacteria None Seen (None Seen) Hyaline Casts 0-2 (0-2) /LPF Influenza Type A (PCR) NEGATIVE (Negative) Influenza Type B (PCR) NEGATIVE (Negative) RSV RNA Qual (PCR) NEGATIVE (Negative) SARS-CoV-2 RNA (RT-PCR) NEGATIVE (Negative) Independent Interpretation I performed an independent interpretation of an: EKG and CT Scan Interpretation: My interpretation is in agreement with the radiologist's impression of this imaging study. L Report Number: [id number]: Total DLP = 0.00 mGy-cm EXAMINATION: CT ANGIOGRAM HEAD AND NECK and unenhanced head CT COMPARISON: MRI brain June 11, 2024 and ultrasound carotid Doppler December 30, 2023 CLINICAL INFORMATION: Slurred speech, confusion TECHNIQUE: The degree of stenosis determined by NASCET criteria. Noncontrast axial imaging of the head was performed. This was followed by test bolus sequences and head and neck intravenous bolus administration 70mL of Omnipaque 350. Helical imaging was performed in the axial plane from the aortic arch to the skull vertex. The data was processed at the pet technologist's workstation for generation of MIP sequences. Angled MIPs and volume rendered reformatted images were also generated at an offline 3D workstation. Stenoses are assessed in accordance with NASCET criteria unless otherwise indicated. This CT examination was performed using dose optimization techniques as appropriate, variously including the following: *Automated exposure control *Adjustment of mA and/or kV according to patient size (this includes techniques or standardized protocols for targeted exams where dose is matched to indication/reason for exam; i.e. extremities or head) *Use of iterative reconstruction technique DLP: 1549 mGy*cm FINDINGS: NONCONTRAST HEAD CT: There is mild generalized atrophy. There is no evidence of intracranial hemorrhage or extra-axial fluid collection. There is no mass effect, or edema. No CT evidence of acute territorial infarct. Ventricles, sulci, and cisterns are normal in size and configuration for patient age. No hydrocephalus. No midline shift. There is minimal white matter hypodensity. Globes and orbital contents image normally. No extracranial soft tissue abnormalities. The paranasal sinuses, mastoid air cells, and tympanic cavities are normally aerated. No suspicious bony abnormalities. NECK CTA: -AORTIC ARCH: Normal in caliber. Mild atheromatous calcification. Three-vessel branching pattern. -GREAT VESSEL ORIGINS: Widely patent. No stenosis. -RIGHT COMMON CAROTID ARTERY: Normal in course and caliber to the level of the bifurcation. Punctate calcification is present in the distal common carotid artery. -CERVICAL RIGHT INTERNAL CAROTID ARTERY: Normal opacification without focal stenosis or occlusion. -LEFT COMMON CAROTID ARTERY: There is multifocal calcified plaque without hemodynamically significant stenosis. -CERVICAL LEFT INTERNAL CAROTID ARTERY: No calcified plaque. No hemodynamically significant stenosis. -CERVICAL RIGHT VERTEBRAL ARTERY: Codominant. Focal calcified plaque is present at the origin without hemodynamically significant stenosis -CERVICAL LEFT VERTEBRAL ARTERY: Codominant. The origin is moderately obscured by beam hardening artifact related to inflow of contrast through the left subclavian vein. OTHER, SOFT TISSUES: -No lymphadenopathy or mass. No abnormal fluid collection or soft tissue swelling. -Normal thyroid. -Imaged superior mediastinal structures normal. -Imaged lung apices clear. CTA OF THE BRAIN: -INTRACRANIAL INTERNAL CAROTID ARTERIES: No focal stenosis or occlusion. -RIGHT ANTERIOR CEREBRAL ARTERY: Normal A1 segment.. Normal arborization of the distal segments. -LEFT ANTERIOR CEREBRAL ARTERY: Normal A1 segment.. Normal arborization of the distal segments. -ANTERIOR COMMUNICATING ARTERY: Normal. -RIGHT MIDDLE CEREBRAL ARTERY: Normal M1 segment of the MCA without focal stenosis or occlusion. Normal bifurcation. Normal arborization of the distal segments. -LEFT MIDDLE CEREBRAL ARTERY: Normal M1 segment of the MCA without focal stenosis or occlusion. Normal bifurcation. Normal arborization of the distal segments. -RIGHT VERTEBRAL ARTERY V4: Normal in course and caliber. Normal PICA branch. -LEFT VERTEBRAL ARTERY V4: Normal in course and caliber. PICA branch not well demonstrated. It is partially obscured by beam hardening artifact related to the skull base. -BASILAR ARTERY: Normal without focal stenosis or occlusion. Normal appearance of the proximal superior cerebellar arteries. Normal basilar tip. -RIGHT POSTERIOR CEREBRAL ARTERY: Normal P1 segment. Normal opacification of the distal MATE FIRST segments. -LEFT POSTERIOR CEREBRAL ARTERY: Normal P1 segment. Normal opacification of the distal MATE FIRST segments. -POSTERIOR COMMUNICATING ARTERIES: Not well seen and probably absent. CT/CT angio head neck IMPRESSION: NONCONTRAST HEAD CT: No intracranial hemorrhage or mass effect. No CT evidence of a large acute territorial infarct. CTA NECK: No hemodynamically significant stenosis. There is calcified plaque in the left common carotid artery. CTA HEAD: Left posterior inferior cerebellar artery is not well visualized. In part, it may be obscured by beam hardening artifact related to the skull base. However, patency is not clearly demonstrated. No other areas concerning for hemodynamically significant stenosis. Posterior communicating arteries are not clearly demonstrated and may be absent. Communicated to GIDEON Banks Electronically signed by: Bernabe Perez MD 11/22/2024 11:57 AM EDT Dictated By: Bernabe Perez MD Signed By: Electronically signed by Bernabe Perez MD 11/22/24 1157 I independently interpreted this EKG and am in agreement with the below findings: Vent. Rate: 65 BPM Atrial Rate: 65 BPM P-R Int: 178 ms QRS Dur: 90 ms QT Int: 424 ms P-R-T Axes: 10 -42 -8 degrees QTcB Int: 440 ms Normal sinus rhythm Left axis deviation When compared with ECG of 24-Aug-2011 13:29, QRS axis Shifted left Borderline criteria for Inferior infarct are no longer Present T wave amplitude has decreased in Anterolateral leads DD/ [id number] Radiology Impression Discussion of test interpretation with radiology: I have reviewed the radiologist's reading. Independent Historian Clinical information obtained from an independent historian. History obtained from or confirmed by: Other (Patient's daughter provided additional history and confirmed the history provided by the patient.) Discharge Plan Discharge Clinical Impression: Hallucinations Lewy body dementia Qualifiers: Dementia severity: unspecified severity Dementia behavioral or psychological symptom: unspecified whether behavioral, psychotic, or mood disturbance or anxiety Qualified Code(s): G31.83 - Neurocognitive disorder with Lewy bodies Parkinson's disease Qualifiers: Dyskinesia presence: unspecified whether dyskinesia Fluctuating manifestations: unspecified whether manifestations fluctuate Qualified Code(s): G20.A1 - Parkinson's disease without dyskinesia, without mention of fluctuations Patient Disposition: Xfer Inpatient Rehab Fac Transfer Details: [facility] Instructions: Parkinson Disease (ED) Additional Instructions: your workup in the emergency department was unremarkable. You are being discharged to short-term rehab. Take all medications as prescribed. Follow-up with your doctor as soon as possible. If you develop new or worsening symptoms call 911 or come back to the ER for further evaluation. Prescriptions: No Action terazosin 2 mg capsule 2 mg PO DAILY 90 Days Qty: 90 1RF quetiapine 100 mg tablet 100 mg PO BEDTIME 30 Days Qty: 30 1RF Nuplazid 34 mg capsule 34 mg PO DAILY 30 Days Qty: 30 6RF Rx Instructions: [place] APPROVED 10/09/2024-11/08/25 latanoprost 0.005 % drops 1 drp ophthalmic-Right BEDTIME brimonidine 0.2 % drops 1 drp ophthalmic-Right TID dorzolamide-timolol 22.3-6.8 mg/mL drops 1 drp ophthalmic-Right TID prazosin 1 mg capsule 1 mg PO BEDTIME memantine 21 mg capsule,sprinkle,ER 24hr 21 mg PO DAILY clonazepam 0.5 mg tablet 0.25 - 0.5 mg PO BEDTIME 30 Days Qty: 30 2RF Rx Instructions: administer 30 minutes before bedtime quetiapine 25 mg tablet 25 mg PO QAM 30 Days Qty: 30 5RF Referrals: [facility] [Outside] Referral Note: Helena BYERS, MD [phone] Print Language: Chinese
[2024-11-22 09:22] LABS: Influenza A PCR NEGATIVE (Negative); Influenza B PCR NEGATIVE (Negative); Resp Syncy Virus RNA Qual PCR NEGATIVE (Negative); SARS COV2 PCR INHOUSE NEGATIVE (Negative)
--- NOTE | 2024-11-22 09:32 | PC.NURSE ---
Hospitalist at bedside.
[2024-11-22 09:41] VITALS: BP 119/75; PULSE 55; RESP 14; O2SAT 97
[2024-11-22 09:52] LABS: Ammonia 27 umol/L (13-55)
[2024-11-22] MEDS: iohexoL 350 MG/ML 100 ML INFUS..BTL 70 ML IV (10:47)
[2024-11-22 13:39] LABS: Appearance Urine Clear; Color Urine Yellow; Glucose Urine UA Negative (Negative); Leukocyte Esterase Urine Negative (Negative); Nitrite Urine Negative (Negative); PH 6.5 (5.0-9.0); Urine Blood Negative (Negative); Urine Ketones Negative (Negative); Urine Protein Negative (Neg-Trace)
--- NOTE | 2024-11-22 14:11 | MHC.CM.ED ---
Received case management consult from Kallie MENESES. Patient came to the ER due to diff ambulating. Work up essentially negative. Physical therapy eval completed. Short term rehab is recommended. Met with patient and daughter, Laura, in regards to discharge planning. Patient lives with Laura, ambulates with a cane and had no services prior to coming to ER. PCP verified. Copy of HCP verified to be on file. Patient denies ever going to [facility]. Patient and Laura agreeable to referral being broadcasted and bed offers being discussed. Patient and Laura aware patient will most likely stay in ER overnight until bed and insurance auth can be obtained. Continue to monitor for d/c needs.
--- NOTE | 2024-11-22 14:50 | PC.NURSE ---
Med rec completed with Pt daughter. Medications entered per information received by Pt daughter.
[2024-11-22 15:23] LABS: Bacteria Urine None Seen (None Seen); Hyaline Casts Urine 0-2 /LPF (0-2); RBC Urine 0-2 /HPF (0-2); Squamous Epithelial Cell Urine 0-2 /HPF (0-2); WBC Urine 0-5 /HPF (0-5)
--- NOTE | 2024-11-22 15:29 | MHC.CM.ED ---
[facility] is able to offer a bed. [facility] is reviewing. Met with patient and daughter Larua. Both accept bed at [facility]. Facility has been asked to obtain ins auth. Continue to monitor for d/c needs.
--- NOTE | 2024-11-22 15:38 | PC.NURSE ---
Pt will be transported to ED Overflow unit while CM dispo pending. Call placed to RN Whit for RN to RN report. All questions answered to satisfaction. Pt awaiting transport.
[2024-11-22 16:03] VITALS: BP 177/80; PULSE 55; RESP 20; TEMP 36.4; O2SAT 99
--- NOTE | 2024-11-22 17:26 | MHC.CM.ED ---
POA and MOLST uploaded into [facility].
[2024-11-22 19:48] VITALS: BP 134/65; PULSE 52; RESP 20; TEMP 36.7; O2SAT 97
--- NOTE | 2024-11-22 20:17 | PHA.MEDREC ---
Pharmacy Consult ? Medication Reconciliation Pharmacy has completed the medication reconciliation. Pharmacy reviewed med rec done by nursing with patients daughter. With assistance of claims also confirmed that pt is on memantine and prazosin. These meds were also continued by provider.
[2024-11-22] MEDS: Dorzolamide/Timolo 2.23%/0.68% 10 ML DRBTL 1 DROP EYE-RIGHT (21:19)
[2024-11-22] MEDS: clonazePAM 0.5 MG TABLET PO (21:19)
[2024-11-22] MEDS: Prazosin HCL 1 MG CAPSULE PO (21:19)
[2024-11-22] MEDS: Brimonidine Tartrate 0.2% Oph 5 ML BOTTLE 1 DROP EYE-RIGHT (21:19)
[2024-11-22] MEDS: QUEtiapine Fumarate 100 MG TABLET PO (21:19)
[2024-11-22] MEDS: Latanoprost 0.005 % Ophth Sol 2.5 ML DROPS 1 DROP EYE-RIGHT (21:19)
--- NOTE | 2024-11-23 03:13 | PC.NURSE ---
Patient A&O to self only . Asleep for the night . Safety measures in place. Bed alarm on , call dan within reach.
[2024-11-23 05:03] VITALS: BP 139/71; PULSE 55; RESP 20; TEMP 36; O2SAT 95
[2024-11-23 08:46] VITALS: BP 107/53
[2024-11-23] MEDS: QUEtiapine Fumarate 25 MG TABLET PO (08:46)
[2024-11-23] MEDS: Doxazosin Mesylate 2 MG TABLET PO (08:46)
--- NOTE | 2024-11-23 09:42 | MHC.CM.ED ---
Patient remains in ER overflow. Insurance auth has been obtained by Tracey Iqbal. Patient can leave at 11am. Gilberto ALONSO booked. Med nec with chart. Patient, daughter Maritza Sanchez RN and Sarita MENESES aware. Continue to monitor for d/c needs.
[2024-11-23 10:29] VITALS: BP 126/62; PULSE 60; RESP 14; TEMP 36.7; O2SAT 98
--- NOTE | 2024-11-23 11:19 | PC.NURSE ---
Report given to Veronica CANCINO @ [facility]. Questions answered, pt resting comfortably in bed awaiting ambulance.
[2024-11-23 11:35] VITALS: BP 126/62; PULSE 60; RESP 14; TEMP 36.7; O2SAT 98
== END 2024-11-23 11:37 ==
PROVIDERS: Emergency Provider Emergency Medicine; PCP Internal Medicine
DX: G31.83 Neurocognitive disorder with Lewy bodies (principal); G20.A1 Parkinson's disease without dyskinesia, without mention of fluctuations; R26.81 Unsteadiness on feet; R41.82 Altered mental status, unspecified; R47.81 Slurred speech; R94.31 Abnormal electrocardiogram [ECG] [EKG]; Z03.818 Encounter for observation for suspected exposure to other biological agents ruled out; Z79.899 Other long term (current) drug therapy
CPT/HCPCS: 0241U; 36415; 70496; 70498; 80053; 81001; 82140; 85025; 93005; 97162; 99285; Q9967

== ENCOUNTER → 2024-11-22 08:19 | Outpatient (BNV) | payer MEDICARE, SELFPAY | PROVIDERS: Emergency Provider Emergency Medicine; PCP Internal Medicine; Visit Provider Internal Medicine | DX: R94.31 Abnormal electrocardiogram [ECG] [EKG] (principal); R41.82 Altered mental status, unspecified | CPT/HCPCS: 93010 ==

== ENCOUNTER → 2024-11-22 10:00 | Outpatient (BNV) | payer MEDICARE, SELFPAY | PROVIDERS: PCP Internal Medicine; Visit Provider Radiology Diagnostic Radiology | DX: R47.81 Slurred speech (principal); R41.0 Disorientation, unspecified | CPT/HCPCS: 70496; 70498 ==